=== PATIENT | female | born 1955 | race Asian ===

== ENCOUNTER 2018-10-03 21:37 | Inpatient (IN) | payer MEDICAID ==
[~2018-10-03] VITALS: Ht 154.9 cm; Wt 68.0 kg
[2018-10-04] MEDS ORDERED: SODIUM CHLORIDE 0.9% 1L BAG IV* STA (00:05)
[2018-10-04] MEDS ORDERED: VANCOMYCIN 1 GM (PMX) 250 ML IVPB STA (00:05)
[2018-10-04] MEDS ORDERED: PIPER-TAZO 3.375 GM IV (PMX) 100 ML IVPB STA (00:05)
[2018-10-04] MEDS ORDERED: morphine 4 MG/ML VIAL IV STA (00:15)
[2018-10-04] MEDS ORDERED: ONDANSETRON 4 MG INJ IV STA (00:15)
[2018-10-04] MEDS ORDERED: LEVETIRACETAM 1000 MG (PMX) 100 ML IVPB ONE (01:00)
[2018-10-04] MEDS ORDERED: VANCOMYCIN IV PER PHARMACY XX SCH (02:30)
[2018-10-04] MEDS ORDERED: DOCUSATE SODIUM 100 MG CAP PO PRN (02:30)
[2018-10-04] MEDS ORDERED: ACETAMINOPHEN 325 MG TAB PO PRN (02:30)
[2018-10-04] MEDS ORDERED: NACL 0.9% 3 ML SYG IV SCH (02:30)
[2018-10-04] MEDS ORDERED: ONDANSETRON 4 MG INJ IV PRN (02:30)
[2018-10-04] MEDS ORDERED: BISACODYL (EC) 5 MG TAB PO PRN (02:30)
--- NOTE | 2018-10-04 02:40 | ERD ---
ER Documentation Chief Complaint Chief Complaint SENT BY PCP R/T MULTIPLE ABSCESS HPI This is a 62-year-old female who was sent by her PCP, for concern for multiple large abscesses, specifically over her left breast, as well as her lower abdominal area. Patient brought in with family, it is unclear what triggered these episodes, she had been itching at them, and they have been going on for about at least a week, however she did not want to see a doctor. She denies fever, she has no history of IV drug use. There are no relieving or have eating factors. ROS All systems reviewed and are negative except as per history of present illness. Allergies Allergies: Coded Allergies: No Known Allergy (Unverified , 10/03/18) Physical Exam Vitals Vital Signs Date Temp Pulse Resp B/P (MAP) Pulse Ox O2 O2 Flow FiO2 Time Delivery Rate 10/03/18 98.0 66 18 154/89 98 22:08 (110) Physical Exam Const: No acute distress Head: Atraumatic Eyes: Normal Conjunctiva ENT: Normal External Ears, Nose and Mouth. Neck: Full range of motion. No meningismus. Resp: Clear to auscultation bilaterally Cardio: Regular rate and rhythm, no murmurs Abd: Soft, non tender, non distended. Normal bowel sounds Skin: No petechiae or rashes. Exam performed with yordy Alba, there is a large frequent 4 x 4 area of erythema and induration, with purulence noted at the left breast, and additional approximate 3 x 3 area is also noted of erythema and induration, with drainage in the left lower abdomen. Back: No midline or flank tenderness Ext: No cyanosis, or edema Neur: Awake and alert Psych: Normal Mood and Affect Result Diagram: 10/04/18 0020 10/04/18 0020 Results 24 hrs Laboratory Tests Test 10/04/18 00:20 10/04/18 00:21 10/04/18 00:33 10/04/18 00:35 White Blood Count 6.1 10^3/ul Red Blood Count 4.60 10^6/ul Hemoglobin 12.4 g/dl Hematocrit 38.9 % Mean Corpuscular 84.6 fl Volume Mean Corpuscular 27.0 pg Hemoglobin Mean Corpuscular 31.9 g/dl Hemoglobin Concen t Red Cell 13.8 % Distribution Width Platelet Count 250 10^3/UL Mean Platelet 9.9 fl Volume Immature 0.200 % Granulocytes % Neutrophils % 49.6 % Lymphocytes % 39.9 % Monocytes % 7.2 % Eosinophils % 2.9 % Basophils % 0.2 % Nucleated Red 0.0 /100WBC Blood Cells % Immature 0.010 10^3/ul Granulocytes # Neutrophils # 3.1 10^3/ul Lymphocytes # 2.5 10^3/ul Monocytes # 0.4 10^3/ul Eosinophils # 0.2 10^3/ul Basophils # 0.0 10^3/ul Nucleated Red 0.0 10^3/ul Blood Cells # Prothrombin Time 12.1 Sec Prothrombin Time 0.9 Ratio INR International 0.89 Normalized Ratio Activated 35.5 Sec Partial Thrombopl ast Time Sodium Level 141 mmol/L Potassium Level 4.2 mmol/L Chloride Level 103 mmol/L Carbon Dioxide 31 mmol/L Level Anion Gap 7 Blood Urea 10 mg/dl Nitrogen Creatinine 0.57 mg/dl Est Glomerular > 60 mL/min Filtrat Rate mL/min Glucose Level 103 mg/dl Lactic Acid Level 1.0 mmol/L Calcium Level 9.5 mg/dl Total Bilirubin 0.4 mg/dl Direct Bilirubin 0.00 mg/dl Indirect 0.4 mg/dl Bilirubin Aspartate Amino 23 IU/L Transf (AST/SGOT) Alanine 28 IU/L Aminotransferase (ALT/SGPT) Alkaline 63 IU/L Phosphatase Troponin I < 0.012 ng/ml Total Protein 7.2 g/dl Albumin 4.0 g/dl Globulin 3.20 g/dl Albumin/Globulin 1.25 Ratio Urine Color YELLOW Urine Clarity CLEAR Urine pH 7.0 Urine Specific 1.013 [place] Urine Ketones NEGATIVE mg/dL Urine Nitrite NEGATIVE mg/dL Urine Bilirubin NEGATIVE mg/dL Urine NEGATIVE mg/dL Urobilinogen Urine Leukocyte NEGATIVE Bear/ul Esterase Urine Hemoglobin NEGATIVE mg/dL Urine Glucose NEGATIVE mg/dL Urine Total NEGATIVE mg/dl Protein Urine Opiates Negative Screen Urine Negative Barbiturates Urine Negative Amphetamines Screen Urine Negative Benzodiazepines Screen Urine Cocaine Negative Screen Urine Negative Cannabinoids POC Venous 0.8 mmol/L Lactate Current Medications Medications Dose Sig/Gunjan Start Time Status Last (Trade) Ordered Route PRN Stop Time Admin Dose Reason Admin Sodium 2,050 ml BOLUS OVER 2 10/04/18 DC 10/04/18 Chloride HOURS STAT 00:05 00:56 (NS) IV* 10/04/18 00:11 Vancomycin 250 ml @ ONCE STAT 10/04/18 DC 10/04/18 HCl 125 mls/hr IVPB 00:05 00:57 10/04/18 02:04 Piperacillin 100 ml @ ONCE STAT 10/04/18 DC 10/04/18 Sod/ 200 mls/hr IVPB 00:05 00:30 Tazobactam 10/04/18 00:34 Sod Morphine 4 mg ONCE STAT 10/04/18 DC 10/04/18 Sulfate IV 00:15 00:56 (morphine) 10/04/18 00:17 Ondansetron 4 mg ONCE STAT 10/04/18 DC 10/04/18 HCl (Zofran IV 00:15 00:56 Inj) 10/04/18 00:17 100 ml @ ONCE ONCE 10/04/18 DC Levetiracetam 400 mls/hr IVPB 01:00 10/04/18 01:14 Sodium 1,000 ml @ [id number] IV 10/04/18 Chloride 80 mls/hr 02:05 IV Flush 3 ml PER 10/04/18 (NS 3 ml) PROTOCOL IV 02:30 Ondansetron 4 mg Q6H PRN 10/04/18 HCl (Zofran IV 02:30 Inj) NAUSEA/VOMITI NG 650 mg Q6H PRN 10/04/18 Acetaminophen PO .PAIN 1-3 02:30 (Tylenol OR TEMP Tab) 1 tab Q6H PRN 10/04/18 Acetaminophen PO .MOD PAIN 02:30 / 4-6 Hydrocodone Bitart ([place] (5/325)) Docusate 100 mg Q12H PRN 10/04/18 Sodium PO 02:30 (Colace) .CONSTIPATION Bisacodyl 5 mg DAILY PRN 10/04/18 (Dulcolax) PO 02:30 .CONSTIPATION Vancomycin VANCOMYCIN PER 10/04/18 HCl (Vanco PER PHARMACY PROTOCOL XX 02:30 Iv Per Pharmacy) Piperacillin 100 ml @ Q6 IVPB 10/04/18 Sod/ 200 mls/hr 06:00 Tazobactam Sod Vancomycin 250 ml @ Q12H IVPB 10/04/18 HCl 125 mls/hr 13:00 Procedures/MDM This is a 62-year-old female presents for evaluation of possible abscess. My primary concern, given multiple lesions is for possible bloodstream infection, patient has no history of immunosuppression, she has not an IV drug user, the etiology of the lesions is unclear, they have it may have started excoriations, which developed into open wounds which were untreated. She will be treated empirically with IV antibiotics, and will be admitted. Patient has no evidence of sepsis or severe sepsis. EKG: Rate/Rhythm: Normal Sinus Rhythm QRS, ST, T-waves: No changes consistent w/ acute ischemia Impression: No evidence of ischemia or arrhythmia Accepting Care Team: Current data and ongoing care discussed. Primary: Ray Consulting: Dennis Outstanding Data: Ultrasound, CT abdomen pelvis results Departure Diagnosis: Primary Impression: Abscess Additional Impression: Cellulitis Site of cellulitis: unspecified site Qualified Codes: L03.90 - Cellulitis, unspecified Condition: Stable CLEMENTE HALL MD October 04, 2018 02:40
[2018-10-04] MEDS ORDERED: IBUP200C11 PO (03:29)
[2018-10-04] MEDS: SOD CHLORIDE 0.9% 1,000 ML IV SCH ×3 (04:53→19:28)
--- NOTE | 2018-10-04 05:45 | HP ---
Date/Time of Note Date/Time of Note DATE: 10/04/18 TIME: 05:35 Assessment/Plan VTE Prophylaxis SCD applied (from Nsg): Yes Pharmacological prophylaxis: NA/contraindicated Pharm contraindication: low risk/ambulating Lines/Catheters IV Catheter Type (from Nrsg): Saline Lock Assessment/Plan Hospital Course This is a 62-year-old female being admitted to the [facility] floor for: #1 left abdominal wall abscess: CT scan shows: Skin thickening and subcutaneous stranding across the lower ventral abdominal wall with a focal area of nodular thickening within the left lower ventral abdominal wall measuring 2.3 x 1.5 cm. Findings could suggest an abscess. Broad-spectrum antibiotics of vancomycin and Zosyn. General surgery Dr. Collins has been consulted for incision and debridement by [facility]. Will keep patient n.p.o., IV fluid hydration normal saline. Pain management. Zofran for nausea. #2 left breast abscess: 2.7 x 0.8 cm heterogeneous subcutaneous lesion at the 3 o'clock position of the left breast. This may represent a complex fluid collection or abscess. On broad-spectrum antibiotic to vancomycin and Zosyn and again Dr. Collins of general surgery has been consulted. #3 DVT GI prophylaxis: SCDs, no GI prophylaxis indicated Further treatment strategy will be implemented as per the clinical course Result Diagram: 10/04/18 0020 10/04/18 0020 Results 24hrs Laboratory Tests Test 10/04/18 00:20 10/04/18 00:21 10/04/18 00:33 10/04/18 00:35 White Blood Count 6.1 Red Blood Count 4.60 Hemoglobin 12.4 Hematocrit 38.9 Mean Corpuscular 84.6 Volume Mean Corpuscular 27.0 L Hemoglobin Mean Corpuscular 31.9 L Hemoglobin Concent Red Cell 13.8 Distribution Width Platelet Count 250 Mean Platelet Volume 9.9 Immature 0.200 Granulocytes % Neutrophils % 49.6 Lymphocytes % 39.9 Monocytes % 7.2 Eosinophils % 2.9 Basophils % 0.2 Nucleated Red Blood 0.0 Cells % Immature 0.010 Granulocytes # Neutrophils # 3.1 Lymphocytes # 2.5 Monocytes # 0.4 Eosinophils # 0.2 Basophils # 0.0 Nucleated Red Blood 0.0 Cells # Prothrombin Time 12.1 Prothrombin Time 0.9 Ratio INR International 0.89 Normalized Ratio Activated 35.5 H Partial Thromboplast Time Sodium Level 141 Potassium Level 4.2 Chloride Level 103 Carbon Dioxide Level 31 Anion Gap 7 Blood Urea Nitrogen 10 Creatinine 0.57 Est Glomerular > 60 Filtrat Rate mL/min Glucose Level 103 Lactic Acid Level 1.0 Calcium Level 9.5 Total Bilirubin 0.4 Direct Bilirubin 0.00 Indirect Bilirubin 0.4 Aspartate Amino 23 Transf (AST/SGOT) Alanine 28 Aminotransferase (AL T/SGPT) Alkaline Phosphatase 63 Troponin I < 0.012 Total Protein 7.2 Albumin 4.0 Globulin 3.20 Albumin/Globulin 1.25 Ratio Urine Color YELLOW Urine Clarity CLEAR Urine pH 7.0 Urine Specific 1.013 [place] Urine Ketones NEGATIVE Urine Nitrite NEGATIVE Urine Bilirubin NEGATIVE Urine Urobilinogen NEGATIVE Urine Leukocyte NEGATIVE Esterase Urine Hemoglobin NEGATIVE Urine Glucose NEGATIVE Urine Total Protein NEGATIVE Urine Opiates Screen Negative Urine Barbiturates Negative Urine Amphetamines Negative Screen Urine Negative Benzodiazepines Screen Urine Cocaine Screen Negative Urine Cannabinoids Negative POC Venous Lactate 0.8 HPI/ROS Admit Date/Time Admit Date/Time Hx of Present Illness Chief complaint: Sent in by PCP for abscesses of her breast and abdomen This is a 62-year-old female who was sent by her PCP, for concern for multiple large abscesses, specifically over her left breast, as well as her lower abdominal area. Patient reports that she lives by herself and that she had possibly eaten something a few days ago that caused her to get severe itching. She has been itching her breast and her abdomen over the last few days and developed bumps on her left breast as well as abdomen that have become more red and has started leaking over the last few days. She denies any fevers. She has no history of IV drug use. Allergies: NKDA Medications: None ROS Const: As per HPI ENT: No pain, sore throat, congestion, congestion, dysphagia or discharge Respiratory: No shortness of breath, cough, sputum, wheezing, or pleuritic pain Cardiovascular: No chest pain, palpitation, PND, or edema GI : no change in appetite, abdominal pain, nausea, vomiting, diarrhea, constipation, or change in the color his stool Genitourinary: No dysuria, hematuria, flank pain , discharge or CVA tenderness Musculoskeletal: No joint pain, back pain, neck pain, restricted range of motion in neck or joints Skin: As per HPI Neuro: No headache, dizziness, syncope, seizure, focal weakness Endocrine: No polyuria, polydipsia, temperature intolerance Psych: No hallucination, depression, anxiety or suicidal ideation PMH/Family/Social Past Medical History Medical History: no pertinent history Medications Current Medications Sodium Chloride 1,000 ml @ 80 mls/hr [id number] IV Last administered on 10/04/18at 04:53; Admin Dose 80 MLS/HR; Start 10/04/18 at 02:05 IV Flush (NS 3 ml) 3 ml PER PROTOCOL IV ; Start 10/04/18 at 02:30 Ondansetron HCl (Zofran Inj) 4 mg Q6H PRN IV NAUSEA/VOMITING; Start 10/04/18 at 02:30 Acetaminophen (Tylenol Tab) 650 mg Q6H PRN PO .PAIN 1-3 OR TEMP; Start 10/04/18 at 02:30 Acetaminophen/ Hydrocodone Bitart ([place] (5/325)) 1 tab Q6H PRN PO .MOD PAIN 4- 6; Start 10/04/18 at 02:30 Docusate Sodium (Colace) 100 mg Q12H PRN PO .CONSTIPATION; Start 10/04/18 at 02:30 Bisacodyl (Dulcolax) 5 mg DAILY PRN PO .CONSTIPATION; Start 10/04/18 at 02:30 Vancomycin HCl (Vanco Iv Per Pharmacy) VANCOMYCIN PER PHARMACY PER PROTOCOL XX ; Start 10/04/18 at 02:30 Piperacillin Sod/ Tazobactam Sod 100 ml @ 200 mls/hr Q6 IVPB ; Start 10/04/18 at 06:00 Vancomycin HCl 250 ml @ 125 mls/hr Q12H IVPB ; Start 10/04/18 at 13:00 Coded Allergies: No Known Allergy (Unverified , 10/03/18) Past Surgical History Past Surgical Hx: no surgical history Family History Significant Family History: no pertinent family hx Social History Alcohol Use: none Smoking Status: Never smoker Drug Use: none Exam/Review of Systems Vital Signs Vitals Vital Signs Date Temp Pulse Resp B/P (MAP) Pulse Ox O2 O2 Flow FiO2 Time Delivery Rate 10/04/18 72 13 120/67 96 Room Air 04:16 (84) 10/03/18 98.0 22:08 Exam Exam General: Currently lying in bed in mild discomfort from her breast and abdominal abscess HEENT: Atraumatic, normocephalic. The pupils are equal, round and reactive. Extraocular motor are intact Neck: Supple with full range of motion. No rigidity or meningismus Chest: Nontender Lungs: Clear to auscultation bilaterally no crackles rales or wheezing Heart: Normal S1-S2, Regular rhythm and rate. No murmur, S3, or S4 Abdomen: Soft , nontender, nondistended , bowel sounds are present. No guarding no rebound tenderness , No masses or organomegaly. No costovertebral temporal angle mass Extremities: Normal to inspection, no edema no cyanosis Skin: Left breast approximately 2 x 1 cm abscess, serosanguineous discharge, erythematous, mild tenderness to palpation, abdominal wall abscess approximately 2 x 2 centimeter, serosanguineous drainage, tender to palpation erythematous Neurologic: Normal mental status, speech normal, cranial nerves II through XII are intact, motor and sensory are intact, Additional Comments PROCEDURE: CT Abdomen and pelvis without contrast. CLINICAL INDICATION: Abdominal pain. TECHNIQUE: CT scan of the abdomen and pelvis was performed on a multi- detector high-resolution CT scanner. Contiguous axial images were obtained from the lung bases to the ischial tuberosities without intravenous contrast. Coronal and sagittal reformatted images were also obtained. Images were reviewed on the PACS workstation. DICOM images are available. One or more of the following dose reduction techniques were used: - Automated exposure control. - Adjustment of the mA and/or kV according to patient size. - Use of iterative reconstruction technique. Exam CTD/vol = 10.34 mGy. Total exam DLP = 605.35 mGy-cm. COMPARISON: None. FINDINGS: Evaluation of the lung bases demonstrates mild bibasilar atelectasis. Abdomen: The liver is normal in size. There is no focal mass or dilatation of the biliary tree. The gallbladder is not distended. The spleen, pancreas and bilateral adrenal glands are within normal limits. Bilateral kidneys are normal in size with no contour deforming mass identified. There is no radiopaque renal or ureteral calculus identified. There is no hydronephrosis or hydroureter. There is no retroperitoneal adenopathy. The abdominal aorta is of normal caliber. There is skin thickening or across the lower ventral abdominal wall with subcutaneous stranding. There is an area of focal nodular thickening within the left lower ventral abdominal wall measuring 2.3 x 1.5 cm. There is no bowel obstruction or free air. A normal appendix is identified. There is no diverticulosis or diverticulitis. There is no ascites. Pelvis: The bladder is unremarkable. The uterus and adnexa are within normal limits. There is no significant pelvic adenopathy or free fluid. Evaluation of the osseous structures demonstrates no suspicious lytic or blastic lesion. IMPRESSION: Skin thickening and subcutaneous stranding across the lower ventral abdominal wall with a focal area of nodular thickening within the left lower ventral abdominal wall measuring 2.3 x 1.5 cm. Findings could suggest an abscess; however, study is limited by lack of intravenous contrast. .Juan Reeder MD, MD Date Time Electronically viewed and signed by .Juan Reeder MD, MD on 10/04/2018 03:49 .T/ CC: CLEMENTE HALL MD [id number] PROCEDURE: Left breast ultrasound. CLINICAL INDICATION: Left breast pain. Evaluate for abscess. TECHNIQUE: Left whole breast and axillary sonography was performed. COMPARISON: US BREAST 11/10/2016. FINDINGS: 93 o'clock position of the left breast, there is a heterogeneous subcutaneous ovoid lesion measuring 2.7 x 0.8 cm. Soft tissue swelling is noted. No dominant cysts are present. No malignant adenopathy is identified. IMPRESSION: 1. 2.7 x 0.8 cm heterogeneous subcutaneous lesion at the 3 o'clock position of the left breast. This may represent a complex fluid collection or abscess. Correlate clinically. BI-RADS 3 short-term follow up is recommended. Physician Shelby Date Time Electronically viewed and signed by Physician Shelby on 10/04/2018 04:40 CS/ CC: CLEMENTE HALL MD [id number] ROGERIO NUNN 17, 2019 05:45
[2018-10-04] MEDS: PIPER-TAZO 3.375 GM IV (PMX) 100 ML IVPB SCH ×3 (06:19→18:40)
[2018-10-04 08:30] VITALS: Ht 154.9 cm; Wt 68.0 kg
[2018-10-04 08:39] VITALS: BP 152/78; PULSE 68; RESP 18
[2018-10-04] MEDS: HYDROCODONE/APAP (5/325) TAB PO PRN ×3 (10:50→21:59)
--- NOTE | 2018-10-04 11:44 | EN ---
Date/Time of Note Date/Time of Note DATE: 10/04/18 TIME: 11:43 Event Note Medicine Medicine Event Note 62-year-old female who was admitted earlier today when she had come in with multiple abscesses sent by her PCP. She has had severe itching over the last few days and abscesses have occurred subsequently. She is currently admitted and managed as follows: 1. Multiple abscesses over breast and abdomen -CT of the abdomen did show left lower ventral abdominal wall abscess measuring 2 x 1 cm -Left breast ultrasound shows 2 x 0 point 8 subcutaneous abscess also left breast 2. Hypertension: Suboptimal control -Resume home meds and titrate for optimization 3. Elevated TSH, subclinical hypothyroidism -Check free T4 Plan: -We will try to get wound cultures, warm compresses -General surgery consultation has been obtained, which recommendations -We will also order infectious disease consult -Continue IV antibiotics and supportive care. DEMAR STEELE October 04, 2018 11:44
[2018-10-04 13:33] VITALS: BP 139/73; PULSE 57; RESP 18
[2018-10-04] MEDS: VANCOMYCIN 1 GM 250 ML IVPB SCH (14:24)
--- NOTE | 2018-10-04 14:24 | RADRPT ---
Vent Rate: 70 bpm RR Interval: 0 msec MD Interval: 168 msec QRS Duration: 84 msec QT Interval: 408 msec QTC Interval: 440 msec P-R-T [place]: 68 - 76 - 55 degrees Normal sinus rhythm Nonspecific ST abnormality Abnormal ECG Electronically Signed By: [facility]
[2018-10-04 20:00] VITALS: BP 138/73; PULSE 60; RESP 16
--- NOTE | 2018-10-04 22:17 | QN ---
Documentation Comment Spoke to Dr. Collins of surgery. He did request an IR consultation for aspiration of the abscesses, if the abscesses are not amenable to IR aspiration then he will proceed to surgical I&D. Consult is in place for IR. ROGERIO NUNN October 04, 2018 22:17
[2018-10-05] VITALS (15 sets, daily range): BP systolic 114–153; BP diastolic 58–72; PULSE 56–88; RESP 10–18
[2018-10-05] MEDS: PIPER-TAZO 3.375 GM IV (PMX) 100 ML IVPB SCH ×5 (00:06→23:17)
[2018-10-05] MEDS: VANCOMYCIN 1 GM 250 ML IVPB SCH ×2 (01:22→16:57)
--- NOTE | 2018-10-05 09:13 | PN ---
Date/Time of Note Date/Time of Note DATE: 10/05/18 TIME: 09:13 Assessment/Plan VTE Prophylaxis Risk score (from Ns)>0 risk: 1 SCD applied (from Ns): Yes Pharmacological prophylaxis: NA/contraindicated Pharm contraindication: low risk/ambulating Lines/Catheters IV Catheter Type (from Nrsg): Peripheral IV Urinary Cath still in place: No Assessment/Plan Assessment/Plan 1. Left breast abscess - Still with drainage and patient complaining of pain with dressing changes - Continue current antibiotics and await culture results - General surgery on board and appreciate recommendations. Recommending IR drainage first and if unable to perform will take to OR but would like to avoid. - Pain control 2. Left abdominal wall abscess - Gen surgery recommending IR drainage as well - Continue local wound care - IV antibiotics on board 3. Disposition - Awaiting drainage of abscesses - continue IV antibiotics and awaiting culture results Result Diagram: 10/05/18 0427 10/05/18 0427 Results 24hrs Laboratory Tests Test 10/05/18 04:27 White Blood Count 4.9 Red Blood Count 4.34 Hemoglobin 11.7 L Hematocrit 37.0 Mean Corpuscular Volume 85.3 Mean Corpuscular Hemoglobin 27.0 L Mean Corpuscular Hemoglobin Concent 31.6 L Red Cell Distribution Width 13.5 Platelet Count 225 Mean Platelet Volume 10.2 Immature Granulocytes % 0.200 Neutrophils % 53.2 Lymphocytes % 33.9 Monocytes % 8.6 Eosinophils % 3.9 Basophils % 0.2 Nucleated Red Blood Cells % 0.0 Immature Granulocytes # 0.010 Neutrophils # 2.6 Lymphocytes # 1.7 Monocytes # 0.4 Eosinophils # 0.2 Basophils # 0.0 Nucleated Red Blood Cells # 0.0 Sodium Level 139 Potassium Level 4.1 Chloride Level 105 Carbon Dioxide Level 28 Anion Gap 6 Blood Urea Nitrogen 6 L Creatinine 0.68 Est Glomerular Filtrat Rate mL/min > 60 Glucose Level 76 Calcium Level 8.7 Total Bilirubin 0.6 Direct Bilirubin 0.00 Indirect Bilirubin 0.6 Aspartate Amino Transf (AST/SGOT) 27 Alanine Aminotransferase (ALT/SGPT) 21 Alkaline Phosphatase 44 Total Protein 6.7 Albumin 3.5 Globulin 3.20 Albumin/Globulin Ratio 1.09 Free Thyroxine 1.53 Subjective 24 Hr Interval Summary Free Text/Dictation Patient is complaining of pain and discomfort in left breast and left lower abdominal area. Discussed with Gen Surgery that best to try IR drainage before I&D in the OR. No acute overnight events. Exam/Review of Systems Exam Vitals Vital Signs Date Temp Pulse Resp B/P (MAP) Pulse Ox O2 O2 Flow FiO2 Time Delivery Rate 10/05/18 98.3 63 16 132/67 96 Room Air 07:22 (88) Intake and Output 10/04/18 10/04/18 10/05/18 1515:00 23:00 07:00 IntakeIntake Total 200 ml 1350 ml 1150 ml BalanceBalance 200 ml 1350 ml 1150 ml Exam General: Distress secondary to pain when moves or breast/abdominal areas touched Neck: Supple Chest: Tender left breast Lungs: Clear to auscultation bilaterally no crackles rales or wheezing Heart: Normal S1-S2, Regular rhythm and rate. No murmur, S3, or S4 Abdomen: Soft , tenderness LLQ at site of abscess, protuberant , bowel sounds are present. No guarding no rebound tenderness , No masses or organomegaly. No costovertebral temporal angle mass Extremities: Normal to inspection, no edema no cyanosis Skin: Left breast abscess with erythema, serous discharge, purulent fluid, erythematous, tender to palpation, abdominal wall abscess approximately 2 x 2 centimeter with surround erythema, and serosanguineous drainage Neurologic: Normal mental status, speech normal, cranial nerves II through XII are intact, motor and sensory are intact, Results Results 24hrs Laboratory Tests Test 10/05/18 04:27 White Blood Count 4.9 Red Blood Count 4.34 Hemoglobin 11.7 L Hematocrit 37.0 Mean Corpuscular Volume 85.3 Mean Corpuscular Hemoglobin 27.0 L Mean Corpuscular Hemoglobin Concent 31.6 L Red Cell Distribution Width 13.5 Platelet Count 225 Mean Platelet Volume 10.2 Immature Granulocytes % 0.200 Neutrophils % 53.2 Lymphocytes % 33.9 Monocytes % 8.6 Eosinophils % 3.9 Basophils % 0.2 Nucleated Red Blood Cells % 0.0 Immature Granulocytes # 0.010 Neutrophils # 2.6 Lymphocytes # 1.7 Monocytes # 0.4 Eosinophils # 0.2 Basophils # 0.0 Nucleated Red Blood Cells # 0.0 Sodium Level 139 Potassium Level 4.1 Chloride Level 105 Carbon Dioxide Level 28 Anion Gap 6 Blood Urea Nitrogen 6 L Creatinine 0.68 Est Glomerular Filtrat Rate mL/min > 60 Glucose Level 76 Calcium Level 8.7 Total Bilirubin 0.6 Direct Bilirubin 0.00 Indirect Bilirubin 0.6 Aspartate Amino Transf (AST/SGOT) 27 Alanine Aminotransferase (ALT/SGPT) 21 Alkaline Phosphatase 44 Total Protein 6.7 Albumin 3.5 Globulin 3.20 Albumin/Globulin Ratio 1.09 Free Thyroxine 1.53 Medications Medication Current Medications Sodium Chloride 1,000 ml @ 80 mls/hr [id number] IV Last administered on 10/04/18at 19:28; Admin Dose 80 MLS/HR; Start 10/04/18 at 02:05 IV Flush (NS 3 ml) 3 ml PER PROTOCOL IV ; Start 10/04/18 at 02:30 Ondansetron HCl (Zofran Inj) 4 mg Q6H PRN IV NAUSEA/VOMITING; Start 10/04/18 at 02:30 Acetaminophen (Tylenol Tab) 650 mg Q6H PRN PO .PAIN 1-3 OR TEMP; Start 10/04/18 at 02:30 Acetaminophen/ Hydrocodone Bitart ([place] (5/325)) 1 tab Q6H PRN PO .MOD PAIN 4- 6 Last administered on 10/04/18at 21:59; Admin Dose 1 TAB; Start 10/04/18 at 02:3 0 Docusate Sodium (Colace) 100 mg Q12H PRN PO .CONSTIPATION; Start 10/04/18 at 02:30 Bisacodyl (Dulcolax) 5 mg DAILY PRN PO .CONSTIPATION; Start 10/04/18 at 02:30 Vancomycin HCl (Vanco Iv Per Pharmacy) VANCOMYCIN PER PHARMACY PER PROTOCOL XX ; Start 10/04/18 at 02:30 Piperacillin Sod/ Tazobactam Sod 100 ml @ 200 mls/hr Q6 IVPB Last administered on 10/05/18at 05:24; Admin Dose 200 MLS/HR; Start 10/04/18 at 06:00 Vancomycin HCl 250 ml @ 125 mls/hr Q12H IVPB Last administered on 10/05/18at 01:22; Admin Dose 125 MLS/HR; Start 10/04/18 at 13:00 Miscellaneous Information (*Rx Drug Level Order Reminder*) VANCOMYCIN TROUGH AT 1200 ONCE ONCE XX ; Start 10/05/18 at 12:00; Stop 10/05/18 at 12:01 CHARLINE OCHOA MD October 05, 2018 09:13
[2018-10-05] MEDS: SOD CHLORIDE 0.9% 1,000 ML IV SCH (11:29)
--- NOTE | 2018-10-05 13:07 | CONS ---
Assessment/Plan Assessment/Plan Assessment/Plan (Daily) Soft tissue infection possibly secondary to trauma from pruritus. Now has evolved into soft tissue infection versus abscess left breast and left anterior abdominal wall. These seem less likely to be amenable to percutaneous drainage and appeared to require surgical debridement. I discussed with the patient regulations for surgical debridement which would involve debriding nonviable lysed tissue and leaving the wounds open for secondary closure. Patient understands risk of symptoms include possibility of finding infectious agent which may require subsequent to treatment, antibiotics or further surgery. OR has been called we will proceed to approved soon is time to be available. Consultation Date/Type/Reason Admit Date/Time Date of Consultation: October 05, 2018 Type of Consult General surgery Reason for Consultation Abdominal wall soft tissue infection and left breast inflammation Requesting Provider: ROGERIO NUNN Date/Time of Note DATE: 10/05/18 TIME: 13:06 Hx of Present Illness Patient noted several days of increasing itching and pain and swelling in the left breast and left abdominal wall. Patient states that she thought she had an allergic reaction to some food and was itching her abdomen and breast and subse quently appears to have developed infection. Initially she thought that she had a small pimple squeeze but the itching continued she presented to the emergency room for evaluation she was noted to have multiple small abscesses left breast and a larger on the left and anterior abdominal wall. These have not been noted in the past. Patient has no significant past medical history no similar past surgical history. Patient denies any illicit drug use denies any skin popping does not use needles or any other trauma noted. On CAT scan there is a 2-1/2 x 3 cm in the left anterior abdominal wall with some stranding consistent with soft tissue infection left breast there is a second area which was approximately 2 cm with some mixed density consistent with soft tissue infection versus abscess Past Medical History Medical History: no pertinent history Home Meds Reported Medications Ibuprofen* (Advil*) 200 Mg Capsule, 200 MG PO Q6H PRN for PAIN, CAP 10/04/18 Medications Current Medications Sodium Chloride 1,000 ml @ 80 mls/hr [id number] IV Last administered on 10/05/18at 11:29; Admin Dose 80 MLS/HR; Start 10/04/18 at 02:05 IV Flush (NS 3 ml) 3 ml PER PROTOCOL IV ; Start 10/04/18 at 02:30 Ondansetron HCl (Zofran Inj) 4 mg Q6H PRN IV NAUSEA/VOMITING; Start 10/04/18 at 02:30 Acetaminophen (Tylenol Tab) 650 mg Q6H PRN PO .PAIN 1-3 OR TEMP; Start 10/04/18 at 02:30 Acetaminophen/ Hydrocodone Bitart ([place] (5/325)) 1 tab Q6H PRN PO .MOD PAIN 4- 6 Last administered on 10/04/18at 21:59; Admin Dose 1 TAB; Start 10/04/18 at 02:30 Docusate Sodium (Colace) 100 mg Q12H PRN PO .CONSTIPATION; Start 10/04/18 at 02:30 Bisacodyl (Dulcolax) 5 mg DAILY PRN PO .CONSTIPATION; Start 10/04/18 at 02:30 Vancomycin HCl (Vanco Iv Per Pharmacy) VANCOMYCIN PER PHARMACY PER PROTOCOL XX ; Start 10/04/18 at 02:30 Piperacillin Sod/ Tazobactam Sod 100 ml @ 200 mls/hr Q6 IVPB Last administered on 10/05/18at 11:29; Admin Dose 200 MLS/HR; Start 10/04/18 at 06:00 Vancomycin HCl 250 ml @ 125 mls/hr Q12H IVPB Last administered on 10/05/18at 01:22; Admin Dose 125 MLS/HR; Start 10/04/18 at 13:00 Allergies: Coded Allergies: No Known Allergy (Unverified , 10/03/18) Past Surgical History Past Surgical Hx: no surgical history Social History Alcohol Use: none Smoking Status: Never smoker Drug Use: none Exam/Review of Systems Exam Vitals Vital Signs Date Temp Pulse Resp B/P (MAP) Pulse Ox O2 O2 Flow FiO2 Time Delivery Rate 10/05/18 98.3 63 16 132/67 96 Room Air 07:22 (88) Intake and Output 10/04/18 10/04/18 10/05/18 1515:00 23:00 07:00 IntakeIntake Total 200 ml 1350 ml 1150 ml BalanceBalance 200 ml 1350 ml 1150 ml Exam The left breast there is erythema tenderness consistent with a cellulitis and area of fluctuance the left periareolar area there is no palpable masses there is no lymphadenopathy. On the left anterior abdominal wall there is a ulcerated wound with some fibrinous exudate and surrounding erythema. There is no spontaneous drainage. Results Result Diagram: 10/05/18 0427 10/05/18 0427 Results 24hrs Laboratory Tests Test 10/05/18 04:27 10/05/18 12:03 White Blood Count 4.9 Red Blood Count 4.34 Hemoglobin 11.7 L Hematocrit 37.0 Mean Corpuscular Volume 85.3 Mean Corpuscular Hemoglobin 27.0 L Mean Corpuscular Hemoglobin Concent 31.6 L Red Cell Distribution Width 13.5 Platelet Count 225 Mean Platelet Volume 10.2 Immature Granulocytes % 0.200 Neutrophils % 53.2 Lymphocytes % 33.9 Monocytes % 8.6 Eosinophils % 3.9 Basophils % 0.2 Nucleated Red Blood Cells % 0.0 Immature Granulocytes # 0.010 Neutrophils # 2.6 Lymphocytes # 1.7 Monocytes # 0.4 Eosinophils # 0.2 Basophils # 0.0 Nucleated Red Blood Cells # 0.0 Sodium Level 139 Potassium Level 4.1 Chloride Level 105 Carbon Dioxide Level 28 Anion Gap 6 Blood Urea Nitrogen 6 L Creatinine 0.68 Est Glomerular Filtrat Rate mL/min > 60 Glucose Level 76 Calcium Level 8.7 Total Bilirubin 0.6 Direct Bilirubin 0.00 Indirect Bilirubin 0.6 Aspartate Amino Transf (AST/SGOT) 27 Alanine Aminotransferase (ALT/SGPT) 21 Alkaline Phosphatase 44 Total Protein 6.7 Albumin 3.5 Globulin 3.20 Albumin/Globulin Ratio 1.09 Free Thyroxine 1.53 Vancomycin Level Trough 11.3 Medications Medication Current Medications Sodium Chloride 1,000 ml @ 80 mls/hr [id number] IV Last administered on 10/05/18at 11:29; Admin Dose 80 MLS/HR; Start 10/04/18 at 02:05 IV Flush (NS 3 ml) 3 ml PER PROTOCOL IV ; Start 10/04/18 at 02:30 Ondansetron HCl (Zofran Inj) 4 mg Q6H PRN IV NAUSEA/VOMITING; Start 10/04/18 at 02:30 Acetaminophen (Tylenol Tab) 650 mg Q6H PRN PO .PAIN 1-3 OR TEMP; Start 10/04/18 at 02:30 Acetaminophen/ Hydrocodone Bitart ([place] (5/325)) 1 tab Q6H PRN PO .MOD PAIN 4- 6 Last administered on 10/04/18at 21:59; Admin Dose 1 TAB; Start 10/04/18 at 02:30 Docusate Sodium (Colace) 100 mg Q12H PRN PO .CONSTIPATION; Start 10/04/18 at 02:30 Bisacodyl (Dulcolax) 5 mg DAILY PRN PO .CONSTIPATION; Start 10/04/18 at 02:30 Vancomycin HCl (Vanco Iv Per Pharmacy) VANCOMYCIN PER PHARMACY PER PROTOCOL XX ; Start 10/04/18 at 02:30 Piperacillin Sod/ Tazobactam Sod 100 ml @ 200 mls/hr Q6 IVPB Last administered on 10/05/18at 11:29; Admin Dose 200 MLS/HR; Start 10/04/18 at 06:00 Vancomycin HCl 250 ml @ 125 mls/hr Q12H IVPB Last administered on 10/05/18at 01:22; Admin Dose 125 MLS/HR; Start 10/04/18 at 13:00 MATT MONTANEZ MD October 05, 2018 13:07
--- NOTE | 2018-10-05 13:39 | PREAC ---
Date/Time of Note Date/Time of Note DATE: 10/05/18 TIME: 13:34 Anesthesia Eval and Record Evaluation Time Pre-Procedure Interview DATE: 10/05/18 TIME: 13:34 Age 62 Sex female NPO: 8 hrs Preoperative diagnosis Lt breast and abdominal abscess and soft tissue infection Planned procedure Lt breast and abdominal I&D of abscess Past Medical History Past Medical History: None Surgery & Anesthesia Issues No known issue Meds Anticoagulation: No Beta Chance within 24 hr: No Reason Beta Chance not given: Pt. not on B-Chance Reported Medications Ibuprofen* (Advil*) 200 Mg Capsule, 200 MG PO Q6H PRN for PAIN, CAP 10/04/18 Current Medications Sodium Chloride 1,000 ml @ 80 mls/hr [id number] IV Last administered on 10/05/18at 11:29; Admin Dose 80 MLS/HR; Start 10/04/18 at 02:05 IV Flush (NS 3 ml) 3 ml PER PROTOCOL IV ; Start 10/04/18 at 02:30 Ondansetron HCl (Zofran Inj) 4 mg Q6H PRN IV NAUSEA/VOMITING; Start 10/04/18 at 02:30 Acetaminophen (Tylenol Tab) 650 mg Q6H PRN PO .PAIN 1-3 OR TEMP; Start 10/04/18 at 02:30 Acetaminophen/ Hydrocodone Bitart ([place] (5/325)) 1 tab Q6H PRN PO .MOD PAIN 4- 6 Last administered on 10/04/18at 21:59; Admin Dose 1 TAB; Start 10/04/18 at 02:30 Docusate Sodium (Colace) 100 mg Q12H PRN PO .CONSTIPATION; Start 10/04/18 at 02:30 Bisacodyl (Dulcolax) 5 mg DAILY PRN PO .CONSTIPATION; Start 10/04/18 at 02:30 Vancomycin HCl (Vanco Iv Per Pharmacy) VANCOMYCIN PER PHARMACY PER PROTOCOL XX ; Start 10/04/18 at 02:30 Piperacillin Sod/ Tazobactam Sod 100 ml @ 200 mls/hr Q6 IVPB Last administered on 10/05/18at 11:29; Admin Dose 200 MLS/HR; Start 10/04/18 at 06:00 Vancomycin HCl 250 ml @ 125 mls/hr Q12H IVPB Last administered on 10/05/18at 01:22; Admin Dose 125 MLS/HR; Start 10/04/18 at 13:00 Meds reviewed: Yes Allergies Coded Allergies: No Known Allergy (Unverified , 10/03/18) Allergies Reviewed: Yes Labs/Studies Labs Reviewed: Reviewed by anesthesiologist Result Diagram: 10/05/18 0427 10/05/18 0427 Laboratory Tests 10/05/18 04:27 test: N/A Studies: ECG Pre-procedure Exam Last vitals Vital Signs Date Temp Pulse Resp B/P (MAP) Pulse Ox O2 O2 Flow FiO2 Time Delivery Rate 10/05/18 98.3 63 16 132/67 96 Room Air 07:22 (88) Airway: Adequate mouth opening, Adequate thyromental dist Mallampati: Mallampati II Teeth: Normal Lung: Normal Heart: Normal ASA Physical Status ASA physical status: 3 Emergency: E Planned Anesthetic General/MAC: LMA Planned Pain Management Parenteral pain med Pre-operative Attestations Prior to commencing anesthesia and surgery, the patient was re-evaluated, there was verification of: *The patient's identity *The results of appropriate recent lab work and preoperative vital signs *The above evaluation not changing prior to induction *Anesthetic plan, risk benefits, alternative and complications discussed with patient/family; questions answered; patient/family understands, accepts and wishes to proceed. ZO STEVENS MD October 05, 2018 13:39
[2018-10-05] MEDS ORDERED: MIDAZOLAM 1 MG/ML 2 ML INJ ONE (13:59)
[2018-10-05] MEDS ORDERED: FENTAnyl 50 MCG/ML VIAL ONE (13:59)
[2018-10-05] MEDS ORDERED: DIPHENHYDRAMINE 50 MG INJ IV PRN (14:00)
[2018-10-05] MEDS ORDERED: ONDANSETRON 4 MG INJ IV PRN ×2 (14:00→15:00)
[2018-10-05] MEDS ORDERED: HYDROmorphONE 1 MG/5 ML IV SYRINGE IV PRN (14:00)
[2018-10-05] MEDS ORDERED: METOCLOPRAMIDE 10 MG INJ IV PRN (14:00)
[2018-10-05] MEDS ORDERED: FENTAnyl 50 MCG/ML VIAL IV PRN (14:00)
[2018-10-05] MEDS ORDERED: MEPERIDINE 25 MG INJ IV PRN (14:00)
[2018-10-05] MEDS ORDERED: BUPIVACAINE 0.25%/EPI (SDV) 30 ML INJ ONE (14:22)
[2018-10-05] MEDS ORDERED: LIDOCAINE 2% (SDV) 5 ML INJ ONE ×2 (14:46→14:51)
[2018-10-05] MEDS ORDERED: PROPOFOL 0 ML ONE (14:46)
[2018-10-05] MEDS ORDERED: ONDANSETRON 4 MG INJ ONE (14:51)
[2018-10-05] MEDS ORDERED: CEFAZOLIN 1 GM INJ ONE (14:51)
[2018-10-05] MEDS ORDERED: PROPOFOL 20 ML ONE (14:51)
--- NOTE | 2018-10-05 14:54 | OPR ---
Date/Time of Note Date/Time of Note DATE: 10/05/18 TIME: 14:44 Operative Report Free Text/Dictation Operative report Procedure Date: October 05, 2018 Preoperative Diagnosis 1) Left abdominal wall soft tissue infection 2) left lateral breast soft tissue infection abscess Postoperative Diagnosis Same Operation/Procedure Performed Wide debridement soft tissue infection left anterior abdominal wall and left lateral breast Surgeon Matt Collins see signature line Assisted Living Manager None Anesthesia Type: general Anesthesiologist: ZO STEVENS MD Estimated Blood Loss: 0 - 10 ml's Transfusion none Specimen Debrided soft tissue left intra-abdominal wall, left lateral breast Grafts/Implants none Complications none Pt Condition Post Procedure: stable Disposition: PACU Indications Soft tissue infection left anterior abdominal wall and left lateral breast unclear etiology. Patient had been scratching from itching which she felt was secondary to food allergy and then developed soft tissue infection in both the anterior abdominal wall on the left abdomen and left lateral breast. Procedure Description patient brought to the OR , placed in supine position , general anesthesia with ETT carried out by anesthesia . The left abdomen and left breast were prepped and draped . Time out completed An elliptical incision was made surrounding the abdominal wall soft tissue necrotic wound , to healthy viable margins , this was carried down to the fascia . The area was cultured with swab and sent for panculture and sensitivity , as well as pathology . hemostasis was controlled . The wound was then packed . Similar fashion , the left breast area of infection was incised sharply and carried down to healthy tissue . there was tunneling inferiorly and medially . The length of the breast wound was 5 x 4 x 7 cm . The abdominal wall infection wound was 4 cm in length and 4 cm wide and 5 cm deep The wound s were packed with wet to dry gauze with dilute Betadine She was extubated in the operating room and brought to recovery room in stable condition . counts correct x 2 MATT COLLINS MD October 05, 2018 14:53
[2018-10-05] MEDS: HYDROmorphONE 1 MG/5 ML IV SYRINGE IV PRN ×2 (15:08→15:19)
[2018-10-05] MEDS: HYDROCODONE/APAP (5/325) TAB PO PRN (23:17)
[2018-10-06 01:55] VITALS: BP 95/50; PULSE 63; RESP 16
[2018-10-06] MEDS: VANCOMYCIN 1 GM 250 ML IVPB SCH ×2 (05:00→17:26)
[2018-10-06] MEDS: SOD CHLORIDE 0.9% 1,000 ML IV SCH ×2 (05:26→09:32)
[2018-10-06] MEDS: PIPER-TAZO 3.375 GM IV (PMX) 100 ML IVPB SCH ×3 (05:48→21:31)
[2018-10-06 07:44] VITALS: BP 127/68; PULSE 57; RESP 16
--- NOTE | 2018-10-06 09:17 | PN ---
Date/Time of Note Date/Time of Note DATE: 10/06/18 TIME: 09:17 Assessment/Plan VTE Prophylaxis Risk score (from [facility])>0 risk: 3 SCD applied (from Ns): Yes Pharmacological prophylaxis: NA/contraindicated Pharm contraindication: low risk/ambulating Lines/Catheters IV Catheter Type (from [facility]): Peripheral IV Urinary Cath still in place: No Assessment/Plan Assessment/Plan 1. Left breast abscess s/p I&D 10/05/18 - awaiting intraoperative cx results given initial cx negative - continue local wound care - General surgery consultation appreciated - ID consulted for antibiotic recommendations - Pain control 2. Left abdominal wall abscess s/p I&D - Gen surgery consultation appreciated - Continue local wound care - IV antibiotics on board 3. Disposition - Awaiting intraoperative culture results - ID consultation placed for antibiotic recommendations - continue local wound care Result Diagram: 10/06/18 0431 10/06/18 0431 Results 24hrs Laboratory Tests Test 10/05/18 12:03 10/06/18 04:31 Vancomycin Level Trough 11.3 White Blood Count 4.7 L Red Blood Count 3.88 L Hemoglobin 10.5 L Hematocrit 32.9 L Mean Corpuscular Volume 84.8 Mean Corpuscular Hemoglobin 27.1 L Mean Corpuscular Hemoglobin Concent 31.9 L Red Cell Distribution Width 13.5 Platelet Count 209 Mean Platelet Volume 9.5 Immature Granulocytes % 0.200 Neutrophils % 47.3 Lymphocytes % 40.0 Monocytes % 8.5 Eosinophils % 3.8 Basophils % 0.2 Nucleated Red Blood Cells % 0.0 Immature Granulocytes # 0.010 Neutrophils # 2.2 Lymphocytes # 1.9 Monocytes # 0.4 Eosinophils # 0.2 Basophils # 0.0 Nucleated Red Blood Cells # 0.0 Sodium Level 142 Potassium Level 4.1 Chloride Level 106 Carbon Dioxide Level 29 Anion Gap 7 Blood Urea Nitrogen 9 Creatinine 0.70 Est Glomerular Filtrat Rate mL/min > 60 Glucose Level 80 Calcium Level 8.2 L Magnesium Level 2.0 Total Bilirubin 0.4 Direct Bilirubin 0.00 Indirect Bilirubin 0.4 Aspartate Amino Transf (AST/SGOT) 39 Alanine Aminotransferase (ALT/SGPT) 29 Alkaline Phosphatase 48 Total Protein 6.3 Albumin 3.1 L Globulin 3.20 Albumin/Globulin Ratio 0.96 Subjective 24 Hr Interval Summary Free Text/Dictation Patient states she's feeling better but still with discomfort in breast and abdominal area. No acute overnight events. Exam/Review of Systems Exam Vitals Vital Signs Date Temp Pulse Resp B/P (MAP) Pulse Ox O2 O2 Flow FiO2 Time Delivery Rate 10/06/18 97.5 57 16 127/68 97 07:44 (87) 10/05/18 Room Air 16:20 10/05/18 8.0 15:08 Intake and Output 10/05/18 10/05/18 10/06/18 1515:00 23:00 07:00 IntakeIntake Total 400 ml 1790 ml 1265 ml OutputOutput Total 20 ml BalanceBalance 400 ml 1770 ml 1265 ml Exam General: no acute distress Neck: Supple Lungs: Clear to auscultation bilaterally no crackles rales or wheezing Heart: Normal S1-S2, Regular rhythm and rate. No murmur, S3, or S4 Abdomen: Soft , mild tenderness LLQ. dressing in place, protuberant , bowel sounds are present. No guarding no rebound tenderness , Extremities: Normal to inspection, no edema no cyanosis Skin: Left breast dressing, CDI. LLQ dressing CDI Neurologic: Normal mental status, speech normal, cranial nerves II through XII are intact, motor and sensory are intact, Results Results 24hrs Laboratory Tests Test 10/05/18 12:03 10/06/18 04:31 Vancomycin Level Trough 11.3 White Blood Count 4.7 L Red Blood Count 3.88 L Hemoglobin 10.5 L Hematocrit 32.9 L Mean Corpuscular Volume 84.8 Mean Corpuscular Hemoglobin 27.1 L Mean Corpuscular Hemoglobin Concent 31.9 L Red Cell Distribution Width 13.5 Platelet Count 209 Mean Platelet Volume 9.5 Immature Granulocytes % 0.200 Neutrophils % 47.3 Lymphocytes % 40.0 Monocytes % 8.5 Eosinophils % 3.8 Basophils % 0.2 Nucleated Red Blood Cells % 0.0 Immature Granulocytes # 0.010 Neutrophils # 2.2 Lymphocytes # 1.9 Monocytes # 0.4 Eosinophils # 0.2 Basophils # 0.0 Nucleated Red Blood Cells # 0.0 Sodium Level 142 Potassium Level 4.1 Chloride Level 106 Carbon Dioxide Level 29 Anion Gap 7 Blood Urea Nitrogen 9 Creatinine 0.70 Est Glomerular Filtrat Rate mL/min > 60 Glucose Level 80 Calcium Level 8.2 L Magnesium Level 2.0 Total Bilirubin 0.4 Direct Bilirubin 0.00 Indirect Bilirubin 0.4 Aspartate Amino Transf (AST/SGOT) 39 Alanine Aminotransferase (ALT/SGPT) 29 Alkaline Phosphatase 48 Total Protein 6.3 Albumin 3.1 L Globulin 3.20 Albumin/Globulin Ratio 0.96 Medications Medication Current Medications Sodium Chloride 1,000 ml @ 80 mls/hr [id number] IV Last administered on 10/05/18at 11:29; Admin Dose 80 MLS/HR; Start 10/04/18 at 02:05 IV Flush (NS 3 ml) 3 ml PER PROTOCOL IV ; Start 10/04/18 at 02:30 Ondansetron HCl (Zofran Inj) 4 mg Q6H PRN IV NAUSEA/VOMITING; Start 10/04/18 at 02:30 Acetaminophen (Tylenol Tab) 650 mg Q6H PRN PO .PAIN 1-3 OR TEMP; Start 10/04/18 at 02:30 Docusate Sodium (Colace) 100 mg Q12H PRN PO .CONSTIPATION; Start 10/04/18 at 02:30 Bisacodyl (Dulcolax) 5 mg DAILY PRN PO .CONSTIPATION; Start 10/04/18 at 02:30 Vancomycin HCl (Vanco Iv Per Pharmacy) VANCOMYCIN PER PHARMACY PER PROTOCOL XX ; Start 10/04/18 at 02:30 Piperacillin Sod/ Tazobactam Sod 100 ml @ 200 mls/hr Q6 IVPB Last administered on 10/06/18at 05:48; Admin Dose 200 MLS/HR; Start 10/04/18 at 06:00 Hydromorphone HCl (Dilaudid) 0.5 mg Q6H PRN IV PAIN LEVEL 6-10; Start 10/05/18 at 15:00 Acetaminophen/ Hydrocodone Bitart ([place] (5/325)) 1 tab Q6H PRN PO PAIN LEVEL 6-10 Last administered on 10/05/18at 23:17; Admin Dose 1 TAB; Start 10/05/18 at 15:00 Ondansetron HCl (Zofran Inj) 4 mg Q6H PRN IV NAUSEA AND/OR VOMITING; Start 10/05/18 at 15:00 Acetaminophen/ Hydrocodone Bitart ([place] (5/325)) 1 tab Q6H PRN PO .MOD PAIN 4- 6; Start 10/05/18 at 15:30 Vancomycin HCl 250 ml @ 125 mls/hr Q12H IVPB Last administered on 10/06/18at 05:00; Admin Dose 125 MLS/HR; Start 10/06/18 at 05:00 CHARLINE OCHOA MD October 06, 2018 09:17
[2018-10-06] MEDS: HYDROCODONE/APAP (5/325) TAB PO PRN ×2 (09:26→22:00)
--- NOTE | 2018-10-06 15:36 | CONS ---
DATE OF ADMISSION: 10/04/2018 DATE OF CONSULTATION: 10/06/2018 TYPE OF CONSULTATION: Infectious disease. REASON FOR CONSULTATION: Antibiotic management. HISTORY OF PRESENT ILLNESS: Jaymie Payton is a 62-year-old female who was sent in by her PCP with multip le abscesses. The patient has multiple large abscesses specifically over her left breast as well as lower abdominal area. The patient was brought in with family. She has been scratching at the lesion s for at least a week, but she did not want to see doctor. She has no history of IV drug abuse. The re are no relieving factors that have exacerbated the lesions. On admission, white count was 6.1, H and H of 12.4 and 38.7, platelet count 250,000. BUN and creatinine is 10/0.57, glucose of 103 and 50 % neutrophils with the white count is 6.1. The patient was started on vancomycin and Zosyn, so she w as admitted with abscess and cellulitis. Blood cultures are negative. Urine showed mixed gram-posit kvng organisms. Chest x-ray: No evidence for acute cardiopulmonary disease. Breast ultrasound notes 2.7 x 0.8 heterogeneous subcutaneous lesions at the 3 o'clock position of the left breast. This may represent a complex fluid collection or abscess. On further hospital course, the patient was seen b cherelle Collins, who noted abdominal wall soft tissue infection in left breast, inflammation, soft tissu e infection possibly secondary to trauma from pruritus. This seems less likely to be amenable to per cutaneous drainage and appears to require surgical debridement. The patient has no significant past medical history. Denies any illicit drug use. CT scan showed 2.5 x 3 cm lesion in the left anterior abdominal wall with some stranding consistent with soft tissue infection. The left breast abscess i s I and D'ed on 10/05/2018. We are awaiting intraoperative cultures given initial culture negative. Continue local care. ID was consulted for antibiotic recommendations. Left abdominal wall abscess, status post I and D. General surgery consultation is appreciated. White count today is 4.7. PHYSICAL EXAMINATION: GENERAL: The patient is alert, responsive, in no acute distress. VITAL SIGNS: Stable. She is afebrile. SKIN: Without generalized rash. HEENT: Within normal limits. NECK: Supple. LYMPH NODES: None palpable. CHEST: Decreased breath sounds at the bases. HEART: Without murmur or gallop. ABDOMEN: Soft, slightly tender in left lower quadrant, dressings in place. Bowel sounds are present . EXTREMITIES: Without cyanosis, clubbing or edema. SKIN: Left breast is also dressed. There is no leakage and left lower quadrant dressing is also dorinda an. RECTAL AND GENITAL: Deferred. NEUROLOGIC: No focal neurological abnormality. IMPRESSION AND PLAN: The patient presents now with multiple abscesses which have been drained. The wounds have been cultured and are pending. The patient is currently on vancomycin and Zosyn. We sena l continue current therapy. I will dictate my findings to Dr. Collins and to the hospitalist. Dictated By: JESUS JEAN MD CONCEPCIÓN/NTS Conf#: [id number] DID#: [id number] CC: CHARLINE OCHOA MD; MATT COLLINS MD;*End*
[2018-10-06] MEDS: HYDROmorphONE 0.5 MG/0.5 ML SYG IV PRN (15:53)
[2018-10-06 19:38] VITALS: BP 137/65; PULSE 63; RESP 16
[2018-10-07 01:37] VITALS: BP 123/64; PULSE 60; RESP 16
[2018-10-07] MEDS: PIPER-TAZO 3.375 GM IV (PMX) 100 ML IVPB SCH ×3 (01:53→12:34)
[2018-10-07] MEDS: SOD CHLORIDE 0.9% 1,000 ML IV SCH (01:53)
[2018-10-07] MEDS: VANCOMYCIN 1 GM 250 ML IVPB SCH (05:40)
[2018-10-07 07:42] VITALS: BP 138/63; PULSE 60; RESP 16
[2018-10-07] MEDS: HYDROmorphONE 0.5 MG/0.5 ML SYG IV PRN ×2 (10:52→17:20)
[2018-10-07] MEDS ORDERED: DIPHENHYDRAMINE 25 MG CAP PO PRN (11:30)
--- NOTE | 2018-10-07 11:35 | PN ---
Date/Time of Note Date/Time of Note DATE: 10/07/18 TIME: 11:27 Assessment/Plan VTE Prophylaxis Risk score (from Ns)>0 risk: 1 SCD applied (from Ns): Yes Pharmacological prophylaxis: NA/contraindicated Pharm contraindication: low risk/ambulating Lines/Catheters IV Catheter Type (from Nrsg): Peripheral IV Urinary Cath still in place: No Assessment/Plan Assessment/Plan 1. Left breast abscess s/p I&D 10/05/18 - ID on board and appreciate recommendations - continue local wound care - cx results noted - CM on board for assistance with insurance given patient is self pay and will need wound care to abscess areas after discharge - General surgery consultation appreciated - Pain control 2. Left abdominal wall abscess s/p I&D - Gen surgery consultation appreciated - Continue local wound care - IV antibiotics on board 3. Erythema of groin - will start Nystatin to area - claritin started and PRN Benadryl 4. Disposition - Continue local wound care and antibiotics per ID recommendations. - Will need to address insurance status given patient will need continued wound care to area Result Diagram: 10/07/18 0443 10/07/18 0443 Results 24hrs Laboratory Tests Test 10/07/18 04:43 White Blood Count 4.5 L Red Blood Count 4.07 L Hemoglobin 11.1 L Hematocrit 34.7 L Mean Corpuscular Volume 85.3 Mean Corpuscular Hemoglobin 27.3 L Mean Corpuscular Hemoglobin Concent 32.0 Red Cell Distribution Width 13.8 Platelet Count 225 Mean Platelet Volume 9.7 Immature Granulocytes % 0.200 Neutrophils % 47.7 Lymphocytes % 40.8 Monocytes % 7.8 Eosinophils % 3.3 Basophils % 0.2 Nucleated Red Blood Cells % 0.0 Immature Granulocytes # 0.010 Neutrophils # 2.2 Lymphocytes # 1.8 Monocytes # 0.4 Eosinophils # 0.2 Basophils # 0.0 Nucleated Red Blood Cells # 0.0 Sodium Level 142 Potassium Level 3.9 Chloride Level 107 Carbon Dioxide Level 31 Anion Gap 4 L Blood Urea Nitrogen 8 Creatinine 0.67 Est Glomerular Filtrat Rate mL/min > 60 Glucose Level 96 Calcium Level 8.4 Magnesium Level 2.2 Total Bilirubin 0.3 Direct Bilirubin 0.00 Indirect Bilirubin 0.3 Aspartate Amino Transf (AST/SGOT) 29 Alanine Aminotransferase (ALT/SGPT) 19 Alkaline Phosphatase 48 Total Protein 6.1 Albumin 3.3 Globulin 2.80 Albumin/Globulin Ratio 1.17 Subjective 24 Hr Interval Summary Free Text/Dictation Patient states shes feeling better but still with diffuse itching in groin and back area. Admits to sleeping with animals and unsure if allergic. Discussed following up with PCP for referral to nurse orthopedic. Exam/Review of Systems Exam Vitals Vital Signs Date Temp Pulse Resp B/P (MAP) Pulse Ox O2 O2 Flow FiO2 Time Delivery Rate 10/07/18 98.2 60 16 138/63 97 07:42 (88) 10/05/18 Room Air 16:20 10/05/18 8.0 15:08 Intake and Output 10/06/18 10/06/18 10/07/18 1515:00 23:00 07:00 IntakeIntake Total 1485 ml 1410 ml 660 ml BalanceBalance 1485 ml 1410 ml 660 ml Exam General: no acute distress. answering questions appropriately Neck: Supple Lungs: Clear to auscultation bilaterally no crackles rales or wheezing Heart: Normal S1-S2, Regular rhythm and rate. No murmur, S3, or S4 Abdomen: Soft , nontender, dressing in place, protuberant , bowel sounds are present. No guarding no rebound tenderness Extremities: Normal to inspection, no edema no cyanosis Skin: Left breast dressing, CDI. LLQ dressing CDI. erythema groin bilaterally Results Results 24hrs Laboratory Tests Test 10/07/18 04:43 White Blood Count 4.5 L Red Blood Count 4.07 L Hemoglobin 11.1 L Hematocrit 34.7 L Mean Corpuscular Volume 85.3 Mean Corpuscular Hemoglobin 27.3 L Mean Corpuscular Hemoglobin Concent 32.0 Red Cell Distribution Width 13.8 Platelet Count 225 Mean Platelet Volume 9.7 Immature Granulocytes % 0.200 Neutrophils % 47.7 Lymphocytes % 40.8 Monocytes % 7.8 Eosinophils % 3.3 Basophils % 0.2 Nucleated Red Blood Cells % 0.0 Immature Granulocytes # 0.010 Neutrophils # 2.2 Lymphocytes # 1.8 Monocytes # 0.4 Eosinophils # 0.2 Basophils # 0.0 Nucleated Red Blood Cells # 0.0 Sodium Level 142 Potassium Level 3.9 Chloride Level 107 Carbon Dioxide Level 31 Anion Gap 4 L Blood Urea Nitrogen 8 Creatinine 0.67 Est Glomerular Filtrat Rate mL/min > 60 Glucose Level 96 Calcium Level 8.4 Magnesium Level 2.2 Total Bilirubin 0.3 Direct Bilirubin 0.00 Indirect Bilirubin 0.3 Aspartate Amino Transf (AST/SGOT) 29 Alanine Aminotransferase (ALT/SGPT) 19 Alkaline Phosphatase 48 Total Protein 6.1 Albumin 3.3 Globulin 2.80 Albumin/Globulin Ratio 1.17 Medications Medication Current Medications IV Flush (NS 3 ml) 3 ml PER PROTOCOL IV ; Start 10/04/18 at 02:30 Ondansetron HCl (Zofran Inj) 4 mg Q6H PRN IV NAUSEA/VOMITING; Start 10/04/18 at 02:30 Acetaminophen (Tylenol Tab) 650 mg Q6H PRN PO .PAIN 1-3 OR TEMP; Start 10/04/18 at 02:30 Docusate Sodium (Colace) 100 mg Q12H PRN PO .CONSTIPATION; Start 10/04/18 at 02:30 Bisacodyl (Dulcolax) 5 mg DAILY PRN PO .CONSTIPATION; Start 10/04/18 at 02:30 Vancomycin HCl (Vanco Iv Per Pharmacy) VANCOMYCIN PER PHARMACY PER PROTOCOL XX ; Start 10/04/18 at 02:30 Hydromorphone HCl (Dilaudid) 0.5 mg Q6H PRN IV PAIN LEVEL 6-10 Last administered on 10/07/18at 10:52; Admin Dose 0.5 MG; Start 10/05/18 at 15:00 Acetaminophen/ Hydrocodone Bitart ([place] (5/325)) 1 tab Q6H PRN PO PAIN LEVEL 6-10 Last administered on 10/06/18at 22:00; Admin Dose 1 TAB; Start 10/05/18 at 15:00 Ondansetron HCl (Zofran Inj) 4 mg Q6H PRN IV NAUSEA AND/OR VOMITING; Start 10/05/18 at 15:00 Acetaminophen/ Hydrocodone Bitart ([place] (5/325)) 1 tab Q6H PRN PO .MOD PAIN 4- 6; Start 10/05/18 at 15:30 Vancomycin HCl 250 ml @ 125 mls/hr Q12H IVPB Last administered on 10/07/18at 05 :40; Admin Dose 125 MLS/HR; Start 10/06/18 at 05:00 Piperacillin Sod/ Tazobactam Sod 100 ml @ 200 mls/hr Q6 IVPB Last administered on 10/07/18at 05:05; Admin Dose 200 MLS/HR; Start 10/06/18 at 21:30 Diphenhydramine HCl (Benadryl) 25 mg Q6H PRN PO ITCHING; Start 10/07/18 at 11:30 Loratadine (Claritin) 10 mg DAILY PO ; Start 10/07/18 at 11:30 CHARLINE OCHOA MD October 07, 2018 11:35
[2018-10-07] MEDS: LORATADINE 10 MG TAB PO SCH (12:34)
[2018-10-07] MEDS: HYDROCODONE/APAP (5/325) TAB PO PRN (13:01)
--- NOTE | 2018-10-07 13:43 | CONS ---
Assessment/Plan Assessment/Plan Hospital Course (Demo Recall) Patient is alert eating lunch looks comfortable no fevers overnight WBC today 4.5 no shift no bands BUN 8 creatinine 0.67 Intraoperative culture growing staph aureus left breast drainage culture grew oxacillin sensitive staph aureus Antimicrobials: Jennifer Weems Physical examination: Well-developed elderly woman who is alert in no distress head atraumatic normocephalic neck is supple chest rise symmetrical breath sounds clear heart: S1-S2 abdomen soft bowel sounds present. Assessment: 1. Left abdominal wall and left lateral breast soft tissue infection with abscess, status post I&D Plan: Patient is stable postoperatively, will change antibiotics to IV clindamycin Consultation Date/Type/Reason Admit Date/Time October 04, 2018 at 23:07 Initial Consult Date 10/05/18 Type of Consult id Requesting Provider: ROGERIO NUNN Date/Time of Note DATE: 10/07/18 TIME: 13:42 Exam/Review of Systems Exam Vitals Vital Signs Date Temp Pulse Resp B/P (MAP) Pulse Ox O2 O2 Flow FiO2 Time Delivery Rate 10/07/18 98.2 60 16 138/63 97 07:42 (88) 10/05/18 Room Air 16:20 10/05/18 8.0 15:08 Intake and Output 10/06/18 10/06/18 10/07/18 1515:00 23:00 07:00 IntakeIntake Total 1485 ml 1410 ml 660 ml BalanceBalance 1485 ml 1410 ml 660 ml Results Result Diagram: 10/07/18 0443 10/07/18 0443 Results 24hrs Laboratory Tests Test 10/07/18 04:43 White Blood Count 4.5 L Red Blood Count 4.07 L Hemoglobin 11.1 L Hematocrit 34.7 L Mean Corpuscular Volume 85.3 Mean Corpuscular Hemoglobin 27.3 L Mean Corpuscular Hemoglobin Concent 32.0 Red Cell Distribution Width 13.8 Platelet Count 225 Mean Platelet Volume 9.7 Immature Granulocytes % 0.200 Neutrophils % 47.7 Lymphocytes % 40.8 Monocytes % 7.8 Eosinophils % 3.3 Basophils % 0.2 Nucleated Red Blood Cells % 0.0 Immature Granulocytes # 0.010 Neutrophils # 2.2 Lymphocytes # 1.8 Monocytes # 0.4 Eosinophils # 0.2 Basophils # 0.0 Nucleated Red Blood Cells # 0.0 Sodium Level 142 Potassium Level 3.9 Chloride Level 107 Carbon Dioxide Level 31 Anion Gap 4 L Blood Urea Nitrogen 8 Creatinine 0.67 Est Glomerular Filtrat Rate mL/min > 60 Glucose Level 96 Calcium Level 8.4 Magnesium Level 2.2 Total Bilirubin 0.3 Direct Bilirubin 0.00 Indirect Bilirubin 0.3 Aspartate Amino Transf (AST/SGOT) 29 Alanine Aminotransferase (ALT/SGPT) 19 Alkaline Phosphatase 48 Total Protein 6.1 Albumin 3.3 Globulin 2.80 Albumin/Globulin Ratio 1.17 Medications Medication Current Medications IV Flush (NS 3 ml) 3 ml PER PROTOCOL IV ; Start 10/04/18 at 02:30 Ondansetron HCl (Zofran Inj) 4 mg Q6H PRN IV NAUSEA/VOMITING; Start 10/04/18 at 02:30 Acetaminophen (Tylenol Tab) 650 mg Q6H PRN PO .PAIN 1-3 OR TEMP; Start 10/04/18 at 02:30 Docusate Sodium (Colace) 100 mg Q12H PRN PO .CONSTIPATION; Start 10/04/18 at 02:30 Bisacodyl (Dulcolax) 5 mg DAILY PRN PO .CONSTIPATION; Start 10/04/18 at 02:30 Vancomycin HCl (Vanco Iv Per Pharmacy) VANCOMYCIN PER PHARMACY PER PROTOCOL XX ; Start 10/04/18 at 02:30 Hydromorphone HCl (Dilaudid) 0.5 mg Q6H PRN IV PAIN LEVEL 6-10 Last administered on 10/07/18at 10:52; Admin Dose 0.5 MG; Start 10/05/18 at 15:00 Acetaminophen/ Hydrocodone Bitart ([place] (5/325)) 1 tab Q6H PRN PO PAIN LEVEL 6-10 Last administered on 10/07/18at 13:01; Admin Dose 1 TAB; Start 10/05/18 at 15:00 Ondansetron HCl (Zofran Inj) 4 mg Q6H PRN IV NAUSEA AND/OR VOMITING; Start 10/05/18 at 15:00 Acetaminophen/ Hydrocodone Bitart ([place] (5/325)) 1 tab Q6H PRN PO .MOD PAIN 4- 6; Start 10/05/18 at 15:30 Vancomycin HCl 250 ml @ 125 mls/hr Q12H IVPB Last administered on 10/07/18at 05:40; Admin Dose 125 MLS/HR; Start 10/06/18 at 05:00 Piperacillin Sod/ Tazobactam Sod 100 ml @ 200 mls/hr Q6 IVPB Last administered on 10/07/18at 12:34; Admin Dose 200 MLS/HR; Start 10/06/18 at 21:30 Diphenhydramine HCl (Benadryl) 25 mg Q6H PRN PO ITCHING; Start 10/07/18 at 11:30 Loratadine (Claritin) 10 mg DAILY PO Last administered on 10/07/18at 12:34; Admi n Dose 10 MG; Start 10/07/18 at 11:30 RAUL DIANA NP October 07, 2018 13:43
[2018-10-07] MEDS: CLINDAMYCIN 900 MG/D5W (PMX) 50 ML IVPB SCH ×2 (14:35→21:51)
[2018-10-07 14:57] VITALS: BP 133/67; PULSE 67; RESP 17
[2018-10-07 20:00] VITALS: BP 130/68; PULSE 71; RESP 16
[2018-10-07] MEDS: NYSTATIN 15 GM CR TOP SCH (21:51)
[2018-10-08 02:00] VITALS: BP 121/73; PULSE 70; RESP 18
[2018-10-08] MEDS: CLINDAMYCIN 900 MG/D5W (PMX) 50 ML IVPB SCH ×3 (06:14→21:15)
[2018-10-08 07:29] VITALS: BP 117/75; PULSE 65; RESP 17
[2018-10-08] MEDS ORDERED: CYCLOPENTOLATE/PHENYLEPH 2 ML OPH OPER SCH (08:00)
[2018-10-08] MEDS ORDERED: MOXIFLOXACIN 0.5% 3 ML OPH OPER SCH (08:00)
[2018-10-08] MEDS ORDERED: SOD CHLORIDE 0.9% 1,000 ML IV SCH (08:00)
[2018-10-08] MEDS ORDERED: DICLOFENAC 0.1% 2.5 ML OPH OPER SCH (08:00)
[2018-10-08] MEDS ORDERED: TROPICAMIDE 1% 15 ML OPH OPER SCH (08:00)
[2018-10-08] MEDS: HYDROmorphONE 0.5 MG/0.5 ML SYG IV PRN ×2 (08:31→16:44)
[2018-10-08] MEDS: LORATADINE 10 MG TAB PO SCH (08:31)
[2018-10-08] MEDS: NYSTATIN 15 GM CR TOP SCH ×3 (08:34→21:15)
[2018-10-08 13:59] VITALS: BP 130/69; PULSE 87; RESP 17
--- NOTE | 2018-10-08 15:59 | CONS ---
Assessment/Plan Assessment/Plan Hospital Course (Demo Recall) No acute events patient is awake looks comfortable complaining of pain no fevers. Pathology report revealed no evidence of malignancy Antimicrobials: Clindamycin Intraoperative culture growing staph aureus left breast drainage culture grew oxacillin sensitive staph aureus Physical examination: Well-developed elderly woman who is alert in no distress head atraumatic normocephalic neck is supple chest rise symmetrical breath sounds clear heart: S1-S2 abdomen soft bowel sounds present. Assessment: 1. Left abdominal wall and left lateral breast soft tissue infection with abscess, status post I&D Plan: Patient is stable continue present care and antibiotics, await for clinical improvement Consultation Date/Type/Reason Admit Date/Time October 04, 2018 at 23:07 Initial Consult Date 10/05/18 Type of Consult id Requesting Provider: ROGERIO NUNN Date/Time of Note DATE: 10/08/18 TIME: 15:59 Exam/Review of Systems Exam Vitals Vital Signs Date Temp Pulse Resp B/P (MAP) Pulse Ox O2 O2 Flow FiO2 Time Delivery Rate 10/08/18 98.5 87 17 130/69 95 Room Air 13:59 (89) 10/05/18 8.0 15:08 Intake and Output 10/07/18 10/07/18 10/08/18 1515:00 23:00 07:00 IntakeIntake Total 1350 ml 620 ml 120 ml BalanceBalance 1350 ml 620 ml 120 ml Results Result Diagram: 10/08/18 0451 10/08/18 0451 Results 24hrs Laboratory Tests Test 10/08/18 04:51 White Blood Count 4.5 L Red Blood Count 4.30 Hemoglobin 11.5 L Hematocrit 36.2 L Mean Corpuscular Volume 84.2 Mean Corpuscular Hemoglobin 26.7 L Mean Corpuscular Hemoglobin Concent 31.8 L Red Cell Distribution Width 14.0 Platelet Count 235 Mean Platelet Volume 9.8 Immature Granulocytes % 0.200 Neutrophils % 53.7 Lymphocytes % 33.8 Monocytes % 7.6 Eosinophils % 4.7 Basophils % 0.0 Nucleated Red Blood Cells % 0.0 Immature Granulocytes # 0.010 Neutrophils # 2.4 Lymphocytes # 1.5 Monocytes # 0.3 Eosinophils # 0.2 Basophils # 0.0 Nucleated Red Blood Cells # 0.0 Sodium Level 142 Potassium Level 4.2 Chloride Level 106 Carbon Dioxide Level 31 Anion Gap 5 Blood Urea Nitrogen 11 Creatinine 0.67 Glucose Level 110 Calcium Level 8.8 Phosphorus Level 5.1 H Magnesium Level 2.1 Albumin 3.3 Medications Medication Current Medications IV Flush (NS 3 ml) 3 ml PER PROTOCOL IV ; Start 10/04/18 at 02:30 Acetaminophen (Tylenol Tab) 650 mg Q6H PRN PO .PAIN 1-3 OR TEMP; Start 10/04/18 at 02:30 Docusate Sodium (Colace) 100 mg Q12H PRN PO .CONSTIPATION; Start 10/04/18 at 02:30 Bisacodyl (Dulcolax) 5 mg DAILY PRN PO .CONSTIPATION; Start 10/04/18 at 02:30 Hydromorphone HCl (Dilaudid) 0.5 mg Q6H PRN IV PAIN LEVEL 6-10 Last administered on 10/08/18 08:31; Admin Dose 0.5 MG; Start 10/05/18 at 15:00 Acetaminophen/ Hydrocodone Bitart ([place] (5/325)) 1 tab Q6H PRN PO PAIN LEVEL 6-10 Last administered on 10/07/18at 13:01; Admin Dose 1 TAB; Start 10/05/18 at 15:00 Ondansetron HCl (Zofran Inj) 4 mg Q6H PRN IV NAUSEA AND/OR VOMITING; Start 10/05/18 at 15:00 Acetaminophen/ Hydrocodone Bitart ([place] (5/325)) 1 tab Q6H PRN PO .MOD PAIN 4- 6; Start 10/05/18 at 15:30 Diphenhydramine HCl (Benadryl) 25 mg Q6H PRN PO ITCHING; Start 10/07/18 at 11:30 Loratadine (Claritin) 10 mg DAILY PO Last administered on 10/08/18 08:31; Admin Dose 10 MG; Start 10/07/18 at 11:30 Clindamycin HCl/ Dextrose 50 ml @ 50 mls/hr Q8 IVPB Last administered on 10/08/18at 13:25; Admin Dose 50 MLS/HR; Start 10/07/18 at 14:00 Nystatin (Nystatin Cr) 1 applic TID TOP Last administered on 10/08/18at 13:14; A dmin Dose 1 APPLIC; Start 10/07/18 at 21:00 RAUL DIANA NP October 08, 2018 15:59
--- NOTE | 2018-10-08 16:17 | PN ---
Date/Time of Note Date/Time of Note DATE: 10/08/18 TIME: 16:17 Objective Vitals Vital Signs Date Temp Pulse Resp B/P (MAP) Pulse Ox O2 O2 Flow FiO2 Time Delivery Rate 10/08/18 98.5 87 17 130/69 95 Room Air 13:59 (89) 10/05/18 8.0 15:08 Intake and Output 10/07/18 10/07/18 10/08/18 1515:00 23:00 07:00 IntakeIntake Total 1350 ml 620 ml 120 ml BalanceBalance 1350 ml 620 ml 120 ml Results Result Diagram: 10/08/18 0451 10/08/18 0451 Medications Medications Current Medications IV Flush (NS 3 ml) 3 ml PER PROTOCOL IV ; Start 10/04/18 at 02:30 Acetaminophen (Tylenol Tab) 650 mg Q6H PRN PO .PAIN 1-3 OR TEMP; Start 10/04/18 at 02:30 Docusate Sodium (Colace) 100 mg Q12H PRN PO .CONSTIPATION; Start 10/04/18 at 02:30 Bisacodyl (Dulcolax) 5 mg DAILY PRN PO .CONSTIPATION; Start 10/04/18 at 02:30 Hydromorphone HCl (Dilaudid) 0.5 mg Q6H PRN IV PAIN LEVEL 6-10 Last administered on 10/08/18at 08:31; Admin Dose 0.5 MG; Start 10/05/18 at 15:00 Acetaminophen/ Hydrocodone Bitart ([place] (5/325)) 1 tab Q6H PRN PO PAIN LEVEL 6-10 Last administered on 10/07/18at 13:01; Admin Dose 1 TAB; Start 10/05/18 at 15:00 Ondansetron HCl (Zofran Inj) 4 mg Q6H PRN IV NAUSEA AND/OR VOMITING; Start 10/05/18 at 15:00 Acetaminophen/ Hydrocodone Bitart ([place] (5/325)) 1 tab Q6H PRN PO .MOD PAIN 4- 6; Start 10/05/18 at 15:30 Diphenhydramine HCl (Benadryl) 25 mg Q6H PRN PO ITCHING; Start 10/07/18 at 11:30 Loratadine (Claritin) 10 mg DAILY PO Last administered on 10/08/18at 08:31; Admin Dose 10 MG; Start 10/07/18 at 11:30 Clindamycin HCl/ Dextrose 50 ml @ 50 mls/hr Q8 IVPB Last administered on 10/08/18at 13:25; Admin Dose 50 MLS/HR; Start 10/07/18 at 14:00 Nystatin (Nystatin Cr) 1 applic TID TOP Last administered on 10/08/18at 13:14; Admin Dose 1 APPLIC; Start 10/07/18 at 21:00 VTE Prophylaxis Risk score [place]from [facility] [place] risk: 1 SCD applied (from [facility] [place] Yes Lines/Catheters IV Catheter Type: Irene in Place: No Assessment/Plan Hospital Course Subjective Patient doing well, only complaint is surgical site pain Objective Physical exam General: Patient is laying in bed and answers questions appropriately Mentation: Patient is alert and oriented 4, Head: Normocephalic atraumatic Eyes: EOMI, pupils reactive to light Neck: Supple, nontender, midline Respiratory: Clear to auscultation bilaterally Cardiovascular: regular rate, no obvious murmurs Gastrointestinal: non-tender to palpation, bowel sounds heard. Neurological: Moves all extremities spontaneously Skin: Left breast and abdominal area bandaged, CDI Assessment/Plan 1. Left breast abscess s/p I&D 10/05/18 - ID on board and appreciate recommendations - continue local wound care - cx results noted - CM on board for assistance with insurance given patient is self pay and will need wound care to abscess areas after discharge - General surgery consultation appreciated - Pain control 2. Left abdominal wall abscess s/p I&D - Gen surgery consultation appreciated - Continue local wound care - IV antibiotics on board 3. Erythema of groin - will cont Nystatin to area - claritin started and PRN Benadryl 4. Disposition - Continue local wound care and antibiotics per ID recommendations. - Will need to address insurance status given patient will need continued wound care to area CLEMENTE DOMINGUEZ October 08, 2018 16:17
[2018-10-08 19:32] VITALS: BP 132/64; PULSE 67; RESP 18
[2018-10-09 01:25] VITALS: BP 135/73; PULSE 68; RESP 18
[2018-10-09] MEDS: CLINDAMYCIN 900 MG/D5W (PMX) 50 ML IVPB SCH ×3 (05:56→21:15)
[2018-10-09] MEDS: HYDROCODONE/APAP (5/325) TAB PO PRN (06:04)
[2018-10-09 07:26] VITALS: BP 127/68; PULSE 66; RESP 16
[2018-10-09] MEDS: NYSTATIN 15 GM CR TOP SCH ×3 (10:16→21:15)
[2018-10-09] MEDS: LORATADINE 10 MG TAB PO SCH (10:16)
[2018-10-09 14:10] VITALS: BP 122/72; PULSE 72; RESP 16
--- NOTE | 2018-10-09 14:11 | CONS ---
Assessment/Plan Assessment/Plan Hospital Course (Demo Recall) Alert, feels better, no fevers Antimicrobials: Clindamycin Intraoperative culture growing staph aureus left breast drainage culture grew oxacillin sensitive staph aureus Physical examination: Well-developed elderly woman who is alert in no distress head atraumatic normocephalic neck is supple chest rise symmetrical breath sounds clear heart: S1-S2 abdomen soft bowel sounds present. Assessment: 1. Left abdominal wall and left lateral breast soft tissue infection with abscess, status post I&D Plan: Patient is stable, continue present care and antibiotics, await for clinical improvement Consultation Date/Type/Reason Admit Date/Time October 04, 2018 at 23:07 Initial Consult Date 10/05/18 Type of Consult id Requesting Provider: ROGERIO NUNN Date/Time of Note DATE: 10/09/18 TIME: 14:11 Exam/Review of Systems Exam Vitals Vital Signs Date Temp Pulse Resp B/P (MAP) Pulse Ox O2 O2 Flow FiO2 Time Delivery Rate 10/09/18 98.8 66 16 127/68 96 07:26 (87) 10/08/18 Room Air 13:59 10/05/18 8.0 15:08 Intake and Output 10/08/18 10/08/18 10/09/18 1515:00 23:00 07:00 IntakeIntake Total 340 ml 530 ml 50 ml BalanceBalance 340 ml 530 ml 50 ml Results Result Diagram: 10/09/18 0443 10/09/18 0443 Results 24hrs Laboratory Tests Test 10/09/18 04:43 White Blood Count 4.6 L Red Blood Count 4.38 Hemoglobin 11.7 L Hematocrit 36.7 L Mean Corpuscular Volume 83.8 Mean Corpuscular Hemoglobin 26.7 L Mean Corpuscular Hemoglobin Concent 31.9 L Red Cell Distribution Width 14.0 Platelet Count 243 Mean Platelet Volume 10.0 Immature Granulocytes % 0.200 Neutrophils % 46.2 Lymphocytes % 39.3 Monocytes % 8.6 Eosinophils % 5.5 Basophils % 0.2 Nucleated Red Blood Cells % 0.0 Immature Granulocytes # 0.010 Neutrophils # 2.1 Lymphocytes # 1.8 Monocytes # 0.4 Eosinophils # 0.3 Basophils # 0.0 Nucleated Red Blood Cells # 0.0 Sodium Level 140 Potassium Level 4.2 Chloride Level 105 Carbon Dioxide Level 31 Anion Gap 4 L Blood Urea Nitrogen 10 Creatinine 0.61 Est Glomerular Filtrat Rate mL/min > 60 Glucose Level 104 Calcium Level 9.4 Phosphorus Level 5.2 H Magnesium Level 2.2 Medications Medication Current Medications IV Flush (NS 3 ml) 3 ml PER PROTOCOL IV ; Start 10/04/18 at 02:30 Acetaminophen (Tylenol Tab) 650 mg Q6H PRN PO .PAIN 1-3 OR TEMP; Start 10/04/18 at 02:30 Docusate Sodium (Colace) 100 mg Q12H PRN PO .CONSTIPATION; Start 10/04/18 at 02:30 Bisacodyl (Dulcolax) 5 mg DAILY PRN PO .CONSTIPATION; Start 10/04/18 at 02:30 Hydromorphone HCl (Dilaudid) 0.5 mg Q6H PRN IV PAIN LEVEL 6-10 Last administer ed on 10/08/18at 16:44; Admin Dose 0.5 MG; Start 10/05/18 at 15:00 Acetaminophen/ Hydrocodone Bitart ([place] (5/325)) 1 tab Q6H PRN PO PAIN LEVEL 6-10 Last administered on 10/09/18 06:04; Admin Dose 1 TAB; Start 10/05/18 at 15:00 Ondansetron HCl (Zofran Inj) 4 mg Q6H PRN IV NAUSEA AND/OR VOMITING; Start 10/05/18 at 15:00 Acetaminophen/ Hydrocodone Bitart ([place] (5/325)) 1 tab Q6H PRN PO .MOD PAIN 4- 6; Start 10/05/18 at 15:30 Diphenhydramine HCl (Benadryl) 25 mg Q6H PRN PO ITCHING; Start 10/07/18 at 11:30 Loratadine (Claritin) 10 mg DAILY PO Last administered on 10/09/18 10:16; Admin Dose 10 MG; Start 10/07/18 at 11:30 Clindamycin HCl/ Dextrose 50 ml @ 50 mls/hr Q8 IVPB Last administered on 10/09/18 13:31; Admin Dose 50 MLS/HR; Start 10/07/18 at 14:00 Nystatin (Nystatin Cr) 1 applic TID TOP Last administered on 10/09/18 13:31; Admin Dose 1 APPLIC; Start 10/07/18 at 21:00 RAUL DIANA NP October 09, 2018 14:11
--- NOTE | 2018-10-09 14:53 | PN ---
Date/Time of Note Date/Time of Note DATE: 10/09/18 TIME: 14:53 Objective Vitals Vital Signs Date Temp Pulse Resp B/P (MAP) Pulse Ox O2 O2 Flow FiO2 Time Delivery Rate 10/09/18 97.6 72 16 122/72 96 14:10 (89) 10/08/18 Room Air 13:59 10/05/18 8.0 15:08 Intake and Output 10/08/18 10/08/18 10/09/18 1515:00 23:00 07:00 IntakeIntake Total 340 ml 530 ml 50 ml BalanceBalance 340 ml 530 ml 50 ml Results Result Diagram: 10/09/18 0443 10/09/18 0443 Medications Medications Current Medications IV Flush (NS 3 ml) 3 ml PER PROTOCOL IV ; Start 10/04/18 at 02:30 Acetaminophen (Tylenol Tab) 650 mg Q6H PRN PO .PAIN 1-3 OR TEMP; Start 10/04/18 at 02:30 Docusate Sodium (Colace) 100 mg Q12H PRN PO .CONSTIPATION; Start 10/04/18 at 02:30 Bisacodyl (Dulcolax) 5 mg DAILY PRN PO .CONSTIPATION; Start 10/04/18 at 02:30 Hydromorphone HCl (Dilaudid) 0.5 mg Q6H PRN IV PAIN LEVEL 6-10 Last administered on 10/08/18at 16:44; Admin Dose 0.5 MG; Start 10/05/18 at 15:00 Acetaminophen/ Hydrocodone Bitart ([place] (5/325)) 1 tab Q6H PRN PO PAIN LEVEL 6-10 Last administered on 10/09/18at 06:04; Admin Dose 1 TAB; Start 10/05/18 at 15:00 Ondansetron HCl (Zofran Inj) 4 mg Q6H PRN IV NAUSEA AND/OR VOMITING; Start 10/05/18 at 15:00 Acetaminophen/ Hydrocodone Bitart ([place] (5/325)) 1 tab Q6H PRN PO .MOD PAIN 4- 6; Start 10/05/18 at 15:30 Diphenhydramine HCl (Benadryl) 25 mg Q6H PRN PO ITCHING; Start 10/07/18 at 11:30 Loratadine (Claritin) 10 mg DAILY PO Last administered on 10/09/18at 10:16; Admin Dose 10 MG; Start 10/07/18 at 11:30 Clindamycin HCl/ Dextrose 50 ml @ 50 mls/hr Q8 IVPB Last administered on 10/09/18 13:31; Admin Dose 50 MLS/HR; Start 10/07/18 at 14:00 Nystatin (Nystatin Cr) 1 applic TID TOP Last administered on 10/09/18 13:31; Admin Dose 1 APPLIC; Start 10/07/18 at 21:00 VTE Prophylaxis Risk score (from Ns)>0 risk: 1 [place] [facility] [place] Lines/Catheters IV Catheter Type: Irene in Place: No Assessment/Plan Hospital Course Subjective Patient doing well, only complaint is surgical site pain Objective Physical exam General: Patient is laying in bed and answers questions appropriately Mentation: Patient is alert and oriented 4, Head: Normocephalic atraumatic Eyes: EOMI, pupils reactive to light Neck: Supple, nontender, midline Respiratory: Clear to auscultation bilaterally Cardiovascular: regular rate, no obvious murmurs Gastrointestinal: non-tender to palpation, bowel sounds heard. Neurological: Moves all extremities spontaneously Skin: Left breast and abdominal area bandaged, CDI Assessment/Plan 1. Left breast abscess s/p I&D 10/05/18 - ID on board and appreciate recommendations - continue local wound care - cx results noted - CM on board for assistance with insurance given patient is self pay and will need wound care to abscess areas after discharge - General surgery consultation appreciated - Pain control 2. Left abdominal wall abscess s/p I&D - Gen surgery consultation appreciated - Continue local wound care - IV antibiotics on board 3. Erythema of groin - will cont Nystatin to area - claritin started and PRN Benadryl 4. Disposition - Continue local wound care and antibiotics per ID recommendations. - Will need to address insurance status given patient will need continued wound care to area CLEMENTE DOMINGUEZ October 09, 2018 14:53
[2018-10-09] MEDS: HYDROmorphONE 0.5 MG/0.5 ML SYG IV PRN (16:48)
[2018-10-09 19:42] VITALS: BP 118/64; PULSE 70; RESP 17
[2018-10-10 02:00] VITALS: BP 99/56; PULSE 62; RESP 18
[2018-10-10] MEDS: CLINDAMYCIN 900 MG/D5W (PMX) 50 ML IVPB SCH ×3 (05:48→21:01)
[2018-10-10 07:47] VITALS: BP 110/59; PULSE 66; RESP 18
[2018-10-10] MEDS: NYSTATIN 15 GM CR TOP SCH ×3 (08:46→21:00)
[2018-10-10] MEDS: LORATADINE 10 MG TAB PO SCH (08:46)
[2018-10-10] MEDS: HYDROCODONE/APAP (5/325) TAB PO PRN (08:46)
--- NOTE | 2018-10-10 13:45 | PN ---
Date/Time of Note Date/Time of Note DATE: 10/10/18 TIME: 13:45 Objective Vitals Vital Signs Date Temp Pulse Resp B/P (MAP) Pulse Ox O2 O2 Flow FiO2 Time Delivery Rate 10/10/18 98.7 66 18 110/59 96 Room Air 07:47 (76) Intake and Output 10/09/18 10/09/18 10/10/18 1515:00 23:00 07:00 IntakeIntake Total 770 ml 50 ml 50 ml BalanceBalance 770 ml 50 ml 50 ml Results Result Diagram: 10/09/18 0443 10/09/18 0443 Medications Medications Current Medications IV Flush (NS 3 ml) 3 ml PER PROTOCOL IV ; Start 10/04/18 at 02:30 Acetaminophen (Tylenol Tab) 650 mg Q6H PRN PO .PAIN 1-3 OR TEMP; Start 10/04/18 at 02:30 Docusate Sodium (Colace) 100 mg Q12H PRN PO .CONSTIPATION; Start 10/04/18 at 02:30 Bisacodyl (Dulcolax) 5 mg DAILY PRN PO .CONSTIPATION; Start 10/04/18 at 02:30 Hydromorphone HCl (Dilaudid) 0.5 mg Q6H PRN IV PAIN LEVEL 6-10 Last administered on 10/09/18at 16:48; Admin Dose 0.5 MG; Start 10/05/18 at 15:00 Acetaminophen/ Hydrocodone Bitart ([place] (5/325)) 1 tab Q6H PRN PO PAIN LEVEL 6-10 Last administered on 10/09/18at 06:04; Admin Dose 1 TAB; Start 10/05/18 at 15:00 Ondansetron HCl (Zofran Inj) 4 mg Q6H PRN IV NAUSEA AND/OR VOMITING; Start 10/05/18 at 15:00 Acetaminophen/ Hydrocodone Bitart ([place] (5/325)) 1 tab Q6H PRN PO .MOD PAIN 4- 6 Last administered on 10/10/18at 08:46; Admin Dose 1 TAB; Start 10/05/18 at 15:30 Diphenhydramine HCl (Benadryl) 25 mg Q6H PRN PO ITCHING; Start 10/07/18 at 11:30 Loratadine (Claritin) 10 mg DAILY PO Last administered on 10/10/18at 08:46; Admin Dose 10 MG; Start 10/07/18 at 11:30 Clindamycin HCl/ Dextrose 50 ml @ 50 mls/hr Q8 IVPB Last administered on 10/10/18 13:31; Admin Dose 50 MLS/HR; Start 10/07/18 at 14:00 Nystatin (Nystatin Cr) 1 applic TID TOP Last administered on 10/10/18 13:31; Admin Dose 1 APPLIC; Start 10/07/18 at 21:00 VTE Prophylaxis Risk score (from Ns)>0 risk: 1 SCD applied (from [facility] [place]): Yes Lines/Catheters IV Catheter Type: Irene in Place: No Assessment/Plan Hospital Course Subjective Patient doing well, only complaint is surgical site pain Objective Physical exam General: Patient is laying in bed and answers questions appropriately Mentation: Patient is alert and oriented 4, Head: Normocephalic atraumatic Eyes: EOMI, pupils reactive to light Neck: Supple, nontender, midline Respiratory: Clear to auscultation bilaterally Cardiovascular: regular rate, no obvious murmurs Gastrointestinal: non-tender to palpation, bowel sounds heard. Neurological: Moves all extremities spontaneously Skin: Left breast and abdominal area bandaged, CDI Assessment/Plan 1. Left breast abscess s/p I&D 10/05/18 - ID on board and appreciate recommendations - continue local wound care - cx results noted - CM on board for assistance with insurance given patient is self pay and will need wound care to abscess areas after discharge - General surgery consultation appreciated - Pain control 2. Left abdominal wall abscess s/p I&D - Gen surgery consultation appreciated - Continue local wound care - IV antibiotics on board 3. Erythema of groin - will cont Nystatin to area - claritin started and PRN Benadryl 4. Disposition - Continue local wound care and antibiotics per ID recommendations. -filled out forms for disability CLEMENTE DOMINGUEZ October 10, 2018 13:45
[2018-10-10 14:00] VITALS: BP 133/69; PULSE 65; RESP 18
--- NOTE | 2018-10-10 14:54 | CONS ---
Assessment/Plan Assessment/Plan Hospital Course (Demo Recall) Alert, feels good, no fevers Antimicrobials: Clindamycin Intraoperative culture growing staph aureus left breast drainage culture grew oxacillin sensitive staph aureus Physical examination: Well-developed elderly woman who is alert in no distress head atraumatic normocephalic neck is supple chest rise symmetrical breath sounds clear heart: S1-S2 abdomen soft bowel sounds present. Assessment: 1. Left abdominal wall and left lateral breast soft tissue infection with abscess, status post I&D Plan: Stable, continue present care and antibiotics, anticipate discharge on oral clindamycin Consultation Date/Type/Reason Admit Date/Time October 04, 2018 at 23:07 Initial Consult Date 10/05/18 Type of Consult id Requesting Provider: ROGERIO NUNN Date/Time of Note DATE: 10/10/18 TIME: 14:54 Exam/Review of Systems Exam Vitals Vital Signs Date Temp Pulse Resp B/P (MAP) Pulse Ox O2 O2 Flow FiO2 Time Delivery Rate 10/10/18 98.7 66 18 110/59 96 Room Air 07:47 (76) Intake and Output 10/09/18 10/09/18 10/10/18 1515:00 23:00 07:00 IntakeIntake Total 770 ml 50 ml 50 ml BalanceBalance 770 ml 50 ml 50 ml Results Result Diagram: 10/09/18 0443 10/09/18 0443 Medications Medication Current Medications IV Flush (NS 3 ml) 3 ml PER PROTOCOL IV ; Start 10/04/18 at 02:30 Acetaminophen (Tylenol Tab) 650 mg Q6H PRN PO .PAIN 1-3 OR TEMP; Start 10/04/18 at 02:30 Docusate Sodium (Colace) 100 mg Q12H PRN PO .CONSTIPATION; Start 10/04/18 at 02:30 Bisacodyl (Dulcolax) 5 mg DAILY PRN PO .CONSTIPATION; Start 10/04/18 at 02:30 Hydromorphone HCl (Dilaudid) 0.5 mg Q6H PRN IV PAIN LEVEL 6-10 Last administered on 10/09/18at 16:48; Admin Dose 0.5 MG; Start 10/05/18 at 15:00 Acetaminophen/ Hydrocodone Bitart ([place] (5/325)) 1 tab Q6H PRN PO PAIN LEVEL 6-10 Last administered on 10/09/18 06:04; Admin Dose 1 TAB; Start 10/05/18 at 15:00 Ondansetron HCl (Zofran Inj) 4 mg Q6H PRN IV NAUSEA AND/OR VOMITING; Start at 15:00 Acetaminophen/ Hydrocodone Bitart ([place] (5/325)) 1 tab Q6H PRN PO .MOD PAIN 4- 6 Last administered on 10/10/18 08:46; Admin Dose 1 TAB; Start 10/05/18 at 15:30 Diphenhydramine HCl (Benadryl) 25 mg Q6H PRN PO ITCHING; Start 10/07/18 at 11:30 Loratadine (Claritin) 10 mg DAILY PO Last administered on 10/10/18 08:46; Admin Dose 10 MG; Start 10/07/18 at 11:30 Clindamycin HCl/ Dextrose 50 ml @ 50 mls/hr Q8 IVPB Last administered on 10/10/18 13:31; Admin Dose 50 MLS/HR; Start 10/07/18 at 14:00 Nystatin (Nystatin Cr) 1 applic TID TOP Last administered on 10/10/18 13:31; Admin Dose 1 APPLIC; Start 10/07/18 at 21:00 RAUL DIANA NP October 10, 2018 14:54
[2018-10-10] MEDS: HYDROmorphONE 0.5 MG/0.5 ML SYG IV PRN (15:14)
[2018-10-10 20:00] VITALS: BP 132/67; PULSE 66; RESP 18
[2018-10-11 02:07] VITALS: BP 109/64; PULSE 59; RESP 18
[2018-10-11] MEDS: CLINDAMYCIN 900 MG/D5W (PMX) 50 ML IVPB SCH ×3 (05:30→22:40)
[2018-10-11 08:05] VITALS: BP 109/58; PULSE 68; RESP 18
[2018-10-11] MEDS: NYSTATIN 15 GM CR TOP SCH ×3 (09:02→22:40)
[2018-10-11] MEDS: LORATADINE 10 MG TAB PO SCH (09:02)
[2018-10-11] MEDS: HYDROCODONE/APAP (5/325) TAB PO PRN ×2 (09:05→18:11)
[2018-10-11] MEDS: HYDROmorphONE 0.5 MG/0.5 ML SYG IV PRN (11:25)
--- NOTE | 2018-10-11 12:30 | PN ---
Date/Time of Note Date/Time of Note DATE: 10/11/18 TIME: 12:30 Objective Vitals Vital Signs Date Temp Pulse Resp B/P (MAP) Pulse Ox O2 O2 Flow FiO2 Time Delivery Rate 10/11/18 97.7 68 18 109/58 97 08:05 (75) 10/10/18 Room Air 14:00 Intake and Output 10/10/18 10/10/18 10/11/18 1515:00 23:00 07:00 IntakeIntake Total 650 ml 50 ml 50 ml BalanceBalance 650 ml 50 ml 50 ml Results Result Diagram: 10/11/18 0438 10/11/18 0438 Medications Medications Current Medications IV Flush (NS 3 ml) 3 ml PER PROTOCOL IV ; Start 10/04/18 at 02:30 Acetaminophen (Tylenol Tab) 650 mg Q6H PRN PO .PAIN 1-3 OR TEMP; Start 10/04/18 at 02:30 Docusate Sodium (Colace) 100 mg Q12H PRN PO .CONSTIPATION; Start 10/04/18 at 02:30 Bisacodyl (Dulcolax) 5 mg DAILY PRN PO .CONSTIPATION; Start 10/04/18 at 02:30 Hydromorphone HCl (Dilaudid) 0.5 mg Q6H PRN IV PAIN LEVEL 6-10 Last administered on 10/11/18at 11:25; Admin Dose 0.5 MG; Start 10/05/18 at 15:00 Acetaminophen/ Hydrocodone Bitart ([place] (5/325)) 1 tab Q6H PRN PO PAIN LEVEL 6-10 Last administered on 10/09/18at 06:04; Admin Dose 1 TAB; Start 10/05/18 at 15:00 Ondansetron HCl (Zofran Inj) 4 mg Q6H PRN IV NAUSEA AND/OR VOMITING; Start 10/05/18 at 15:00 Acetaminophen/ Hydrocodone Bitart ([place] (5/325)) 1 tab Q6H PRN PO .MOD PAIN 4- 6 Last administered on 10/11/18at 09:05; Admin Dose 1 TAB; Start 10/05/18 at 15:30 Diphenhydramine HCl (Benadryl) 25 mg Q6H PRN PO ITCHING Last administered on 10/10/18at 21:02; Admin Dose 25 MG; Start 10/07/18 at 11:30 Loratadine (Claritin) 10 mg DAILY PO Last administered on 10/11/18 09:02; Admin Dose 10 MG; Start 10/07/18 at 11:30 Clindamycin HCl/ Dextrose 50 ml @ 50 mls/hr Q8 IVPB Last administered on 10/11/18 05:30; Admin Dose 50 MLS/HR; Start 10/07/18 at 14:00 Nystatin (Nystatin Cr) 1 applic TID TOP Last administered on 10/11/18 09:02; Admin Dose 1 APPLIC; Start 10/07/18 at 21:00 VTE Prophylaxis Risk score (from [facility] [place])>0 risk: 3 SCD applied (from [facility] [place]): Yes Lines/Catheters IV Catheter Type: Irene in Place: No Assessment/Plan Hospital Course Subjective Patient doing well, only complaint is surgical site pain Objective Physical exam General: Patient is laying in bed and answers questions appropriately Mentation: Patient is alert and oriented 4, Head: Normocephalic atraumatic Eyes: EOMI, pupils reactive to light Neck: Supple, nontender, midline Respiratory: Clear to auscultation bilaterally Cardiovascular: regular rate, no obvious murmurs Gastrointestinal: non-tender to palpation, bowel sounds heard. Neurological: Moves all extremities spontaneously Skin: Left breast and abdominal area bandaged, CDI Assessment/Plan 1. Left breast abscess s/p I&D 10/05/18 - ID on board and appreciate recommendations - continue local wound care - cx results noted - CM on board for assistance with insurance given patient is self pay and will need wound care to abscess areas after discharge - General surgery consultation appreciated - Pain control 2. Left abdominal wall abscess s/p I&D - Gen surgery consultation appreciated - Continue local wound care - IV antibiotics on board 3. Erythema of groin - will cont Nystatin to area - claritin started and PRN Benadryl 4. Disposition - Continue local wound care and antibiotics per ID recommendations. -filled out forms for disability, pending ricardo-CLEMENTE Cat October 11, 2018 12:30
[2018-10-11 13:40] VITALS: BP 118/65; PULSE 65; RESP 18
--- NOTE | 2018-10-11 14:41 | CONS ---
Assessment/Plan Assessment/Plan Hospital Course (Demo Recall) Alert, feels good Antimicrobials: Clindamycin Intraoperative culture growing staph aureus left breast drainage culture grew oxacillin sensitive staph aureus Physical examination: Well-developed elderly woman who is alert in no distress head atraumatic normocephalic neck is supple chest rise symmetrical breath sounds clear heart: S1-S2 abdomen soft bowel sounds present. Assessment: 1. Left abdominal wall and left lateral breast soft tissue infection with abscess, status post I&D Plan: Improving on current abx, continue local wound care, anticipate discharge on oral clindamycin Consultation Date/Type/Reason Admit Date/Time October 04, 2018 at 23:07 Initial Consult Date 10/05/18 Type of Consult id Requesting Provider: ROGERIO NUNN Date/Time of Note DATE: 10/11/18 TIME: 14:40 Exam/Review of Systems Exam Vitals Vital Signs Date Temp Pulse Resp B/P (MAP) Pulse Ox O2 O2 Flow FiO2 Time Delivery Rate 10/11/18 98.7 65 18 118/65 95 13:40 (82) 10/10/18 Room Air 14:00 Intake and Output 10/10/18 10/10/18 10/11/18 1515:00 23:00 07:00 IntakeIntake Total 650 ml 50 ml 50 ml BalanceBalance 650 ml 50 ml 50 ml Results Result Diagram: 10/11/18 0438 10/11/18 0438 Results 24hrs Laboratory Tests Test 10/11/18 04:38 White Blood Count 5.3 Red Blood Count 4.58 Hemoglobin 12.2 Hematocrit 38.4 Mean Corpuscular Volume 83.8 Mean Corpuscular Hemoglobin 26.6 L Mean Corpuscular Hemoglobin Concent 31.8 L Red Cell Distribution Width 14.4 Platelet Count 255 Mean Platelet Volume 9.7 Immature Granulocytes % 0.600 H Neutrophils % 52.2 Lymphocytes % 35.9 Monocytes % 7.3 Eosinophils % 3.8 Basophils % 0.2 Nucleated Red Blood Cells % 0.0 Immature Granulocytes # 0.030 Neutrophils # 2.8 Lymphocytes # 1.9 Monocytes # 0.4 Eosinophils # 0.2 Basophils # 0.0 Nucleated Red Blood Cells # 0.0 Sodium Level 141 Potassium Level 4.4 Chloride Level 106 Carbon Dioxide Level 29 Anion Gap 6 Blood Urea Nitrogen 18 Creatinine 0.79 Est Glomerular Filtrat Rate mL/min > 60 Glucose Level 98 Calcium Level 9.0 Phosphorus Level 6.2 H Magnesium Level 2.2 Medications Medication Current Medications IV Flush (NS 3 ml) 3 ml PER PROTOCOL IV ; Start 10/04/18 at 02:30 Acetaminophen (Tylenol Tab) 650 mg Q6H PRN PO .PAIN 1-3 OR TEMP; Start 10/04/18 at 02:30 Docusate Sodium (Colace) 100 mg Q12H PRN PO .CONSTIPATION; Start 10/04/18 at 02:30 Bisacodyl (Dulcolax) 5 mg DAILY PRN PO .CONSTIPATION; Start 10/04/18 at 02:30 Hydromorphone HCl (Dilaudid) 0.5 mg Q6H PRN IV PAIN LEVEL 6-10 Last administered on 10/11/18 11:25; Admin Dose 0.5 MG; Start 10/05/18 at 15:00 Acetaminophen/ Hydrocodone Bitart ([place] (5/325)) 1 tab Q6H PRN PO PAIN LEVEL 6-10 Last administered on 10/09/18 06:04; Admin Dose 1 TAB; Start 10/05/18 at 15:00 Ondansetron HCl (Zofran Inj) 4 mg Q6H PRN IV NAUSEA AND/OR VOMITING; Start 10/05/18 at 15:00 Acetaminophen/ Hydrocodone Bitart ([place] (5/325)) 1 tab Q6H PRN PO .MOD PAIN 4- 6 Last administered on 10/11/18 09:05; Admin Dose 1 TAB; Start 10/05/18 at 15:30 Diphenhydramine HCl (Benadryl) 25 mg Q6H PRN PO ITCHING Last administered on 10/10/18 21:02; Admin Dose 25 MG; Start 10/07/18 at 11:30 Loratadine (Claritin) 10 mg DAILY PO Last administered on 10/11/18 09:02; Admin Dose 10 MG; Start 10/07/18 at 11:30 Clindamycin HCl/ Dextrose 50 ml @ 50 mls/hr Q8 IVPB Last administered on 10/11/18 13:50; Admin Dose 50 MLS/HR; Start 10/07/18 at 14:00 Nystatin (Nystatin Cr) 1 applic TID TOP Last administered on 5/24/19at 13:50; Admin Dose 1 APPLIC; Start 10/07/18 at 21:00 RAUL DIANA NP October 11, 2018 14:41
[2018-10-11 20:00] VITALS: BP 95/52; PULSE 96; RESP 18
[2018-10-12 02:00] VITALS: BP 98/56; PULSE 62; RESP 17
[2018-10-12] MEDS: CLINDAMYCIN 900 MG/D5W (PMX) 50 ML IVPB SCH ×3 (05:39→21:53)
[2018-10-12 07:23] VITALS: BP 105/59; PULSE 78; RESP 16
--- NOTE | 2018-10-12 07:47 | PN ---
Date/Time of Note Date/Time of Note DATE: 10/12/18 TIME: 07:46 Assessment/Plan VTE Prophylaxis Risk score (from Ns)>0 risk: 1 SCD applied (from Ns): Yes Pharmacological prophylaxis: NA/contraindicated Pharm contraindication: low risk/ambulating Lines/Catheters [facility] [place] Urinary Cath still in place: No Assessment/Plan Hospital Course SUBJECTIVE: Complains of pain in the incisions. OBJECTIVE: Physical Exam General: Adequately build 62 year-old female lying in bed in no apparent distress. HEENT: Normocephalic, atraumatic. Eyes: Anicteric sclerae, conjunctivae clear. ENT: Nasal septum midline, oral mucosa moist. Neck supple, no JVD noticed. Respiratory: Bilaterally clear breath sounds. No use of accessory muscles of respiration. No adventitious breath sounds. Cardiovascular: S1, S2 heard. Regular rate and rhythm. Abdomen: . Bowel sounds positive in all 4 quadrants. LLQ incision with packing in it. Wound bed clean with no purulent secretions. Genitourinary: Deferred. Extremities: No cyanosis, no clubbing, no edema. Peripheral pulses palpable. Neurologic: Cranial nerves II through XII grossly intact. The patient is awake, alert, and oriented. Skin (examined in the presence of a female field map editor): Left breast incision with wound bed red and no purulent secretions. Labs & Vitals per chart ASSESSMENT & PLAN 62-year-old female with no significant past medical history, who was sent by her primary care physician because of an abscess on her left breast and abdomen, who was admitted to inpatient setting for further treatment and evaluation. 1. Left abdominal wall soft tissue infection. -Status post surgical debridement on 10/05/2018. -Cultures showing Staph aureus. -Continue antimicrobials as per ID. -Continue local wound care. 2. Left breast soft tissue infection/abscess. -Status post surgical debridement on 10/05/2018. -Cultures showing staph aureus -Continue local wound care. -Continue antimicrobials as per ID. 3. Left groin erythema. -Continue nystatin. 4. Fluids, electrolytes, and nutrition. -Regular diet. 5. DVT prophylaxis. -Bilateral SCDs. 6. Plan. -Continue antimicrobials as per ID. -Continue local wound care. -Pending [facility]. The patient needs home health to be arranged upon discharge. The patient was seen in collaboration with Dr. Gomes. Result Diagram: 10/11/18 0438 10/11/18 0438 Exam/Review of Systems Exam Vitals Vital Signs Date Temp Pulse Resp B/P (MAP) Pulse Ox O2 O2 Flow FiO2 Time Delivery Rate 10/12/18 98.2 78 16 105/59 98 07:23 (74) 10/10/18 Room Air 14:00 Intake and Output 10/11/18 10/11/18 10/12/18 1515:00 23:00 07:00 IntakeIntake Total 650 ml 100 ml BalanceBalance 650 ml 100 ml Medications Medication Current Medications IV Flush (NS 3 ml) 3 ml PER PROTOCOL IV ; Start 10/04/18 at 02:30 Acetaminophen (Tylenol Tab) 650 mg Q6H PRN PO .PAIN 1-3 OR TEMP; Start 10/04/18 at 02:30 Docusate Sodium (Colace) 100 mg Q12H PRN PO .CONSTIPATION; Start 10/04/18 at 02:30 Bisacodyl (Dulcolax) 5 mg DAILY PRN PO .CONSTIPATION; Start 10/04/18 at 02:30 Hydromorphone HCl (Dilaudid) 0.5 mg Q6H PRN IV PAIN LEVEL 6-10 Last administered on 10/11/18at 11:25; Admin Dose 0.5 MG; Start 10/05/18 at 15:00 Acetaminophen/ Hydrocodone Bitart ([place] (5/325)) 1 tab Q6H PRN PO PAIN LEVEL 6-10 Last administered on 10/09/18at 06:04; Admin Dose 1 TAB; Start 10/05/18 at 15:00 Ondansetron HCl (Zofran Inj) 4 mg Q6H PRN IV NAUSEA AND/OR VOMITING; Start 10/05/18 at 15:00 Acetaminophen/ Hydrocodone Bitart ([place] (5/325)) 1 tab Q6H PRN PO .MOD PAIN 4- 6 Last administered on 10/11/18at 18:11; Admin Dose 1 TAB; Start 10/05/18 at 15:30 Diphenhydramine HCl (Benadryl) 25 mg Q6H PRN PO ITCHING Last administered on 10/10/18at 21:02; Admin Dose 25 MG; Start 10/07/18 at 11:30 Loratadine (Claritin) 10 mg DAILY PO Last administered on 10/11/18at 09:02; Admin Dose 10 MG; Start 10/07/18 at 11:30 Clindamycin HCl/ Dextrose 50 ml @ 50 mls/hr Q8 IVPB Last administered on at 05:39; Admin Dose 50 MLS/HR; Start 10/07/18 at 14:00 Nystatin (Nystatin Cr) 1 applic TID TOP Last administered on 10/11/18at 22:40; Admin Dose 1 APPLIC; Start 10/07/18 at 21:00 BÁRBARA CHANG NP October 12, 2018 07:47
[2018-10-12] MEDS: NYSTATIN 15 GM CR TOP SCH ×3 (09:41→21:54)
[2018-10-12] MEDS: LORATADINE 10 MG TAB PO SCH (09:41)
--- NOTE | 2018-10-12 11:49 | CONS ---
Assessment/Plan Assessment/Plan Hospital Course (Demo Recall) ID PROGRESS NOTE CURRENT ABX: DAY # 8=> Clindamycin s/p Vanco IV + Zosyn 10/04 - 09/2710/11/18 0438 10/11/18 0438 24H INTERVAL SUMMARY * Awake, alert, c/o severe pain when she moves in left breast * No fevers, WBC normalized, VSS, NAD -- work up for infx completed -- DC planning in process pending [facility] approval for IMAGING * 10/04/18 BREAST US: 1. 2.7 x 0.8 cm heterogeneous subcutaneous lesion at the 3 o'clock position of the left breast. This may represent a complex fluid marion ection or abscess. Correlate clinically. * 10/04/18 CT A-P: Skin thickening and subcutaneous stranding across the lower ventral abdominal wall with a focal area of nodular thickening within the left lower ventral abdominal wall measuring 2.3 x 1.5 cm. Findings could suggest an abscess; however, study is limited by lack of intravenous contrast. MICRO/OTHER * 10/05/18 BREAST Cx: WOUND CULTURE Final Organism 1 STAPHYLOCOCCUS AUREUS QUANTITY 2+ * 10/05/18 ABD WOUND: (+)AARON, (-)Anaerobes, (-)Fungal, (-)AFB smear * 10/04/18 BREAST CX: WOUND CULTURE Final Organism 1 STAPHYLOCOCCUS AUREUS * 10/04/18 ABD WOUND: (+)OSSAWOUND CULTURE Final Organism 1 STAPHYLOCOCCUS AUREUS QUANTITY 3+ S AUREUS M.I.C. RX --------- --- CEFAZOLIN S CIPROFLOXACIN <=0.5 S CLINDAMYCIN <=0.25 S DOXYCYCLINE S ERYTHROMYCIN <=0.25 S LEVOFLOXACIN 0.25 S OXACILLIN 0.5 S PENICILLIN-G >=0.5 R RIFAMPIN <=0.5 S VANCOMYCIN <=0.5 S TRIMETHOPRIM/SULFAMETHOXAZOLE >=320 R * 10/04/18 URINE: Mixed Pathogens * 10/04/18 BCx (-) PHYSICAL EXAMINATION: GENERAL: VSS, NAD, HEENT: AT, NC, NECK: WNL CHEST: Equal chest rise bilaterally without dyspnea on observation ABD: Soft, ND EXTREMITIES: Warm, dry SKIN: No rash, no diaphoresis ID ASSESSMENT 62 yo F admit with: 1. Left abdominal wall soft tissue infection. * -Status post surgical debridement on 10/05/2018. * -Cultures showing Staph aureus. 2. Left breast soft tissue infection/abscess w/ acute pain * -Status post surgical debridement on 10/05/2018. * -Cultures showing staph aureus 3. Left groin erythema -- likely local yeast infection from ABX * -Continue nystatin. 4. Hypertension: Suboptimal control (?)MRSA Nares ABX ALLERGIES: NKDA INVASIVES: PIV CURRENT ABX: DAY # 8=> Clindamycin s/p Vanco IV + Zosyn 10/04 - 09/27 ID RECOMMENDATIONS/PLAN: 1. Continue IV ABX until infection improves, anticipate change to PO ABX either Keflex 500mg po QID or Clindamycin 300mg PO QID x 10 days once improved. 2. Pending Medical approval -- CM working on DC plan . Consultation Date/Type/Reason Admit Date/Time October 04, 2018 at 23:07 Initial Consult Date 10/05/18 Requesting Provider: ROGERIO NUNN Date/Time of Note DATE: 10/12/18 TIME: 11:49 Exam/Review of Systems Exam Vitals Vital Signs Date Temp Pulse Resp B/P (MAP) Pulse Ox O2 O2 Flow FiO2 Time Delivery Rate 10/12/18 98.2 78 16 105/59 98 07:23 (74) 10/10/18 Room Air 14:00 Intake and Output 10/11/18 10/11/18 10/12/18 1515:00 23:00 07:00 IntakeIntake Total 650 ml 100 ml BalanceBalance 650 ml 100 ml Results Result Diagram: 10/11/188 10/11/18437 Medications Medication Current Medications IV Flush (NS 3 ml) 3 ml PER PROTOCOL IV ; Start 10/04/18 at 02:30 Acetaminophen (Tylenol Tab) 650 mg Q6H PRN PO .PAIN 1-3 OR TEMP; Start 10/04/18 at 02:30 Docusate Sodium (Colace) 100 mg Q12H PRN PO .CONSTIPATION; Start 10/04/18 at 02:30 Bisacodyl (Dulcolax) 5 mg DAILY PRN PO .CONSTIPATION; Start 10/04/18 at 02:30 Hydromorphone HCl (Dilaudid) 0.5 mg Q6H PRN IV PAIN LEVEL 6-10 Last administered on 10/11/18 11:25; Admin Dose 0.5 MG; Start 10/05/18 at 15:00 Acetaminophen/ Hydrocodone Bitart ([place] (5/325)) 1 tab Q6H PRN PO PAIN LEVEL 6-10 Last administered on 10/09/18 06:04; Admin Dose 1 TAB; Start 10/05/18 at 15:00 Ondansetron HCl (Zofran Inj) 4 mg Q6H PRN IV NAUSEA AND/OR VOMITING; Start 10/05/18 at 15:00 Acetaminophen/ Hydrocodone Bitart ([place] (5/325)) 1 tab Q6H PRN PO .MOD PAIN 4- 6 Last administered on 10/11/18 18:11; Admin Dose 1 TAB; Start 10/05/18 at 15:30 Diphenhydramine HCl (Benadryl) 25 mg Q6H PRN PO ITCHING Last administered on 10/10/18 21:02; Admin Dose 25 MG; Start 10/07/18 at 11:30 Loratadine (Claritin) 10 mg DAILY PO Last administered on 10/12/18 09:41; Admin Dose 10 MG; Start 10/07/18 at 11:30 Clindamycin HCl/ Dextrose 50 ml @ 50 mls/hr Q8 IVPB Last administered on 10/12/18 05:39; Admin Dose 50 MLS/HR; Start 10/07/18 at 14:00 Nystatin (Nystatin Cr) 1 applic TID TOP Last administered on 10/12/18 09:41; Admin Dose 1 APPLIC; Start 10/07/18 at 21:00 SARAH MENDEZ NP October 12, 2018 11:49
[2018-10-12 15:11] VITALS: BP 107/60; PULSE 78; RESP 16
[2018-10-12] MEDS: HYDROmorphONE 0.5 MG/0.5 ML SYG IV PRN (17:03)
[2018-10-12 19:45] VITALS: BP 126/62; PULSE 76; RESP 18
[2018-10-12] MEDS: HYDROCODONE/APAP (5/325) TAB PO PRN (21:53)
[2018-10-13 02:00] VITALS: BP 114/60; PULSE 68; RESP 18
[2018-10-13] MEDS: HYDROmorphONE 0.5 MG/0.5 ML SYG IV PRN ×3 (06:11→21:26)
[2018-10-13] MEDS: CLINDAMYCIN 900 MG/D5W (PMX) 50 ML IVPB SCH ×3 (06:11→21:26)
--- NOTE | 2018-10-13 07:29 | PN ---
Date/Time of Note Date/Time of Note DATE: 10/13/18 TIME: 07:28 Assessment/Plan VTE Prophylaxis Risk score (from Ns)>0 risk: 1 SCD applied (from Ns): Yes Pharmacological prophylaxis: NA/contraindicated Pharm contraindication: low risk/ambulating Lines/Catheters IV [facility]from [facility] [place] Urinary Cath still in place: No Assessment/Plan Hospital Course SUBJECTIVE: Had significant pain in the left breast last night. OBJECTIVE: Physical Exam General: Adequately build 62 year-old female lying in bed in no apparent distress. HEENT: Normocephalic, atraumatic. Eyes: Anicteric sclerae, conjunctivae clear. ENT: Nasal septum midline, oral mucosa moist. Neck supple, no JVD noticed. Respiratory: Bilaterally clear breath sounds. No use of accessory muscles of respiration. No adventitious breath sounds. Cardiovascular: S1, S2 heard. Regular rate and rhythm. Abdomen: . Bowel sounds positive in all 4 quadrants. LLQ incision with packing in it. Wound bed clean with no purulent secretions. Genitourinary: Deferred. Extremities: No cyanosis, no clubbing, no edema. Peripheral pulses palpable. Neurologic: Cranial nerves II through XII grossly intact. The patient is awake, alert, and oriented. Skin (examined in the presence of a female hotel casino floorperson): Left breast incision with wound bed red and no purulent secretions. Labs & Vitals per chart ASSESSMENT & PLAN 62-year-old female with no significant past medical history, who was sent by her primary care physician because of an abscess on her left breast and abdomen, who was admitted to inpatient setting for further treatment and evaluation. 1. Left abdominal wall soft tissue infection. -Status post surgical debridement on 10/05/2018. -Cultures showing Staph aureus. -Continue antimicrobials as per ID. -Continue local wound care. 2. Left breast soft tissue infection/abscess. -Status post surgical debridement on 10/05/2018. -Cultures showing staph aureus -Continue local wound care. -Continue antimicrobials as per ID. 3. Left groin erythema. -Continue nystatin. 4. Fluids, electrolytes, and nutrition. -Regular diet. 5. DVT prophylaxis. -Bilateral SCDs. 6. Plan. -Continue antimicrobials as per ID. -Continue local wound care. -Pending [facility]. The patient needs home health to be arranged upon discharge. The patient was seen in collaboration with Dr. Gomes. Result Diagram: 10/11/18 0438 10/11/18 0438 Exam/Review of Systems Exam Vitals Vital Signs Date Temp Pulse Resp B/P (MAP) Pulse Ox O2 O2 Flow FiO2 Time Delivery Rate 10/13/18 98.1 68 18 114/60 98 02:00 (78) 10/10/18 Room Air 14:00 Intake and Output 10/12/18 10/12/18 10/13/18 1515:00 23:00 07:00 IntakeIntake Total 610 ml 840 ml BalanceBalance 610 ml 840 ml Medications Medication Current Medications IV Flush (NS 3 ml) 3 ml PER PROTOCOL IV ; Start 10/04/18 at 02:30 Acetaminophen (Tylenol Tab) 650 mg Q6H PRN PO .PAIN 1-3 OR TEMP; Start 10/04/18 at 02:30 Docusate Sodium (Colace) 100 mg Q12H PRN PO .CONSTIPATION; Start 10/04/18 at 02:30 Bisacodyl (Dulcolax) 5 mg DAILY PRN PO .CONSTIPATION; Start 10/04/18 at 02:30 Hydromorphone HCl (Dilaudid) 0.5 mg Q6H PRN IV PAIN LEVEL 6-10 Last administered on 10/13/18at 06:11; Admin Dose 0.5 MG; Start 10/05/18 at 15:00 Acetaminophen/ Hydrocodone Bitart ([place] (5/325)) 1 tab Q6H PRN PO PAIN LEVEL 6-10 Last administered on 10/12/18at 21:53; Admin Dose 1 TAB; Start 10/05/18 at 15:00 Ondansetron HCl (Zofran Inj) 4 mg Q6H PRN IV NAUSEA AND/OR VOMITING; Start 10/05/18 at 15:00 Acetaminophen/ Hydrocodone Bitart ([place] (5/325)) 1 tab Q6H PRN PO .MOD PAIN 4- 6 Last administered on 10/11/18at 18:11; Admin Dose 1 TAB; Start 10/05/18 at 15:30 Diphenhydramine HCl (Benadryl) 25 mg Q6H PRN PO ITCHING Last administered on 10/10/18at 21:02; Admin Dose 25 MG; Start 10/07/18 at 11:30 Loratadine (Claritin) 10 mg DAILY PO Last administered on 10/12/18at 09:41; Admin Dose 10 MG; Start 10/07/18 at 11:30 Clindamycin HCl/ Dextrose 50 ml @ 50 mls/hr Q8 IVPB Last administered on 10/13/18at 06:11; Admin Dose 50 MLS/HR; Start 10/07/18 at 14:00 Nystatin (Nystatin Cr) 1 applic TID TOP Last administered on 10/12/18at 21:54; Admin Dose 1 APPLIC; Start 10/07/18 at 21:00 BÁRBARA CHANG NP October 13, 2018 07:29
[2018-10-13 08:11] VITALS: BP 103/63; PULSE 66; RESP 18
[2018-10-13] MEDS: LORATADINE 10 MG TAB PO SCH (08:45)
[2018-10-13] MEDS: NYSTATIN 15 GM CR TOP SCH ×3 (08:45→21:26)
[2018-10-13 15:14] VITALS: BP 115/55; PULSE 68; RESP 18
--- NOTE | 2018-10-13 17:10 | CONS ---
Assessment/Plan Assessment/Plan Hospital Course (Demo Recall) ID PROGRESS NOTE CURRENT ABX: DAY # 9=> Clindamycin s/p Vanco IV + Zosyn 10/04 - 09/27 24H INTERVAL SUMMARY * Awake, alert, c/o severe pain when she moves in left breast == pain improved today with medication * No fevers, WBC normalized, VSS, NAD -- work up for infx completed -- DC planning in process pending [facility] approval for HH IMAGING * 10/04/18 BREAST US: 1. 2.7 x 0.8 cm heterogeneous subcutaneous lesion at the 3 o'clock position of the left breast. This may represent a complex fluid collection or abscess. Correlate clinically. * 10/04/18 CT A-P: Skin thickening and subcutaneous stranding across the lower ventral abdominal wall with a focal area of nodular thickening within the left lower ventral abdominal wall measuring 2.3 x 1.5 cm. Findings could suggest an abscess; however, study is limited by lack of intravenous contrast. MICRO/OTHER * 10/05/18 BREAST Cx: WOUND CULTURE Final Organism 1 STAPHYLOCOCCUS AUREUS QUANTITY 2+ * 10/05/18 ABD WOUND: (+)AARON, (-)Anaerobes, (-)Fungal, (-)AFB smear * 10/04/18 BREAST CX: WOUND CULTURE Final Organism 1 STAPHYLOCOCCUS AUREUS * 10/04/18 ABD WOUND: (+)OSSAWOUND CULTURE Final Organism 1 STAPHYLOCOCCUS AUREUS QUANTITY 3+ S AUREUS M.I.C. RX --------- --- CEFAZOLIN S CIPROFLOXACIN <=0.5 S CLINDAMYCIN <=0.25 S DOXYCYCLINE S ERYTHROMYCIN <=0.25 S LEVOFLOXACIN 0.25 S OXACILLIN 0.5 S PENICILLIN-G >=0.5 R RIFAMPIN <=0.5 S VANCOMYCIN <=0.5 S TRIMETHOPRIM/SULFAMETHOXAZOLE >=320 R * 10/04/18 URINE: Mixed Pathogens * 10/04/18 BCx (-) PHYSICAL EXAMINATION: GENERAL: VSS, NAD, HEENT: AT, NC, NECK: WNL CHEST: Equal chest rise bilaterally without dyspnea on observation ABD: Soft, ND EXTREMITIES: Warm, dry SKIN: No rash, no diaphoresis ID ASSESSMENT 62 yo F admit with: 1. Left abdominal wall soft tissue infection. * -Status post surgical debridement on 10/05/2018. * -Cultures showing Staph aureus. 2. Left breast soft tissue infection/abscess w/ acute pain * -Status post surgical debridement on 10/05/2018. * -Cultures showing staph aureus 3. Left groin erythema -- likely local yeast infection from ABX * -Continue nystatin. 4. Hypertension: Suboptimal control (?)MRSA Nares ABX ALLERGIES: NKDA INVASIVES: PIV CURRENT ABX: DAY # 9=> Clindamycin s/p Vanco IV + Zosyn 10/04 - 09/27 ID RECOMMENDATIONS/PLAN: 1. Staph aureus is sensitive to Cipro and Augmentin -- she may do better with either ABX PO as both are only BID dosing vs Clinda PO which is QID * Anticipate DC on Cipro 750 MG po BID x 10 days to OP follow up 2. Adding Multi-Vitamin, Zinc, Ascorbic Acid, and BOOST supplements TID -- increased demands due to wound healing 2. Pending Medical approval -- CM working on DC plan . Consultation Date/Type/Reason Admit Date/Time October 04, 2018 at 23:07 Initial Consult Date 10/05/18 Requesting Provider: ROGERIO NUNN Date/Time of Note DATE: 10/13/18 TIME: 16:55 Exam/Review of Systems Exam Vitals Vital Signs Date Temp Pulse Resp B/P (MAP) Pulse Ox O2 O2 Flow FiO2 Time Delivery Rate 10/13/18 98.1 68 18 115/55 96 15:14 (75) 10/10/18 Room Air 14:00 Intake and Output 10/12/18 10/12/18 10/13/18 1515:00 23:00 07:00 IntakeIntake Total 610 ml 840 ml BalanceBalance 610 ml 840 ml Results Result Diagram: 10/11/18 0438 10/11/18 0438 Medications Medication Current Medications IV Flush (NS 3 ml) 3 ml PER PROTOCOL IV ; Start 10/04/18 at 02:30 Acetaminophen (Tylenol Tab) 650 mg Q6H PRN PO .PAIN 1-3 OR TEMP; Start 10/04/18 at 02:30 Docusate Sodium (Colace) 100 mg Q12H PRN PO .CONSTIPATION; Start 10/04/18 at 02:30 Bisacodyl (Dulcolax) 5 mg DAILY PRN PO .CONSTIPATION; Start 10/04/18 at 02:30 Hydromorphone HCl (Dilaudid) 0.5 mg Q6H PRN IV PAIN LEVEL 6-10 Last administered on 10/13/18 14:38; Admin Dose 0.5 MG; Start 10/05/18 at 15:00 Acetaminophen/ Hydrocodone Bitart ([place] (5/325)) 1 tab Q6H PRN PO PAIN LEVEL 6-10 Last administered on 10/12/18 21:53; Admin Dose 1 TAB; Start 10/05/18 at 15:00 Ondansetron HCl (Zofran Inj) 4 mg Q6H PRN IV NAUSEA AND/OR VOMITING; Start 10/05/18 at 15:00 Acetaminophen/ Hydrocodone Bitart ([place] (5/325)) 1 tab Q6H PRN PO .MOD PAIN 4- 6 Last administered on 10/11/18 18:11; Admin Dose 1 TAB; Start 10/05/18 at 15:30 Diphenhydramine HCl (Benadryl) 25 mg Q6H PRN PO ITCHING Last administered on 10/10/18 21:02; Admin Dose 25 MG; Start 10/07/18 at 11:30 Loratadine (Claritin) 10 mg DAILY PO Last administered on 10/13/18 08:45; Admin Dose 10 MG; Start 10/07/18 at 11:30 Clindamycin HCl/ Dextrose 50 ml @ 50 mls/hr Q8 IVPB Last administered on 10/13/18 14:38; Admin Dose 50 MLS/HR; Start 10/07/18 at 14:00 Nystatin (Nystatin Cr) 1 applic TID TOP Last administered on 10/13/18 13:14; Admin Dose 1 APPLIC; Start 10/07/18 at 21:00 SARAH MENDEZ NP October 13, 2018 17:05
[2018-10-13 19:23] VITALS: BP 123/59; PULSE 71; RESP 18
[2018-10-13] MEDS: ASCORBIC ACID 500 MG TAB PO SCH (21:26)
[2018-10-14 01:28] VITALS: BP 106/57; PULSE 60; RESP 18
[2018-10-14] MEDS: CLINDAMYCIN 900 MG/D5W (PMX) 50 ML IVPB SCH ×3 (05:36→21:32)
[2018-10-14 07:30] VITALS: BP 109/62; PULSE 72; RESP 14; RESP 67
[2018-10-14] MEDS: MULTIVIT/CA CARB/B CMPLX/FA TAB PO SCH (09:00)
[2018-10-14] MEDS: ZINC SULFATE 220 MG CAP PO SCH (09:06)
[2018-10-14] MEDS: ASCORBIC ACID 500 MG TAB PO SCH ×2 (09:06→21:32)
[2018-10-14] MEDS: NYSTATIN 15 GM CR TOP SCH ×3 (09:07→21:33)
[2018-10-14] MEDS: LORATADINE 10 MG TAB PO SCH (09:07)
[2018-10-14] MEDS: HYDROCODONE/APAP (5/325) TAB PO PRN (09:11)
--- NOTE | 2018-10-14 14:37 | PN ---
Date/Time of Note Date/Time of Note DATE: 10/14/18 TIME: 14:36 Assessment/Plan VTE Prophylaxis Risk score (from Nsg)>0 risk: 1 SCD applied (from Ns): Yes Pharmacological prophylaxis: NA/contraindicated Pharm contraindication: low risk/ambulating Lines/Catheters IV Catheter Type (from Nrsg): Peripheral IV Urinary Cath still in place: No Assessment/Plan Hospital Course SUBJECTIVE: Had significant pain in the left breast last night. OBJECTIVE: Physical Exam General: Adequately build 62 year-old female lying in bed in no apparent distress. HEENT: Normocephalic, atraumatic. Eyes: Anicteric sclerae, conjunctivae clear. ENT: Nasal septum midline, oral mucosa moist. Neck supple, no JVD noticed. Respiratory: Bilaterally clear breath sounds. No use of accessory muscles of respiration. No adventitious breath sounds. Cardiovascular: S1, S2 heard. Regular rate and rhythm. Abdomen: . Bowel sounds positive in all 4 quadrants. LLQ incision with packing in it. Wound bed clean with no purulent secretions. Genitourinary: Deferred. Extremities: No cyanosis, no clubbing, no edema. Peripheral pulses palpable. Neurologic: Cranial nerves II through XII grossly intact. The patient is awake, alert, and oriented. Skin (examined in the presence of a female rural health consultant): Left breast incision with wound bed red and no purulent secretions. Labs & Vitals per chart ASSESSMENT & PLAN 62-year-old female with no significant past medical history, who was sent by her primary care physician because of an abscess on her left breast and abdomen, who was admitted to inpatient setting for further treatment and evaluation. 1. Left abdominal wall soft tissue infection. -Status post surgical debridement on 10/05/2018. -Cultures showing Staph aureus. -Continue antimicrobials as per ID. -Continue local wound care. 2. Left breast soft tissue infection/abscess. -Status post surgical debridement on 10/05/2018. -Cultures showing staph aureus -Continue local wound care. -Continue antimicrobials as per ID. 3. Left groin erythema. -Continue nystatin. 4. Fluids, electrolytes, and nutrition. -Regular diet. 5. DVT prophylaxis. -Bilateral SCDs. 6. Plan. -Continue antimicrobials as per ID. -Continue local wound care. -Pending [facility]. The patient needs home health to be arranged upon discharge. The patient was seen in collaboration with Dr. Brown. Result Diagram: 10/11/18 0438 10/11/18437 Exam/Review of Systems Exam Vitals Vital Signs Date Temp Pulse Resp B/P (MAP) Pulse Ox O2 O2 Flow FiO2 Time Delivery Rate 10/14/18 98.0 72 14 109/62 95 07:30 (78) 10/10/18 Room Air 14:00 Intake and Output 10/13/18 10/13/18 10/14/18 1515:00 23:00 07:00 IntakeIntake Total 290 ml 820 ml 50 ml BalanceBalance 290 ml 820 ml 50 ml Medications Medication Current Medications IV Flush (NS 3 ml) 3 ml PER PROTOCOL IV ; Start 10/04/18 at 02:30 Acetaminophen (Tylenol Tab) 650 mg Q6H PRN PO .PAIN 1-3 OR TEMP; Start 10/04/18 at 02:30 Docusate Sodium (Colace) 100 mg Q12H PRN PO .CONSTIPATION; Start 10/04/18 at 02:30 Bisacodyl (Dulcolax) 5 mg DAILY PRN PO .CONSTIPATION; Start 10/04/18 at 02:30 Hydromorphone HCl (Dilaudid) 0.5 mg Q6H PRN IV PAIN LEVEL 6-10 Last admini stered on 10/13/18at 21:26; Admin Dose 0.5 MG; Start 10/05/18 at 15:00 Acetaminophen/ Hydrocodone Bitart ([place] (5/325)) 1 tab Q6H PRN PO PAIN LEVEL 6-10 Last administered on 10/14/18 09:11; Admin Dose 1 TAB; Start 10/05/18 at 15:00 Ondansetron HCl (Zofran Inj) 4 mg Q6H PRN IV NAUSEA AND/OR VOMITING; Start 10/05/18 at 15:00 Acetaminophen/ Hydrocodone Bitart ([place] (5/325)) 1 tab Q6H PRN PO .MOD PAIN 4- 6 Last administered on 10/11/18at 18:11; Admin Dose 1 TAB; Start 10/05/18 at 15:30 Diphenhydramine HCl (Benadryl) 25 mg Q6H PRN PO ITCHING Last administered on 10/10/18 21:02; Admin Dose 25 MG; Start 10/07/18 at 11:30 Loratadine (Claritin) 10 mg DAILY PO Last administered on 10/14/18 09:07; Admin Dose 10 MG; Start 10/07/18 at 11:30 Clindamycin HCl/ Dextrose 50 ml @ 50 mls/hr Q8 IVPB Last administered on 10/14/18 13:52; Admin Dose 50 MLS/HR; Start 10/07/18 at 14:00 Nystatin (Nystatin Cr) 1 applic TID TOP Last administered on 10/14/18 13:52; Admin Dose 1 APPLIC; Start 10/07/18 at 21:00 Ascorbic Acid (Vitamin C) 500 mg BID PO Last administered on 10/14/18 09:06; Admin Dose 500 MG; Start 10/13/18 at 21:00 Zinc Sulfate (Zinc Sulfate) 220 mg DAILY PO Last administered on 10/14/18 09:06; Admin Dose 220 MG; Start 10/14/18 at 09:00 Multivit/Ca Carb/ B Cmplx/FA/Prenat (Natalie-Carmen) 1 tab DAILY PO ; Start 10/14/18 at 09:00 BÁRBARA CHANG NP October 14, 2018 14:37
[2018-10-14 15:09] VITALS: BP 100/59; PULSE 69; RESP 16
--- NOTE | 2018-10-14 15:43 | CONS ---
Assessment/Plan Assessment/Plan Hospital Course (Demo Recall) ID PROGRESS NOTE CURRENT ABX: DAY # 10=> Clindamycin s/p Vanco IV + Zosyn 10/04 - 09/27 24H INTERVAL SUMMARY * Awake, alert, c/o severe pain when she moves in left breast == pain improved today with medication * No fevers, WBC normalized, VSS, NAD -- work up for infx completed -- DC planning in process pending [facility] approval for HH IMAGING * 10/04/18 BREAST US: 1. 2.7 x 0.8 cm heterogeneous subcutaneous lesion at the 3 o'clock position of the left breast. This may represent a complex fluid collection or abscess. Correlate clinically. * 10/04/18 CT A-P: Skin thickening and subcutaneous stranding across the lower ventral abdominal wall with a focal area of nodular thickening within the left lower ventral abdominal wall measuring 2.3 x 1.5 cm. Findings could suggest an abscess; however, study is limited by lack of intravenous contrast. MICRO/OTHER * 10/05/18 BREAST Cx: WOUND CULTURE Final Organism 1 STAPHYLOCOCCUS AUREUS QUANTITY 2+ * 10/05/18 ABD WOUND: (+)AARON, (-)Anaerobes, (-)Fungal, (-)AFB smear * 10/04/18 BREAST CX: WOUND CULTURE Final Organism 1 STAPHYLOCOCCUS AUREUS * 10/04/18 ABD WOUND: (+)OSSAWOUND CULTURE Final Organism 1 STAPHYLOCOCCUS AUREUS QUANTITY 3+ S AUREUS M.I.C. RX --------- --- CEFAZOLIN S CIPROFLOXACIN <=0.5 S CLINDAMYCIN <=0.25 S DOXYCYCLINE S ERYTHROMYCIN <=0.25 S LEVOFLOXACIN 0.25 S OXACILLIN 0.5 S PENICILLIN-G >=0.5 R RIFAMPIN <=0.5 S VANCOMYCIN <=0.5 S TRIMETHOPRIM/SULFAMETHOXAZOLE >=320 R * 10/04/18 URINE: Mixed Pathogens * 10/04/18 BCx (-) PHYSICAL EXAMINATION: GENERAL: VSS, NAD, HEENT: AT, NC, NECK: WNL CHEST: Equal chest rise bilaterally without dyspnea on observation ABD: Soft, ND EXTREMITIES: Warm, dry SKIN: No rash, no diaphoresis ID ASSESSMENT 62 yo F admit with: 1. Left abdominal wall soft tissue infection. * -Status post surgical debridement on 10/05/2018. * -Cultures showing Staph aureus. 2. Left breast soft tissue infection/abscess w/ acute pain * -Status post surgical debridement on 10/05/2018. * -Cultures showing staph aureus 3. Left groin erythema -- likely local yeast infection from ABX * -Continue nystatin. 4. Hypertension: Suboptimal control (?)MRSA Nares ABX ALLERGIES: NKDA INVASIVES: PIV CURRENT ABX: DAY # 10=> Clindamycin s/p Vanco IV + Zosyn 10/04 - 09/27 ID RECOMMENDATIONS/PLAN: 1. Staph aureus is sensitive to Cipro and Augmentin -- she may do better with either ABX PO as both are only BID dosing vs Clinda PO which is QID * Anticipate DC on Cipro 750 MG po BID x 10 days to OP follow up 2. Adding Multi-Vitamin, Zinc, Ascorbic Acid, and BOOST supplements TID -- increased demands due to wound healing 2. Pending Medical approval -- CM working on DC plan . Consultation Date/Type/Reason Admit Date/Time October 04, 2018 at 23:07 Initial Consult Date 10/05/18 Requesting Provider: ROGERIO NUNN Date/Time of Note DATE: 10/14/18 TIME: 15:35 Exam/Review of Systems Exam Vitals Vital Signs Date Temp Pulse Resp B/P (MAP) Pulse Ox O2 O2 Flow FiO2 Time Delivery Rate 10/14/18 98.5 69 16 100/59 96 15:09 (73) 10/10/18 Room Air 14:00 Intake and Output 10/13/18 10/13/18 10/14/18 1515:00 23:00 07:00 IntakeIntake Total 290 ml 820 ml 50 ml BalanceBalance 290 ml 820 ml 50 ml Results Result Diagram: 10/11/18 0438 10/11/18 0438 Medications Medication Current Medications IV Flush (NS 3 ml) 3 ml PER PROTOCOL IV ; Start 10/04/18 at 02:30 Acetaminophen (Tylenol Tab) 650 mg Q6H PRN PO .PAIN 1-3 OR TEMP; Start 10/04/18 at 02:30 Docusate Sodium (Colace) 100 mg Q12H PRN PO .CONSTIPATION; Start 10/04/18 at 02:30 Bisacodyl (Dulcolax) 5 mg DAILY PRN PO .CONSTIPATION; Start 10/04/18 at 02:30 Hydromorphone HCl (Dilaudid) 0.5 mg Q6H PRN IV PAIN LEVEL 6-10 Last administered on 10/13/18 21:26; Admin Dose 0.5 MG; Start 10/05/18 at 15:00 Acetaminophen/ Hydrocodone Bitart ([place] (5/325)) 1 tab Q6H PRN PO PAIN LEVEL 6-10 Last administered on 10/14/18 09:11; Admin Dose 1 TAB; Start 10/05/18 at 15:00 Ondansetron HCl (Zofran Inj) 4 mg Q6H PRN IV NAUSEA AND/OR VOMITING; Start 10/05/18 at 15:00 Acetaminophen/ Hydrocodone Bitart ([place] (5/325)) 1 tab Q6H PRN PO .MOD PAIN 4- 6 Last administered on 10/11/18 18:11; Admin Dose 1 TAB; Start 10/05/18 at 15:30 Diphenhydramine HCl (Benadryl) 25 mg Q6H PRN PO ITCHING Last administered on 21:02; Admin Dose 25 MG; Start 10/07/18 at 11:30 Loratadine (Claritin) 10 mg DAILY PO Last administered on 10/14/18 09:07; Admin Dose 10 MG; Start 10/07/18 at 11:30 Clindamycin HCl/ Dextrose 50 ml @ 50 mls/hr Q8 IVPB Last administered on 10/14/18 13:52; Admin Dose 50 MLS/HR; Start 10/07/18 at 14:00 Nystatin (Nystatin Cr) 1 applic TID TOP Last administered on 10/14/18 13:52; Admin Dose 1 APPLIC; Start 10/07/18 at 21:00 Ascorbic Acid (Vitamin C) 500 mg BID PO Last administered on 10/14/18 09:06; Admin Dose 500 MG; Start 10/13/18 at 21:00 Zinc Sulfate (Zinc Sulfate) 220 mg DAILY PO Last administered on 10/14/18at 09:06; Admin Dose 220 MG; Start 10/14/18 at 09:00 Multivit/Ca Carb/ B Cmplx/FA/Prenat (Natalie-Carmen) 1 tab DAILY PO ; Start 10/14/18 at 09:00 SARAH MENDEZ NP October 14, 2018 15:43
[2018-10-14] MEDS: HYDROmorphONE 0.5 MG/0.5 ML SYG IV PRN ×2 (15:48→21:32)
[2018-10-14 19:32] VITALS: BP 118/63; PULSE 63; RESP 16
[2018-10-15 02:37] VITALS: BP 100/59; PULSE 61; RESP 16
[2018-10-15] MEDS: CLINDAMYCIN 900 MG/D5W (PMX) 50 ML IVPB SCH ×3 (05:05→22:32)
[2018-10-15 07:38] VITALS: BP 103/56; PULSE 57; RESP 20
[2018-10-15] MEDS: ASCORBIC ACID 500 MG TAB PO SCH ×2 (10:11→21:04)
[2018-10-15] MEDS: LORATADINE 10 MG TAB PO SCH (10:11)
[2018-10-15] MEDS: ZINC SULFATE 220 MG CAP PO SCH (10:11)
[2018-10-15] MEDS: NYSTATIN 15 GM CR TOP SCH ×3 (10:11→21:05)
[2018-10-15] MEDS: MULTIVIT/CA CARB/B CMPLX/FA TAB PO SCH (10:11)
[2018-10-15] MEDS: HYDROCODONE/APAP (5/325) TAB PO PRN ×2 (10:14→21:04)
--- NOTE | 2018-10-15 13:28 | CONS ---
Assessment/Plan Assessment/Plan Hospital Course (Demo Recall) Alert, feels better Antimicrobials: Clindamycin Intraoperative culture growing staph aureus left breast drainage culture grew oxacillin sensitive staph aureus Physical examination: Well-developed elderly woman who is alert in no distress head atraumatic normocephalic neck is supple chest rise symmetrical breath sounds clear heart: S1-S2 abdomen soft bowel sounds present. Assessment: 1. Left abdominal wall and left lateral breast soft tissue infection with abscess, status post I&D Plan: Improving on current abx, continue local wound care, anticipate discharge on oral clindamycin or PO Cipro Consultation Date/Type/Reason Admit Date/Time October 04, 2018 at 23:07 Initial Consult Date 10/05/18 Type of Consult id Requesting Provider: ROGERIO NUNN Date/Time of Note DATE: 10/15/18 TIME: 13:27 Exam/Review of Systems Exam Vitals Vital Signs Date Temp Pulse Resp B/P (MAP) Pulse Ox O2 O2 Flow FiO2 Time Delivery Rate 10/15/18 98.4 57 20 103/56 96 07:38 (72) Intake and Output 10/14/18 10/14/18 10/15/18 1515:00 23:00 07:00 IntakeIntake Total 850 ml 480 ml 100 ml BalanceBalance 850 ml 480 ml 100 ml Results Result Diagram: 10/11/18 0438 10/11/18 0438 Medications Medication Current Medications IV Flush (NS 3 ml) 3 ml PER PROTOCOL IV ; Start 10/04/18 at 02:30 Acetaminophen (Tylenol Tab) 650 mg Q6H PRN PO .PAIN 1-3 OR TEMP; Start 10/04/18 at 02:30 Docusate Sodium (Colace) 100 mg Q12H PRN PO .CONSTIPATION; Start 10/04/18 at 02:30 Bisacodyl (Dulcolax) 5 mg DAILY PRN PO .CONSTIPATION; Start 10/04/18 at 02:30 Hydromorphone HCl (Dilaudid) 0.5 mg Q6H PRN IV PAIN LEVEL 6-10 Last administered on 10/14/18at 21:32; Admin Dose 0.5 MG; Start 10/05/18 at 15:00 Acetaminophen/ Hydrocodone Bitart ([place] (5/325)) 1 tab Q6H PRN PO PAIN LEVEL 6-10 Last administered on 10/15/18 10:14; Admin Dose 1 TAB; Start 10/05/18 at 15:00 Ondansetron HCl (Zofran Inj) 4 mg Q6H PRN IV NAUSEA AND/OR VOMITING; Start 10/05/18 at 15:00 Acetaminophen/ Hydrocodone Bitart ([place] (5/325)) 1 tab Q6H PRN PO .MOD PAIN 4- 6 Last administered on 10/11/18 18:11; Admin Dose 1 TAB; Start 10/05/18 at 15:30 Diphenhydramine HCl (Benadryl) 25 mg Q6H PRN PO ITCHING Last administered on 10/10/18 21:02; Admin Dose 25 MG; Start 10/07/18 at 11:30 Loratadine (Claritin) 10 mg DAILY PO Last administered on 10/15/18 10:11; Admi n Dose 10 MG; Start 10/07/18 at 11:30 Clindamycin HCl/ Dextrose 50 ml @ 50 mls/hr Q8 IVPB Last administered on 10/15/18 05:05; Admin Dose 50 MLS/HR; Start 10/07/18 at 14:00 Nystatin (Nystatin Cr) 1 applic TID TOP Last administered on 10/15/18 10:11; Admin Dose 1 APPLIC; Start 10/07/18 at 21:00 Ascorbic Acid (Vitamin C) 500 mg BID PO Last administered on 10/15/18 10:11; Admin Dose 500 MG; Start 10/13/18 at 21:00 Zinc Sulfate (Zinc Sulfate) 220 mg DAILY PO Last administered on 10/15/18 10: 11; Admin Dose 220 MG; Start 10/14/18 at 09:00 Multivit/Ca Carb/ B Cmplx/FA/Prenat (Natalie-Carmen) 1 tab DAILY PO Last administered on 10/15/18 10:11; Admin Dose 1 TAB; Start 10/14/18 at 09:00 RAUL DIANA NP October 15, 2018 13:28
--- NOTE | 2018-10-15 13:39 | PN ---
Date/Time of Note Date/Time of Note DATE: 10/15/18 TIME: 13:38 Assessment/Plan VTE Prophylaxis Risk score (from Nsg)>0 risk: 1 SCD applied (from Nsg): Yes Pharmacological prophylaxis: NA/contraindicated Pharm contraindication: low risk/ambulating Lines/Catheters IV Catheter Type (from Nrsg): Peripheral IV Urinary Cath still in place: No Assessment/Plan Hospital Course SUBJECTIVE: Pain better controlled. OBJECTIVE: Physical Exam General: Adequately build 62 year-old female lying in bed in no apparent distress. HEENT: Normocephalic, atraumatic. Eyes: Anicteric sclerae, conjunctivae clear. ENT: Nasal septum midline, oral mucosa moist. Neck supple, no JVD noticed. Respiratory: Bilaterally clear breath sounds. No use of accessory muscles of respiration. No adventitious breath sounds. Cardiovascular: S1, S2 heard. Regular rate and rhythm. Abdomen: . Bowel sounds positive in all 4 quadrants. LLQ incision with packing in it. Wound bed clean with no purulent secretions. Genitourinary: Deferred. Extremities: No cyanosis, no clubbing, no edema. Peripheral pulses palpable. Neurologic: Cranial nerves II through XII grossly intact. The patient is awake, alert, and oriented. Skin (examined in the presence of a female director traffic and planning): Left breast incision with wound bed red and no purulent secretions. Labs & Vitals per chart ASSESSMENT & PLAN 62-year-old female with no significant past medical history, who was sent by her primary care physician because of an abscess on her left breast and abdomen, who was admitted to inpatient setting for further treatment and evaluation. 1. Left abdominal wall soft tissue infection. -Status post surgical debridement on 10/05/2018. -Cultures showing Staph aureus. -Continue antimicrobials as per ID. -Continue local wound care. 2. Left breast soft tissue infection/abscess. -Status post surgical debridement on 10/05/2018. -Cultures showing staph aureus -Continue local wound care. -Continue antimicrobials as per ID. 3. Left groin erythema. -Continue nystatin. 4. Fluids, electrolytes, and nutrition. -Regular diet. 5. DVT prophylaxis. -Bilateral SCDs. 6. Plan. -Continue antimicrobials as per ID. -Continue local wound care. -Pending [facility]. The patient needs home health to be arranged upon discharge. The patient was seen in collaboration with Dr. Brown. Result Diagram: 10/11/18 0438 10/11/18 0438 Exam/Review of Systems Exam Vitals Vital Signs Date Temp Pulse Resp B/P (MAP) Pulse Ox O2 O2 Flow FiO2 Time Delivery Rate 10/15/18 98.4 57 20 103/56 96 07:38 (72) Intake and Output 10/14/18 10/14/18 10/15/18 1515:00 23:00 07:00 IntakeIntake Total 850 ml 480 ml 100 ml BalanceBalance 850 ml 480 ml 100 ml Medications Medication Current Medications IV Flush (NS 3 ml) 3 ml PER PROTOCOL IV ; Start 10/04/18 at 02:30 Acetaminophen (Tylenol Tab) 650 mg Q6H PRN PO .PAIN 1-3 OR TEMP; Start 10/04/18 at 02:30 Docusate Sodium (Colace) 100 mg Q12H PRN PO .CONSTIPATION; Start 10/04/18 at 02:30 Bisacodyl (Dulcolax) 5 mg DAILY PRN PO .CONSTIPATION; Start 10/04/18 at 02:30 Hydromorphone HCl (Dilaudid) 0.5 mg Q6H PRN IV PAIN LEVEL 6-10 Last administered on 10/14/18at 21:32; Admin Dose 0.5 MG; Start 10/05/18 at 15:00 Acetaminophen/ Hydrocodone Bitart ([place] (5/325)) 1 tab Q6H PRN PO PAIN LEVEL 6-10 Last administered on 10/15/18at 10:14; Admin Dose 1 TAB; Start 10/05/18 at 15:00 Ondansetron HCl (Zofran Inj) 4 mg Q6H PRN IV NAUSEA AND/OR VOMITING; Start 10/05/18 at 15:00 Acetaminophen/ Hydrocodone Bitart ([place] (5/325)) 1 tab Q6H PRN PO .MOD PAIN 4- 6 Last administered on 10/11/18at 18:11; Admin Dose 1 TAB; Start 10/05/18 at 15:30 Diphenhydramine HCl (Benadryl) 25 mg Q6H PRN PO ITCHING Last administered on 10/10/18at 21:02; Admin Dose 25 MG; Start 10/07/18 at 11:30 Loratadine (Claritin) 10 mg DAILY PO Last administered on 10/15/18 10:11; Admin Dose 10 MG; Start 10/07/18 at 11:30 Clindamycin HCl/ Dextrose 50 ml @ 50 mls/hr Q8 IVPB Last administered on 10/15/18 05:05; Admin Dose 50 MLS/HR; Start 10/07/18 at 14:00 Nystatin (Nystatin Cr) 1 applic TID TOP Last administered on 10/15/18 13:27; Admin Dose 1 APPLIC; Start 10/07/18 at 21:00 Ascorbic Acid (Vitamin C) 500 mg BID PO Last administered on 10/15/18 10:11; Admin Dose 500 MG; Start 10/13/18 at 21:00 Zinc Sulfate (Zinc Sulfate) 220 mg DAILY PO Last administered on 10/15/18 10:11; Admin Dose 220 MG; Start 10/14/18 at 09:00 Multivit/Ca Carb/ B Cmplx/FA/Prenat (Natalie-Carmen) 1 tab DAILY PO Last administered on 10/15/18 10:11; Admin Dose 1 TAB; Start 10/14/18 at 09:00 BÁRBARA CHANG NP October 15, 2018 13:39
[2018-10-15 14:03] VITALS: BP 100/60; PULSE 67; RESP 20
[2018-10-15] MEDS: HYDROmorphONE 0.5 MG/0.5 ML SYG IV PRN (16:37)
[2018-10-15 19:25] VITALS: BP 115/62; PULSE 67; RESP 18
[2018-10-16] MEDS: HYDROmorphONE 0.5 MG/0.5 ML SYG IV PRN ×2 (01:41→16:06)
[2018-10-16 01:52] VITALS: BP 103/53; PULSE 56; RESP 18
[2018-10-16] MEDS: CLINDAMYCIN 900 MG/D5W (PMX) 50 ML IVPB SCH ×3 (05:49→21:30)
[2018-10-16 07:39] VITALS: BP 100/56; PULSE 60; RESP 17
[2018-10-16] MEDS: MULTIVIT/CA CARB/B CMPLX/FA TAB PO SCH (09:09)
[2018-10-16] MEDS: LORATADINE 10 MG TAB PO SCH (09:09)
[2018-10-16] MEDS: ZINC SULFATE 220 MG CAP PO SCH (09:09)
[2018-10-16] MEDS: ASCORBIC ACID 500 MG TAB PO SCH ×2 (09:09→21:29)
[2018-10-16] MEDS: NYSTATIN 15 GM CR TOP SCH ×3 (09:10→21:29)
--- NOTE | 2018-10-16 12:27 | CONS ---
Assessment/Plan Assessment/Plan Hospital Course (Demo Recall) All noted, no acute events overnight, no fevers. Patient is sleeping Antimicrobials: Clindamycin Intraoperative culture growing staph aureus left breast drainage culture grew oxacillin sensitive staph aureus Physical examination: Well-developed elderly woman who is alert in no distress head atraumatic normocephalic neck is supple chest rise symmetrical breath sounds clear heart: S1-S2 abdomen soft bowel sounds present. Assessment: 1. Left abdominal wall and left lateral breast soft tissue infection with abscess, status post I&D Plan: Improving on current abx, continue local wound care, anticipate discharge on oral clindamycin or PO Cipro Consultation Date/Type/Reason Admit Date/Time October 04, 2018 at 23:07 Initial Consult Date 10/05/18 Type of Consult id Requesting Provider: ROGERIO NUNN Date/Time of Note DATE: 10/16/18 TIME: 12:27 Exam/Review of Systems Exam Vitals Vital Signs Date Temp Pulse Resp B/P (MAP) Pulse Ox O2 O2 Flow FiO2 Time Delivery Rate 10/16/18 98.0 60 17 100/56 96 Room Air 07:39 (71) Intake and Output 10/15/18 10/15/18 10/16/18 1515:00 23:00 07:00 IntakeIntake Total 530 ml 100 ml BalanceBalance 530 ml 100 ml Medications Medication Current Medications IV Flush (NS 3 ml) 3 ml PER PROTOCOL IV ; Start 10/04/18 at 02:30 Acetaminophen (Tylenol Tab) 650 mg Q6H PRN PO .PAIN 1-3 OR TEMP; Start 10/04/18 at 02:30 Docusate Sodium (Colace) 100 mg Q12H PRN PO .CONSTIPATION; Start 10/04/18 at 02:30 Bisacodyl (Dulcolax) 5 mg DAILY PRN PO .CONSTIPATION; Start 10/04/18 at 02:30 Hydromorphone HCl (Dilaudid) 0.5 mg Q6H PRN IV PAIN LEVEL 6-10 Last administered on 10/16/18at 01:41; Admin Dose 0.5 MG; Start 10/05/18 at 15:00 Acetaminophen/ Hydrocodone Bitart ([place] (5/325)) 1 tab Q6H PRN PO PAIN LEVEL 6-10 Last administered on 5/28/19at 21:04; Admin Dose 1 TAB; Start 10/05/18 at 15:00 Ondansetron HCl (Zofran Inj) 4 mg Q6H PRN IV NAUSEA AND/OR VOMITING; Start 10/05/18 at 15:00 Acetaminophen/ Hydrocodone Bitart ([place] (5/325)) 1 tab Q6H PRN PO .MOD PAIN 4- 6 Last administered on 10/11/18 18:11; Admin Dose 1 TAB; Start 10/05/18 at 15:30 Diphenhydramine HCl (Benadryl) 25 mg Q6H PRN PO ITCHING Last administered on 10/10/18 21:02; Admin Dose 25 MG; Start 10/07/18 at 11:30 Loratadine (Claritin) 10 mg DAILY PO Last administered on 10/16/18 09:09; Admin Dose 10 MG; Start 10/07/18 at 11:30 Clindamycin HCl/ Dextrose 50 ml @ 50 mls/hr Q8 IVPB Last administered on 10/16/18 05:49; Admin Dose 50 MLS/HR; Start 10/07/18 at 14:00 Nystatin (Nystatin Cr) 1 applic TID TOP Last administered on 10/16/18 09:10; Admin Dose 1 APPLIC; Start 10/07/18 at 21:00 Ascorbic Acid (Vitamin C) 500 mg BID PO Last administered on 10/16/18 09:09; Admin Dose 500 MG; Start 10/13/18 at 21:00 Zinc Sulfate (Zinc Sulfate) 220 mg DAILY PO Last administered on 10/16/18 09:09; Admin Dose 220 MG; Start 10/14/18 at 09:00 Multivit/Ca Carb/ B Cmplx/FA/Prenat (Natalie-Carmen) 1 tab DAILY PO Last administered on 10/16/18 09:09; Admin Dose 1 TAB; Start 10/14/18 at 09:00 RAUL DIANA NP October 16, 2018 12:27
[2018-10-16 13:21] VITALS: BP 106/59; PULSE 65; RESP 17
--- NOTE | 2018-10-16 14:47 | PN ---
Date/Time of Note Date/Time of Note DATE: 10/16/18 TIME: 14:47 Assessment/Plan VTE Prophylaxis Risk score (from Nsg)>0 risk: 1 SCD applied (from Ns): Yes Pharmacological prophylaxis: NA/contraindicated Pharm contraindication: low risk/ambulating Lines/Catheters IV Catheter Type (from Nrsg): Peripheral IV Urinary Cath still in place: No Assessment/Plan Hospital Course SUBJECTIVE: Pain better controlled. OBJECTIVE: Physical Exam General: Adequately build 62 year-old female lying in bed in no apparent distr ess. HEENT: Normocephalic, atraumatic. Eyes: Anicteric sclerae, conjunctivae clear. ENT: Nasal septum midline, oral mucosa moist. Neck supple, no JVD noticed. Respiratory: Bilaterally clear breath sounds. No use of accessory muscles of respiration. No adventitious breath sounds. Cardiovascular: S1, S2 heard. Regular rate and rhythm. Abdomen: . Bowel sounds positive in all 4 quadrants. LLQ incision with packing in it. Wound bed clean with no purulent secretions. Genitourinary: Deferred. Extremities: No cyanosis, no clubbing, no edema. Peripheral pulses palpable. Neurologic: Cranial nerves II through XII grossly intact. The patient is awake, alert, and oriented. Skin (examined in the presence of a female alcohol still operator): Left breast incision with wound bed red and no purulent secretions. Labs & Vitals per chart ASSESSMENT & PLAN 62-year-old female with no significant past medical history, who was sent by her primary care physician because of an abscess on her left breast and abdomen, who was admitted to inpatient setting for further treatment and evaluation. 1. Left abdominal wall soft tissue infection. -Status post surgical debridement on 10/05/2018. -Cultures showing Staph aureus. -Continue antimicrobials as per ID. -Continue local wound care. 2. Left breast soft tissue infection/abscess. -Status post surgical debridement on 10/05/2018. -Cultures showing staph aureus -Continue local wound care. -Continue antimicrobials as per ID. 3. Left groin erythema. -Continue nystatin. 4. Fluids, electrolytes, and nutrition. -Regular diet. 5. DVT prophylaxis. -Bilateral SCDs. 6. Plan. -Continue antimicrobials as per ID. -Continue local wound care. -Pending [facility]. The patient needs home health to be arranged upon discharge. The patient was seen in collaboration with Dr. Brown. Exam/Review of Systems Exam Vitals Vital Signs Date Temp Pulse Resp B/P (MAP) Pulse Ox O2 O2 Flow FiO2 Time Delivery Rate 10/16/18 98.2 65 17 106/59 96 Room Air 13:21 (75) Intake and Output 10/15/18 10/15/18 10/16/18 1515:00 23:00 07:00 IntakeIntake Total 530 ml 100 ml BalanceBalance 530 ml 100 ml Medications Medication Current Medications IV Flush (NS 3 ml) 3 ml PER PROTOCOL IV ; Start 10/04/18 at 02:30 Acetaminophen (Tylenol Tab) 650 mg Q6H PRN PO .PAIN 1-3 OR TEMP; Start 10/04/18 at 02:30 Docusate Sodium (Colace) 100 mg Q12H PRN PO .CONSTIPATION; Start 10/04/18 at 02:30 Bisacodyl (Dulcolax) 5 mg DAILY PRN PO .CONSTIPATION; Start 10/04/18 at 02:30 Hydromorphone HCl (Dilaudid) 0.5 mg Q6H PRN IV PAIN LEVEL 6-10 Last administered on 10/16/18 01:41; Admin Dose 0.5 MG; Start 10/05/18 at 15:00 Acetaminophen/ Hydrocodone Bitart ([place] (5/325)) 1 tab Q6H PRN PO PAIN LEVEL 6-10 Last administered on 10/15/18 21:04; Admin Dose 1 TAB; Start 10/05/18 at 15:00 Ondansetron HCl (Zofran Inj) 4 mg Q6H PRN IV NAUSEA AND/OR VOMITING; Start 10/05/18 at 15:00 Acetaminophen/ Hydrocodone Bitart ([place] (5/325)) 1 tab Q6H PRN PO .MOD PAIN 4- 6 Last administered on 10/11/18 18:11; Admin Dose 1 TAB; Start 10/05/18 at 15:30 Diphenhydramine HCl (Benadryl) 25 mg Q6H PRN PO ITCHING Last administered on 10/10/18 21:02; Admin Dose 25 MG; Start 10/07/18 at 11:30 Loratadine (Claritin) 10 mg DAILY PO Last administered on 10/16/18 09:09; Admin Dose 10 MG; Start 10/07/18 at 11:30 Clindamycin HCl/ Dextrose 50 ml @ 50 mls/hr Q8 IVPB Last administered on 10/16/18 13:34; Admin Dose 50 MLS/HR; Start 10/07/18 at 14:00 Nystatin (Nystatin Cr) 1 applic TID TOP Last administered on 10/16/18 13:10; Admin Dose 1 APPLIC; Start 10/07/18 at 21:00 Ascorbic Acid (Vitamin C) 500 mg BID PO Last administered on 10/16/18 09:09; Admin Dose 500 MG; Start 10/13/18 at 21:00 Zinc Sulfate (Zinc Sulfate) 220 mg DAILY PO Last administered on 10/16/18 09:09; Admin Dose 220 MG; Start 10/14/18 at 09:00 Multivit/Ca Carb/ B Cmplx/FA/Prenat (Natalie-Carmen) 1 tab DAILY PO Last administered on 10/16/18 09:09; Admin Dose 1 TAB; Start 10/14/18 at 09:00 BÁRBARA CHANG NP October 16, 2018 14:47
[2018-10-16 19:41] VITALS: BP 110/55; PULSE 64; RESP 18
[2018-10-17 02:21] VITALS: BP 100/56; PULSE 58; RESP 18
[2018-10-17] MEDS: CLINDAMYCIN 900 MG/D5W (PMX) 50 ML IVPB SCH (05:57)
--- NOTE | 2018-10-17 07:45 | PN ---
Date/Time of Note Date/Time of Note DATE: 10/17/18 TIME: 07:45 Assessment/Plan VTE Prophylaxis Risk score (from Nsg)>0 risk: 1 SCD applied (from Ns): Yes Pharmacological prophylaxis: NA/contraindicated Pharm contraindication: low risk/ambulating Lines/Catheters IV Catheter Type (from Nrsg): Sal[place] Lock Urinary Cath still in place: No Assessment/Plan Hospital Course SUBJECTIVE: Pain better controlled. OBJECTIVE: Physical Exam General: Adequately build 62 year-old female lying in bed in no apparent distres s. HEENT: Normocephalic, atraumatic. Eyes: Anicteric sclerae, conjunctivae clear. ENT: Nasal septum midline, oral mucosa moist. Neck supple, no JVD noticed. Respiratory: Bilaterally clear breath sounds. No use of accessory muscles of respiration. No adventitious breath sounds. Cardiovascular: S1, S2 heard. Regular rate and rhythm. Abdomen: . Bowel sounds positive in all 4 quadrants. LLQ incision with packing in it. Wound bed clean with no purulent secretions. Genitourinary: Deferred. Extremities: No cyanosis, no clubbing, no edema. Peripheral pulses palpable. Neurologic: Cranial nerves II through XII grossly intact. The patient is awake, alert, and oriented. Skin (examined in the presence of a female key person): Left breast incision with wound bed red and no purulent secretions. Labs & Vitals per chart ASSESSMENT & PLAN 62-year-old female with no significant past medical history, who was sent by her primary care physician because of an abscess on her left breast and abdomen, who was admitted to inpatient setting for further treatment and evaluation. 1. Left abdominal wall soft tissue infection. -Status post surgical debridement on 10/05/2018. -Cultures showing Staph aureus. -Continue antimicrobials as per ID. -Continue local wound care. 2. Left breast soft tissue infection/abscess. -Status post surgical debridement on 10/05/2018. -Cultures showing staph aureus -Continue local wound care. -Continue antimicrobials as per ID. 3. Left groin erythema. -Continue nystatin. 4. Fluids, electrolytes, and nutrition. -Regular diet. 5. DVT prophylaxis. -Bilateral SCDs. 6. Plan. -Continue antimicrobials as per ID. -Continue local wound care. -Pending [facility]. The patient needs home health to be arranged upon discharge. The patient was seen in collaboration with Dr. Brown. Exam/Review of Systems Exam Vitals Vital Signs Date Temp Pulse Resp B/P (MAP) Pulse Ox O2 O2 Flow FiO2 Time Delivery Rate 10/17/18 98.0 58 18 100/56 97 02:21 (71) 10/16/18 Room Air 13:21 Intake and Output 10/16/18 10/16/18 10/17/18 1515:00 23:00 07:00 IntakeIntake Total 530 ml 450 ml 500 ml BalanceBalance 530 ml 450 ml 500 ml Medications Medication Current Medications IV Flush (NS 3 ml) 3 ml PER PROTOCOL IV ; Start 10/04/18 at 02:30 Acetaminophen (Tylenol Tab) 650 mg Q6H PRN PO .PAIN 1-3 OR TEMP; Start 10/04/18 at 02:30 Docusate Sodium (Colace) 100 mg Q12H PRN PO .CONSTIPATION; Start 10/04/18 at 02:30 Bisacodyl (Dulcolax) 5 mg DAILY PRN PO .CONSTIPATION; Start 10/04/18 at 02:30 Hydromorphone HCl (Dilaudid) 0.5 mg Q6H PRN IV PAIN LEVEL 6-10 Last administered on 10/16/18at 16:06; Admin Dose 0.5 MG; Start 10/05/18 at 15:00 Acetaminophen/ Hydrocodone Bitart ([place] (5/325)) 1 tab Q6H PRN PO PAIN LEVEL 6-10 Last administered on 10/15/18at 21:04; Admin Dose 1 TAB; Start 10/05/18 at 15:00 Ondansetron HCl (Zofran Inj) 4 mg Q6H PRN IV NAUSEA AND/OR VOMITING; Start at 15:00 Acetaminophen/ Hydrocodone Bitart ([place] (5/325)) 1 tab Q6H PRN PO .MOD PAIN 4- 6 Last administered on 10/11/18at 18:11; Admin Dose 1 TAB; Start 10/05/18 at 15:30 Diphenhydramine HCl (Benadryl) 25 mg Q6H PRN PO ITCHING Last administered on at 21:02; Admin Dose 25 MG; Start 10/07/18 at 11:30 Loratadine (Claritin) 10 mg DAILY PO Last administered on 10/16/18 09:09; Admin Dose 10 MG; Start 10/07/18 at 11:30 Clindamycin HCl/ Dextrose 50 ml @ 50 mls/hr Q8 IVPB Last administered on 9at 05:57; Admin Dose 50 MLS/HR; Start 10/07/18 at 14:00 Nystatin (Nystatin Cr) 1 applic TID TOP Last administered on 10/16/18 21:29; Admin Dose 1 APPLIC; Start 10/07/18 at 21:00 Ascorbic Acid (Vitamin C) 500 mg BID PO Last administered on 10/16/18 21:29; Admin Dose 500 MG; Start 10/13/18 at 21:00 Zinc Sulfate (Zinc Sulfate) 220 mg DAILY PO Last administered on 10/16/18 09:09; Admin Dose 220 MG; Start 10/14/18 at 09:00 Multivit/Ca Carb/ B Cmplx/FA/Prenat (Natalie-Carmen) 1 tab DAILY PO Last administered on 10/16/18 09:09; Admin Dose 1 TAB; Start 10/14/18 at 09:00 BÁRBARA CHANG NP October 17, 2018 07:45
[2018-10-17 08:25] VITALS: BP 107/61; PULSE 62; RESP 20
[2018-10-17] MEDS: ASCORBIC ACID 500 MG TAB PO SCH ×2 (10:09→21:12)
[2018-10-17] MEDS: LORATADINE 10 MG TAB PO SCH (10:09)
[2018-10-17] MEDS: ZINC SULFATE 220 MG CAP PO SCH (10:09)
[2018-10-17] MEDS: MULTIVIT/CA CARB/B CMPLX/FA TAB PO SCH (10:09)
[2018-10-17] MEDS: NYSTATIN 15 GM CR TOP SCH ×3 (10:12→21:12)
[2018-10-17] MEDS: HYDROmorphONE 0.5 MG/0.5 ML SYG IV PRN ×2 (10:26→22:54)
--- NOTE | 2018-10-17 13:14 | CONS ---
Assessment/Plan Assessment/Plan Hospital Course (Demo Recall) Alert, feels good Antimicrobials: Clindamycin Intraoperative culture growing staph aureus left breast drainage culture grew oxacillin sensitive staph aureus Physical examination: Well-developed elderly woman who is alert in no distress head atraumatic normocephalic neck is supple chest rise symmetrical breath sounds clear heart: S1-S2 abdomen soft bowel sounds present. Assessment: 1. Left abdominal wall and left lateral breast soft tissue infection with abscess, status post I&D Plan: Wounds look better, change abx to oral Doxycycline Consultation Date/Type/Reason Admit Date/Time October 04, 2018 at 23:07 Initial Consult Date 10/05/18 Type of Consult id Requesting Provider: ROGERIO NUNN Date/Time of Note DATE: 10/17/18 TIME: 13:13 Exam/Review of Systems Exam Vitals Vital Signs Date Temp Pulse Resp B/P (MAP) Pulse Ox O2 O2 Flow FiO2 Time Delivery Rate 10/17/18 98.3 62 20 107/61 96 08:25 (76) 10/16/18 Room Air 13:21 Intake and Output 10/16/18 10/16/18 10/17/18 1515:00 23:00 07:00 IntakeIntake Total 530 ml 450 ml 500 ml BalanceBalance 530 ml 450 ml 500 ml Medications Medication Current Medications IV Flush (NS 3 ml) 3 ml PER PROTOCOL IV ; Start 10/04/18 at 02:30 Acetaminophen (Tylenol Tab) 650 mg Q6H PRN PO .PAIN 1-3 OR TEMP; Start 10/04/18 at 02:30 Docusate Sodium (Colace) 100 mg Q12H PRN PO .CONSTIPATION; Start 10/04/18 at 02:30 Bisacodyl (Dulcolax) 5 mg DAILY PRN PO .CONSTIPATION; Start 10/04/18 at 02:30 Hydromorphone HCl (Dilaudid) 0.5 mg Q6H PRN IV PAIN LEVEL 6-10 Last administered on 10/17/18at 10:26; Admin Dose 0.5 MG; Start 10/05/18 at 15:00 Acetaminophen/ Hydrocodone Bitart ([place] (5/325)) 1 tab Q6H PRN PO PAIN LEVEL 6-10 Last administered on 10/15/18at 21:04; Admin Dose 1 TAB; Start 10/05/18 at 15:00 Ondansetron HCl (Zofran Inj) 4 mg Q6H PRN IV NAUSEA AND/OR VOMITING; Start 10/05/18 at 15:00 Acetaminophen/ Hydrocodone Bitart ([place] (5/325)) 1 tab Q6H PRN PO .MOD PAIN 4- 6 Last administered on 10/11/18 18:11; Admin Dose 1 TAB; Start 10/05/18 at 15:30 Diphenhydramine HCl (Benadryl) 25 mg Q6H PRN PO ITCHING Last administered on 10/10/18 21:02; Admin Dose 25 MG; Start 10/07/18 at 11:30 Loratadine (Claritin) 10 mg DAILY PO Last administered on 10/17/18 10:09; Admin Dose 10 MG; Start 10/07/18 at 11:30 Clindamycin HCl/ Dextrose 50 ml @ 50 mls/hr Q8 IVPB Last administered on 10/17/18 05:57; Admin Dose 50 MLS/HR; Start 10/07/18 at 14:00 Nystatin (Nystatin Cr) 1 applic TID TOP Last administered on 10/17/18 10:12; Admin Dose 1 APPLIC; Start 10/07/18 at 21:00 Ascorbic Acid (Vitamin C) 500 mg BID PO Last administered on 10/17/18 10:09; Admin Dose 500 MG; Start 10/13/18 at 21:00 Zinc Sulfate (Zinc Sulfate) 220 mg DAILY PO Last administered on 10/17/18 10:09; Admin Dose 220 MG; Start 10/14/18 at 09:00 Multivit/Ca Carb/ B Cmplx/FA/Prenat (Natalie-Carmen) 1 tab DAILY PO Last administered on 10/17/18 10:09; Admin Dose 1 TAB; Start 10/14/18 at 09:00 RAUL DIANA NP October 17, 2018 13:14
[2018-10-17 14:50] VITALS: BP 111/60; PULSE 65; RESP 18
[2018-10-17 20:23] VITALS: BP 107/63; PULSE 73; RESP 16
[2018-10-17] MEDS: DOXYCYCLINE 100 MG TAB PO SCH (21:13)
[2018-10-18 02:05] VITALS: BP 102/59; PULSE 60; RESP 16
[2018-10-18 07:43] VITALS: BP 141/70; PULSE 92; RESP 18
[2018-10-18 08:31] VITALS: BP 121/65; PULSE 66; RESP 20
[2018-10-18] MEDS: ZINC SULFATE 220 MG CAP PO SCH (09:15)
[2018-10-18] MEDS: DOXYCYCLINE 100 MG TAB PO SCH ×2 (09:16→20:19)
[2018-10-18] MEDS: MULTIVIT/CA CARB/B CMPLX/FA TAB PO SCH (09:16)
[2018-10-18] MEDS: HYDROCODONE/APAP (5/325) TAB PO PRN ×2 (09:16→20:26)
[2018-10-18] MEDS: NYSTATIN 15 GM CR TOP SCH ×3 (09:16→20:19)
[2018-10-18] MEDS: ASCORBIC ACID 500 MG TAB PO SCH ×2 (09:16→20:19)
[2018-10-18] MEDS: LORATADINE 10 MG TAB PO SCH (09:16)
--- NOTE | 2018-10-18 12:47 | CONS ---
Assessment/Plan Assessment/Plan Hospital Course (Demo Recall) No events. Sleeping, looks comfortable Antimicrobials: Doxycycline Intraoperative culture growing staph aureus left breast drainage culture grew oxacillin sensitive staph aureus Physical examination: Well-developed elderly woman who is alert in no distress head atraumatic normocephalic neck is supple chest rise symmetrical breath sounds clear heart: S1-S2 abdomen soft bowel sounds present. Assessment: 1. Left abdominal wall and left lateral breast soft tissue infection with abscess, status post I&D Plan: Stable, will add Rifampin,l continue Doxy, local wound care Consultation Date/Type/Reason Admit Date/Time October 04, 2018 at 23:07 Initial Consult Date 10/05/18 Type of Consult id Requesting Provider: ROGERIO NUNN Date/Time of Note DATE: 10/18/18 TIME: 12:46 Exam/Review of Systems Exam Vitals Vital Signs Date Temp Pulse Resp B/P (MAP) Pulse Ox O2 O2 Flow FiO2 Time Delivery Rate 10/18/18 98.2 66 20 121/65 97 08:31 (83) 10/16/18 Room Air 13:21 Intake and Output 10/17/18 10/17/18 10/18/18 1515:00 23:00 07:00 IntakeIntake Total 480 ml 960 ml BalanceBalance 480 ml 960 ml Medications Medication Current Medications IV Flush (NS 3 ml) 3 ml PER PROTOCOL IV ; Start 10/04/18 at 02:30 Acetaminophen (Tylenol Tab) 650 mg Q6H PRN PO .PAIN 1-3 OR TEMP; Start 10/04/18 at 02:30 Docusate Sodium (Colace) 100 mg Q12H PRN PO .CONSTIPATION; Start 10/04/18 at 02:30 Bisacodyl (Dulcolax) 5 mg DAILY PRN PO .CONSTIPATION; Start 10/04/18 at 02:30 Hydromorphone HCl (Dilaudid) 0.5 mg Q6H PRN IV PAIN LEVEL 6-10 Last admini stered on 10/17/18at 22:54; Admin Dose 0.5 MG; Start 10/05/18 at 15:00 Acetaminophen/ Hydrocodone Bitart ([place] (5/325)) 1 tab Q6H PRN PO PAIN LEVEL 6-10 Last administered on 10/18/18at 09:16; Admin Dose 1 TAB; Start 10/05/18 at 15:00 Ondansetron HCl (Zofran Inj) 4 mg Q6H PRN IV NAUSEA AND/OR VOMITING; Start 10/05/18 at 15:00 Acetaminophen/ Hydrocodone Bitart ([place] (5/325)) 1 tab Q6H PRN PO .MOD PAIN 4- 6 Last administered on 10/11/18 18:11; Admin Dose 1 TAB; Start 10/05/18 at 15:30 Diphenhydramine HCl (Benadryl) 25 mg Q6H PRN PO ITCHING Last administered on 10/10/18 21:02; Admin Dose 25 MG; Start 10/07/18 at 11:30 Loratadine (Claritin) 10 mg DAILY PO Last administered on 10/18/18 09:16; Admin Dose 10 MG; Start 10/07/18 at 11:30 Nystatin (Nystatin Cr) 1 applic TID TOP Last administered on 10/18/18 09:16; Admin Dose 1 APPLIC; Start 10/07/18 at 21:00 Ascorbic Acid (Vitamin C) 500 mg BID PO Last administered on 10/18/18 09:16; Admin Dose 500 MG; Start 10/13/18 at 21:00 Zinc Sulfate (Zinc Sulfate) 220 mg DAILY PO Last administered on 10/18/18 09:15; Admin Dose 220 MG; Start 10/14/18 at 09:00 Multivit/Ca Carb/ B Cmplx/FA/Prenat (Natalie-Carmen) 1 tab DAILY PO Last administered on 10/18/18 09:16; Admin Dose 1 TAB; Start 10/14/18 at 09:00 Doxycycline Hyclate (Vibramycin) 100 mg BID PO Last administered on 10/18/18 09:16; Admin Dose 100 MG; Start 10/17/18 at 21:00 RAUL DIANA NP October 18, 2018 12:47
[2018-10-18] MEDS: RIFAMPIN 300 MG CAP PO SCH (14:34)
[2018-10-18 15:03] VITALS: BP 127/70; PULSE 67; RESP 18
--- NOTE | 2018-10-18 15:12 | PN ---
Date/Time of Note Date/Time of Note DATE: 10/18/18 TIME: 15:12 Assessment/Plan VTE Prophylaxis Risk score (from Nsg)>0 risk: 1 SCD applied (from Nsg): Yes Pharmacological prophylaxis: NA/contraindicated Pharm contraindication: low risk/ambulating Lines/Catheters IV Catheter Type (from Nrsg): Saline Lock Urinary Cath still in place: No Assessment/Plan Hospital Course SUBJECTIVE: Pain better controlled. OBJECTIVE: Physical Exam General: Adequately build 62 year-old female lying in bed in no apparent distres s. HEENT: Normocephalic, atraumatic. Eyes: Anicteric sclerae, conjunctivae clear. ENT: Nasal septum midline, oral mucosa moist. Neck supple, no JVD noticed. Respiratory: Bilaterally clear breath sounds. No use of accessory muscles of respiration. No adventitious breath sounds. Cardiovascular: S1, S2 heard. Regular rate and rhythm. Abdomen: . Bowel sounds positive in all 4 quadrants. LLQ incision with packing in it. Wound bed clean with no purulent secretions. Genitourinary: Deferred. Extremities: No cyanosis, no clubbing, no edema. Peripheral pulses palpable. Neurologic: Cranial nerves II through XII grossly intact. The patient is awake, alert, and oriented. Skin (examined in the presence of a female mineral ore processing labourer): Left breast incision with wound bed red and no purulent secretions. Labs & Vitals per chart ASSESSMENT & PLAN 62-year-old female with no significant past medical history, who was sent by her primary care physician because of an abscess on her left breast and abdomen, who was admitted to inpatient setting for further treatment and evaluation. 1. Left abdominal wall soft tissue infection. -Status post surgical debridement on 10/05/2018. -Cultures showing Staph aureus. -Continue antimicrobials as per ID. -Continue local wound care. 2. Left breast soft tissue infection/abscess. -Status post surgical debridement on 10/05/2018. -Cultures showing staph aureus -Continue local wound care. -Continue antimicrobials as per ID. 3. Left groin erythema. -Continue nystatin. 4. Fluids, electrolytes, and nutrition. -Regular diet. 5. DVT prophylaxis. -Bilateral SCDs. 6. Plan. -Continue antimicrobials as per ID. -Continue local wound care. -Pending [facility]. The patient needs home health to be arranged upon discharge. The patient was seen in collaboration with Dr. Brown. Exam/Review of Systems Exam Vitals Vital Signs Date Temp Pulse Resp B/P (MAP) Pulse Ox O2 O2 Flow FiO2 Time Delivery Rate 10/18/18 97.8 67 18 127/70 97 15:03 (89) 10/16/18 Room Air 13:21 Intake and Output 10/17/18 10/17/18 10/18/18 1515:00 23:00 07:00 IntakeIntake Total 480 ml 960 ml BalanceBalance 480 ml 960 ml Medications Medication Current Medications IV Flush (NS 3 ml) 3 ml PER PROTOCOL IV ; Start 10/04/18 at 02:30 Acetaminophen (Tylenol Tab) 650 mg Q6H PRN PO .PAIN 1-3 OR TEMP; Start 10/04/18 at 02:30 Docusate Sodium (Colace) 100 mg Q12H PRN PO .CONSTIPATION; Start 10/04/18 at 02:30 Bisacodyl (Dulcolax) 5 mg DAILY PRN PO .CONSTIPATION; Start 10/04/18 at 02:30 Hydromorphone HCl (Dilaudid) 0.5 mg Q6H PRN IV PAIN LEVEL 6-10 Last administered on 10/17/18 22:54; Admin Dose 0.5 MG; Start 10/05/18 at 15:00 Acetaminophen/ Hydrocodone Bitart ([place] (5/325)) 1 tab Q6H PRN PO PAIN LEVEL 6-10 Last administered on 10/18/18 09:16; Admin Dose 1 TAB; Start 10/05/18 at 15:00 Ondansetron HCl (Zofran Inj) 4 mg Q6H PRN IV NAUSEA AND/OR VOMITING; Start 10/05/18 at 15:00 Acetaminophen/ Hydrocodone Bitart ([place] (5/325)) 1 tab Q6H PRN PO .MOD PAIN 4- 6 Last administered on 10/11/18 18:11; Admin Dose 1 TAB; Start 10/05/18 at 15:30 Diphenhydramine HCl (Benadryl) 25 mg Q6H PRN PO ITCHING Last administered on 10/10/18 21:02; Admin Dose 25 MG; Start 10/07/18 at 11:30 Loratadine (Claritin) 10 mg DAILY PO Last administered on 10/18/18 09:16; Admin Dose 10 MG; Start 10/07/18 at 11:30 Nystatin (Nystatin Cr) 1 applic TID TOP Last administered on 10/18/18 14:34; Admin Dose 1 APPLIC; Start 10/07/18 at 21:00 Ascorbic Acid (Vitamin C) 500 mg BID PO Last administered on 10/18/18 09:16; Admin Dose 500 MG; Start 10/13/18 at 21:00 Zinc Sulfate (Zinc Sulfate) 220 mg DAILY PO Last administered on 10/18/18 09:15; Admin Dose 220 MG; Start 10/14/18 at 09:00 Multivit/Ca Carb/ B Cmplx/FA/Prenat (Natalie-Carmen) 1 tab DAILY PO Last administered on 10/18/18 09:16; Admin Dose 1 TAB; Start 10/14/18 at 09:00 Doxycycline Hyclate (Vibramycin) 100 mg BID PO Last administered on 10/18/18 09:16; Admin Dose 100 MG; Start 10/17/18 at 21:00 Rifampin (Rifampin) 600 mg DAILY PO Last administered on 10/18/18 14:34; Admin Dose 600 MG; Start 10/18/18 at 13:30 BÁRBARA CHANG NP October 18, 2018 15:12
[2018-10-18] MEDS: HYDROmorphONE 0.5 MG/0.5 ML SYG IV PRN (17:17)
[2018-10-18 19:37] VITALS: BP 124/75; PULSE 68; RESP 18
[2018-10-19 02:17] VITALS: BP 120/66; PULSE 54; RESP 16
[2018-10-19 07:21] VITALS: BP 116/63; PULSE 69; RESP 16
[2018-10-19] MEDS: ZINC SULFATE 220 MG CAP PO SCH (08:32)
[2018-10-19] MEDS: DOXYCYCLINE 100 MG TAB PO SCH ×2 (08:32→20:25)
[2018-10-19] MEDS: RIFAMPIN 300 MG CAP PO SCH (08:32)
[2018-10-19] MEDS: LORATADINE 10 MG TAB PO SCH (08:32)
[2018-10-19] MEDS: MULTIVIT/CA CARB/B CMPLX/FA TAB PO SCH (08:32)
[2018-10-19] MEDS: ASCORBIC ACID 500 MG TAB PO SCH ×2 (08:32→20:25)
[2018-10-19] MEDS: NYSTATIN 15 GM CR TOP SCH ×3 (08:32→20:25)
[2018-10-19] MEDS: HYDROmorphONE 0.5 MG/0.5 ML SYG IV PRN (10:33)
[2018-10-19 13:49] VITALS: BP 96/64; PULSE 72; RESP 16
--- NOTE | 2018-10-19 14:38 | CONS ---
Consultation Date/Type/Reason Admit Date/Time October 04, 2018 at 23:07 Initial Consult Date SUBJECTIVE: Pt is awake, alert, afebrile, resting in bed. Looks comfortable. VS: stable T: 98.4 LABS: Reviewed. Antimicrobials: Doxycycline and Vanco Intraoperative culture growing staph aureus left breast drainage culture grew oxacillin sensitive staph aureus Physical examination: GEN: Well-developed elderly woman who is alert in no distress HENT: head atraumatic normocephalic; neck is supple PULM: chest rise symmetrical breath sounds clear Heart: S1-S2 Abdomen: soft, bowel sounds present. Assessment: 1. Left abdominal wall and left lateral breast soft tissue infection with abscess, status post I&D Plan: Patient is stable. Continue with current antbx treatment and local wound care. Requesting Provider: ROGERIO NUNN Date/Time of Note DATE: 10/19/18 TIME: 14:35 Exam/Review of Systems Exam Vitals Vital Signs Date Temp Pulse Resp B/P (MAP) Pulse Ox O2 O2 Flow FiO2 Time Delivery Rate 10/19/18 98.4 72 16 96/64 (75) 97 13:49 10/16/18 Room Air 13:21 Intake and Output 10/18/18 10/18/18 10/19/18 1515:00 23:00 07:00 IntakeIntake Total 400 ml 480 ml BalanceBalance 400 ml 480 ml Medications Medication Current Medications IV Flush (NS 3 ml) 3 ml PER PROTOCOL IV ; Start 10/04/18 at 02:30 Acetaminophen (Tylenol Tab) 650 mg Q6H PRN PO .PAIN 1-3 OR TEMP; Start 10/04/18 at 02:30 Docusate Sodium (Colace) 100 mg Q12H PRN PO .CONSTIPATION; Start 10/04/18 at 02:30 Bisacodyl (Dulcolax) 5 mg DAILY PRN PO .CONSTIPATION; Start 10/04/18 at 02:30 Hydromorphone HCl (Dilaudid) 0.5 mg Q6H PRN IV PAIN LEVEL 6-10 Last administered on 10/19/18at 10:33; Admin Dose 0.5 MG; Start 10/05/18 at 15:00 Acetaminophen/ Hydrocodone Bitart ([place] (5/325)) 1 tab Q6H PRN PO PAIN LEVEL 6-10 Last administered on 10/18/18 20:26; Admin Dose 1 TAB; Start 10/05/18 at 15:00 Ondansetron HCl (Zofran Inj) 4 mg Q6H PRN IV NAUSEA AND/OR VOMITING; Start 10/05/18 at 15:00 Acetaminophen/ Hydrocodone Bitart ([place] (5/325)) 1 tab Q6H PRN PO .MOD PAIN 4- 6 Last administered on 10/11/18 18:11; Admin Dose 1 TAB; Start 10/05/18 at 15:30 Diphenhydramine HCl (Benadryl) 25 mg Q6H PRN PO ITCHING Last administered on 10/10/18 21:02; Admin Dose 25 MG; Start 10/07/18 at 11:30 Loratadine (Claritin) 10 mg DAILY PO Last administered on 10/19/18 08:32; Admin Dose 10 MG; Start 10/07/18 at 11:30 Nystatin (Nystatin Cr) 1 applic TID TOP Last administered on 10/19/18 08:32; Admin Dose 1 APPLIC; Start 10/07/18 at 21:00 Ascorbic Acid (Vitamin C) 500 mg BID PO Last administered on 10/19/18 08:32; Admin Dose 500 MG; Start 10/13/18 at 21:00 Zinc Sulfate (Zinc Sulfate) 220 mg DAILY PO Last administered on 10/19/18 08:32; Admin Dose 220 MG; Start 10/14/18 at 09:00 Multivit/Ca Carb/ B Cmplx/FA/Prenat (Natalie-Carmen) 1 tab DAILY PO Last ad ministered on 10/19/18 08:32; Admin Dose 1 TAB; Start 10/14/18 at 09:00 Doxycycline Hyclate (Vibramycin) 100 mg BID PO Last administered on 10/19/18 08:32; Admin Dose 100 MG; Start 10/17/18 at 21:00 Rifampin (Rifampin) 600 mg DAILY PO Last administered on 10/19/18 08:32; Admin Dose 600 MG; Start 10/18/18 at 13:30 LIZZY CORRIGAN Oct 19, 2018 14:38
--- NOTE | 2018-10-19 15:22 | PN ---
Date/Time of Note Date/Time of Note DATE: 10/19/18 TIME: 15:22 Assessment/Plan VTE Prophylaxis Risk score (from Nsg)>0 risk: 1 SCD applied (from Nsg): Yes Pharmacological prophylaxis: NA/contraindicated Pharm contraindication: low risk/ambulating Lines/Catheters IV Catheter Type (from Nrsg): Saline Lock Urinary Cath still in place: No Assessment/Plan Hospital Course SUBJECTIVE: Pain better controlled. OBJECTIVE: Physical Exam General: Adequately build 62 year-old female lying in bed in no apparent distress. HEENT: Normocephalic, atraumatic. Eyes: Anicteric sclerae, conjunctivae clear. ENT: Nasal septum midline, oral mucosa moist. Neck supple, no JVD noticed. Respiratory: Bilaterally clear breath sounds. No use of accessory muscles of respiration. No adventitious breath sounds. Cardiovascular: S1, S2 heard. Regular rate and rhythm. Abdomen: . Bowel sounds positive in all 4 quadrants. LLQ incision with packing in it. Wound bed clean with no purulent secretions. Genitourinary: Deferred. Extremities: No cyanosis, no clubbing, no edema. Peripheral pulses palpable. Neurologic: Cranial nerves II through XII grossly intact. The patient is awake, alert, and oriented. Skin (examined in the presence of a female vp analysis): Left breast incision with wound bed red and no purulent secretions. Labs & Vitals per chart ASSESSMENT & PLAN 62-year-old female with no significant past medical history, who was sent by her primary care physician because of an abscess on her left breast and abdomen, who was admitted to inpatient setting for further treatment and evaluation. 1. Left abdominal wall soft tissue infection. -Status post surgical debridement on 10/05/2018. -Cultures showing Staph aureus. -Continue antimicrobials as per ID. -Continue local wound care. 2. Left breast soft tissue infection/abscess. -Status post surgical debridement on 10/05/2018. -Cultures showing staph aureus -Continue local wound care. -Continue antimicrobials as per ID. 3. Left groin erythema. -Continue nystatin. 4. Fluids, electrolytes, and nutrition. -Regular diet. 5. DVT prophylaxis. -Bilateral SCDs. 6. Plan. -Continue antimicrobials as per ID. -Continue local wound care. -Pending [facility]. The patient needs home health to be arranged upon discharge. The patient was seen in collaboration with Dr. Dang. Exam/Review of Systems Exam Vitals Vital Signs Date Temp Pulse Resp B/P (MAP) Pulse Ox O2 O2 Flow FiO2 Time Delivery Rate 10/19/18 98.4 72 16 96/64 (75) 97 13:49 10/16/18 Room Air 13:21 Intake and Output 10/18/18 10/18/18 10/19/18 1515:00 23:00 07:00 IntakeIntake Total 400 ml 480 ml BalanceBalance 400 ml 480 ml Medications Medication Current Medications IV Flush (NS 3 ml) 3 ml PER PROTOCOL IV ; Start 10/04/18 at 02:30 Acetaminophen (Tylenol Tab) 650 mg Q6H PRN PO .PAIN 1-3 OR TEMP; Start 10/04/18 at 02:30 Docusate Sodium (Colace) 100 mg Q12H PRN PO .CONSTIPATION; Start 10/04/18 at 02:30 Bisacodyl (Dulcolax) 5 mg DAILY PRN PO .CONSTIPATION; Start 10/04/18 at 02:30 Hydromorphone HCl (Dilaudid) 0.5 mg Q6H PRN IV PAIN LEVEL 6-10 Last administered on 10/19/18at 10:33; Admin Dose 0.5 MG; Start 10/05/18 at 15:00 Acetaminophen/ Hydrocodone Bitart ([place] (5/325)) 1 tab Q6H PRN PO PAIN LEVEL 6-10 Last administered on 10/18/18at 20:26; Admin Dose 1 TAB; Start 10/05/18 at 15:00 Ondansetron HCl (Zofran Inj) 4 mg Q6H PRN IV NAUSEA AND/OR VOMITING; Start 10/05/18 at 15:00 Acetaminophen/ Hydrocodone Bitart ([place] (5/325)) 1 tab Q6H PRN PO .MOD PAIN 4- 6 Last administered on 10/11/18at 18:11; Admin Dose 1 TAB; Start 10/05/18 at 15:30 Diphenhydramine HCl (Benadryl) 25 mg Q6H PRN PO ITCHING Last administered on 10/10/18at 21:02; Admin Dose 25 MG; Start 10/07/18 at 11:30 Loratadine (Claritin) 10 mg DAILY PO Last administered on 10/19/18at 08:32; Admin Dose 10 MG; Start 10/07/18 at 11:30 Nystatin (Nystatin Cr) 1 applic TID TOP Last administered on 10/19/18 08:32; Admin Dose 1 APPLIC; Start 10/07/18 at 21:00 Ascorbic Acid (Vitamin C) 500 mg BID PO Last administered on 10/19/18 08:32; Admin Dose 500 MG; Start 10/13/18 at 21:00 Zinc Sulfate (Zinc Sulfate) 220 mg DAILY PO Last administered on 10/19/18 08:32; Admin Dose 220 MG; Start 10/14/18 at 09:00 Multivit/Ca Carb/ B Cmplx/FA/Prenat (Natalie-Carmen) 1 tab DAILY PO Last administered on 10/19/18 08:32; Admin Dose 1 TAB; Start 10/14/18 at 09:00 Doxycycline Hyclate (Vibramycin) 100 mg BID PO Last administered on 10/19/18 08:32; Admin Dose 100 MG; Start 10/17/18 at 21:00 Rifampin (Rifampin) 600 mg DAILY PO Last administered on 10/19/18 08:32; Admin Dose 600 MG; Start 10/18/18 at 13:30 BÁRBARA CHANG NP Oct 19, 2018 15:22
[2018-10-19 20:00] VITALS: BP 102/57; PULSE 70; RESP 18
[2018-10-19] MEDS: HYDROCODONE/APAP (5/325) TAB PO PRN (20:32)
[2018-10-20 02:00] VITALS: BP 99/55; PULSE 94; RESP 18
[2018-10-20 07:39] VITALS: BP 107/65; PULSE 82; RESP 16
[2018-10-20] MEDS: ASCORBIC ACID 500 MG TAB PO SCH ×2 (08:41→20:46)
[2018-10-20] MEDS: DOXYCYCLINE 100 MG TAB PO SCH ×2 (08:41→20:46)
[2018-10-20] MEDS: RIFAMPIN 300 MG CAP PO SCH (08:41)
[2018-10-20] MEDS: MULTIVIT/CA CARB/B CMPLX/FA TAB PO SCH (08:41)
[2018-10-20] MEDS: LORATADINE 10 MG TAB PO SCH (08:41)
[2018-10-20] MEDS: ZINC SULFATE 220 MG CAP PO SCH (08:41)
[2018-10-20] MEDS: NYSTATIN 15 GM CR TOP SCH ×2 (08:42→13:26)
--- NOTE | 2018-10-20 12:57 | PN ---
Date/Time of Note Date/Time of Note DATE: 10/20/18 TIME: 12:57 Assessment/Plan VTE Prophylaxis Risk score (from Ns)>0 risk: 1 SCD applied (from [facility]): No SCD contraindicated: other Pharmacological prophylaxis: NA/contraindicated Pharm contraindication: low risk/ambulating Lines/Catheters IV Catheter Type (from [facility] Saline Lock Urinary Cath still in place: No Assessment/Plan Hospital Course SUBJECTIVE: Pain better controlled. OBJECTIVE: Physical Exam General: Adequately build 62 year-old female lying in bed in no apparent distress. HEENT: Normocephalic, atraumatic. Eyes: Anicteric sclerae, conjunctivae clear. ENT: Nasal septum midline, oral mucosa moist. Neck supple, no JVD noticed. Respiratory: Bilaterally clear breath sounds. No use of accessory muscles of respiration. No adventitious breath sounds. Cardiovascular: S1, S2 heard. Regular rate and rhythm. Abdomen: . Bowel sounds positive in all 4 quadrants. LLQ incision with packing in it. Wound bed clean with no purulent secretions. Genitourinary: Deferred. Extremities: No cyanosis, no clubbing, no edema. Peripheral pulses palpable. Neurologic: Cranial nerves II through XII grossly intact. The patient is awake, alert, and oriented. Skin (examined in the presence of a female printing sign machine operator): Left breast incision with wound bed red and no purulent secretions. Labs & Vitals per chart ASSESSMENT & PLAN 62-year-old female with no significant past medical history, who was sent by her primary care physician because of an abscess on her left breast and abdomen, who was admitted to inpatient setting for further treatment and evaluation. 1. Left abdominal wall soft tissue infection. -Status post surgical debridement on 10/05/2018. -Cultures showing Staph aureus. -Continue antimicrobials as per ID. -Continue local wound care. 2. Left breast soft tissue infection/abscess. -Status post surgical debridement on 10/05/2018. -Cultures showing staph aureus -Continue local wound care. -Continue antimicrobials as per ID. 3. Left groin erythema. -Resolved -Discontinue nystatin. 4. Fluids, electrolytes, and nutrition. -Regular diet. 5. DVT prophylaxis. -Bilateral SCDs. 6. Plan. -Continue antimicrobials as per ID. -Continue local wound care. -Pending [facility]. The patient needs home health to be arranged upon discharge. The patient was seen in collaboration with Dr. Dang. Exam/Review of Systems Exam Vitals Vital Signs Date Temp Pulse Resp B/P (MAP) Pulse Ox O2 O2 Flow FiO2 Time Delivery Rate 10/20/18 98.2 82 16 107/65 98 07:39 (79) 10/16/18 Room Air 13:21 Intake and Output 10/19/18 10/19/18 10/20/18 1515:00 23:00 07:00 IntakeIntake Total 780 ml 600 ml 120 ml BalanceBalance 780 ml 600 ml 120 ml Medications Medication Current Medications IV Flush (NS 3 ml) 3 ml PER PROTOCOL IV ; Start 10/04/18 at 02:30 Acetaminophen (Tylenol Tab) 650 mg Q6H PRN PO .PAIN 1-3 OR TEMP; Start 10/04/18 at 02:30 Docusate Sodium (Colace) 100 mg Q12H PRN PO .CONSTIPATION; Start 10/04/18 at 02:30 Bisacodyl (Dulcolax) 5 mg DAILY PRN PO .CONSTIPATION; Start 10/04/18 at 02:30 Hydromorphone HCl (Dilaudid) 0.5 mg Q6H PRN IV PAIN LEVEL 6-10 Last admi nistered on 10/19/18at 10:33; Admin Dose 0.5 MG; Start 10/05/18 at 15:00 Acetaminophen/ Hydrocodone Bitart ([place] (5/325)) 1 tab Q6H PRN PO PAIN LEVEL 6-10 Last administered on 10/19/18at 20:32; Admin Dose 1 TAB; Start 10/05/18 at 15:00 Ondansetron HCl (Zofran Inj) 4 mg Q6H PRN IV NAUSEA AND/OR VOMITING; Start 10/05/18 at 15:00 Acetaminophen/ Hydrocodone Bitart ([place] (5/325)) 1 tab Q6H PRN PO .MOD PAIN 4- 6 Last administered on 10/11/18at 18:11; Admin Dose 1 TAB; Start 10/05/18 at 15:30 Diphenhydramine HCl (Benadryl) 25 mg Q6H PRN PO ITCHING Last administered on 10/10/18at 21:02; Admin Dose 25 MG; Start 10/07/18 at 11:30 Loratadine (Claritin) 10 mg DAILY PO Last administered on 10/20/18 08:41; Admin Dose 10 MG; Start 10/07/18 at 11:30 Nystatin (Nystatin Cr) 1 applic TID TOP Last administered on 10/20/18 08:42; Admin Dose 1 APPLIC; Start 10/07/18 at 21:00 Ascorbic Acid (Vitamin C) 500 mg BID PO Last administered on 10/20/18 08:41; Admin Dose 500 MG; Start 10/13/18 at 21:00 Zinc Sulfate (Zinc Sulfate) 220 mg DAILY PO Last administered on 10/20/18 08:41; Admin Dose 220 MG; Start 10/14/18 at 09:00 Multivit/Ca Carb/ B Cmplx/FA/Prenat (Natalie-Carmen) 1 tab DAILY PO Last administered on 10/20/18 08:41; Admin Dose 1 TAB; Start 10/14/18 at 09:00 Doxycycline Hyclate (Vibramycin) 100 mg BID PO Last administered on 10/20/18 08:41; Admin Dose 100 MG; Start 10/17/18 at 21:00 Rifampin (Rifampin) 600 mg DAILY PO Last administered on 10/20/18 08:41; Admin Dose 600 MG; Start 10/18/18 at 13:30 BÁRBARA CHANG NP Oct 20, 2018 12:57
--- NOTE | 2018-10-20 14:23 | CONS ---
Assessment/Plan Assessment/Plan Hospital Course (Demo Recall) No events. Antimicrobials: Doxycycline Rifampin Intraoperative culture growing staph aureus left breast drainage culture grew oxacillin sensitive staph aureus Physical examination: Well-developed elderly woman who is alert in no distress head atraumatic normocephalic neck is supple chest rise symmetrical breath sounds clear heart: S1-S2 abdomen soft bowel sounds present. Assessment: 1. Left abdominal wall and left lateral breast soft tissue infection with abscess, status post I&D Plan: Stable, continue abx/ local wound care Consultation Date/Type/Reason Admit Date/Time October 04, 2018 at 23:07 Initial Consult Date 10/05/18 Type of Consult id Requesting Provider: ROGERIO NUNN Date/Time of Note DATE: 10/20/18 TIME: 14:23 Exam/Review of Systems Exam Vitals Vital Signs Date Temp Pulse Resp B/P (MAP) Pulse Ox O2 O2 Flow FiO2 Time Delivery Rate 10/20/18 98.2 82 16 107/65 98 07:39 (79) 10/16/18 Room Air 13:21 Intake and Output 10/19/18 10/19/18 10/20/18 1515:00 23:00 07:00 IntakeIntake Total 780 ml 600 ml 120 ml BalanceBalance 780 ml 600 ml 120 ml Medications Medication Current Medications IV Flush (NS 3 ml) 3 ml PER PROTOCOL IV ; Start 10/04/18 at 02:30 Acetaminophen (Tylenol Tab) 650 mg Q6H PRN PO .PAIN 1-3 OR TEMP; Start 10/04/18 at 02:30 Docusate Sodium (Colace) 100 mg Q12H PRN PO .CONSTIPATION; Start 10/04/18 at 02:30 Bisacodyl (Dulcolax) 5 mg DAILY PRN PO .CONSTIPATION; Start 10/04/18 at 02:30 Hydromorphone HCl (Dilaudid) 0.5 mg Q6H PRN IV PAIN LEVEL 6-10 Last administered on 10/19/18at 10:33; Admin Dose 0.5 MG; Start 10/05/18 at 15:00 Acetaminophen/ Hydrocodone Bitart ([place] (5/325)) 1 tab Q6H PRN PO PAIN LEVEL 6-10 Last administered on 10/19/18at 20:32; Admin Dose 1 TAB; Start 10/05/18 at 15:00 Ondansetron HCl (Zofran Inj) 4 mg Q6H PRN IV NAUSEA AND/OR VOMITING; Start 10/05/18 at 15:00 Acetaminophen/ Hydrocodone Bitart ([place] (5/325)) 1 tab Q6H PRN PO .MOD PAIN 4- 6 Last administered on 10/11/18 18:11; Admin Dose 1 TAB; Start 10/05/18 at 15:30 Diphenhydramine HCl (Benadryl) 25 mg Q6H PRN PO ITCHING Last administered on 10/10/18 21:02; Admin Dose 25 MG; Start 10/07/18 at 11:30 Loratadine (Claritin) 10 mg DAILY PO Last administered on 10/20/18 08:41; Admin Dose 10 MG; Start 10/07/18 at 11:30 Nystatin (Nystatin Cr) 1 applic TID TOP Last administered on 10/20/18 13:26; Admin Dose 1 APPLIC; Start 10/07/18 at 21:00 Ascorbic Acid (Vitamin C) 500 mg BID PO Last administered on 10/20/18 08:41; Admin Dose 500 MG; Start 10/13/18 at 21:00 Zinc Sulfate (Zinc Sulfate) 220 mg DAILY PO Last administered on 10/20/18 08:41; Admin Dose 220 MG; Start 10/14/18 at 09:00 Multivit/Ca Carb/ B Cmplx/FA/Prenat (Natalie-Carmen) 1 tab DAILY PO Last ad ministered on 10/20/18 08:41; Admin Dose 1 TAB; Start 10/14/18 at 09:00 Doxycycline Hyclate (Vibramycin) 100 mg BID PO Last administered on 10/20/18 08:41; Admin Dose 100 MG; Start 10/17/18 at 21:00 Rifampin (Rifampin) 600 mg DAILY PO Last administered on 10/20/18 08:41; Admin Dose 600 MG; Start 10/18/18 at 13:30 RAUL DIANA NP Oct 20, 2018 14:23
[2018-10-20] MEDS: HYDROmorphONE 0.5 MG/0.5 ML SYG IV PRN (14:25)
[2018-10-20 14:42] VITALS: BP 109/62; PULSE 72; RESP 16
[2018-10-20 19:27] VITALS: BP 97/55; PULSE 75; RESP 18
[2018-10-20] MEDS: HYDROCODONE/APAP (5/325) TAB PO PRN (20:50)
[2018-10-21 01:10] VITALS: BP 107/56; PULSE 56; RESP 18
[2018-10-21 07:29] VITALS: BP 101/58; PULSE 69; RESP 16
[2018-10-21] MEDS: LORATADINE 10 MG TAB PO SCH (08:46)
[2018-10-21] MEDS: MULTIVIT/CA CARB/B CMPLX/FA TAB PO SCH (08:46)
[2018-10-21] MEDS: RIFAMPIN 300 MG CAP PO SCH (08:46)
[2018-10-21] MEDS: DOXYCYCLINE 100 MG TAB PO SCH ×2 (08:46→21:00)
[2018-10-21] MEDS: ASCORBIC ACID 500 MG TAB PO SCH ×2 (08:47→21:00)
[2018-10-21] MEDS: ZINC SULFATE 220 MG CAP PO SCH (08:47)
[2018-10-21] MEDS: HYDROmorphONE 0.5 MG/0.5 ML SYG IV PRN ×2 (08:51→16:09)
--- NOTE | 2018-10-21 13:43 | PN ---
Date/Time of Note Date/Time of Note DATE: 10/21/18 TIME: 13:42 Objective Vitals Vital Signs Date Temp Pulse Resp B/P (MAP) Pulse Ox O2 O2 Flow FiO2 Time Delivery Rate 10/21/18 98.1 69 16 101/58 96 07:29 (72) Intake and Output 10/20/18 10/20/18 10/21/18 1515:00 23:00 07:00 IntakeIntake Total 760 ml 320 ml BalanceBalance 760 ml 320 ml Medications Medications Current Medications IV Flush (NS 3 ml) 3 ml PER PROTOCOL IV ; Start 10/04/18 at 02:30 Acetaminophen (Tylenol Tab) 650 mg Q6H PRN PO .PAIN 1-3 OR TEMP; Start 10/04/18 at 02:30 Docusate Sodium (Colace) 100 mg Q12H PRN PO .CONSTIPATION; Start 10/04/18 at 02:30 Bisacodyl (Dulcolax) 5 mg DAILY PRN PO .CONSTIPATION; Start 10/04/18 at 02:30 Hydromorphone HCl (Dilaudid) 0.5 mg Q6H PRN IV PAIN LEVEL 6-10 Last administered on 10/21/18 08:51; Admin Dose 0.5 MG; Start 10/05/18 at 15:00 Acetaminophen/ Hydrocodone Bitart ([place] (5/325)) 1 tab Q6H PRN PO PAIN LEVEL 6-10 Last administered on 10/20/18 20:50; Admin Dose 1 TAB; Start 10/05/18 at 15:00 Ondansetron HCl (Zofran Inj) 4 mg Q6H PRN IV NAUSEA AND/OR VOMITING; Start 10/05/18 at 15:00 Acetaminophen/ Hydrocodone Bitart ([place] (5/325)) 1 tab Q6H PRN PO .MOD PAIN 4- 6 Last administered on 10/11/18 18:11; Admin Dose 1 TAB; Start 10/05/18 at 15:30 Diphenhydramine HCl (Benadryl) 25 mg Q6H PRN PO ITCHING Last administered on 10/10/18 21:02; Admin Dose 25 MG; Start 10/07/18 at 11:30 Loratadine (Claritin) 10 mg DAILY PO Last administered on 10/21/18 08:46; Admin Dose 10 MG; Start 10/07/18 at 11:30 Ascorbic Acid (Vitamin C) 500 mg BID PO Last administered on 10/21/18 08:47; Admin Dose 500 MG; Start 10/13/18 at 21:00 Zinc Sulfate (Zinc Sulfate) 220 mg DAILY PO Last administered on 10/21/18 08:47; Admin Dose 220 MG; Start 10/14/18 at 09:00 Multivit/Ca Carb/ B Cmplx/FA/Prenat (Natalie-Carmen) 1 tab DAILY PO Last administered on 10/21/18 08:46; Admin Dose 1 TAB; Start 10/14/18 at 09:00 Doxycycline Hyclate (Vibramycin) 100 mg BID PO Last administered on 10/21/18 08:46; Admin Dose 100 MG; Start 10/17/18 at 21:00 Rifampin (Rifampin) 600 mg DAILY PO Last administered on 10/21/18 08:46; Admin Dose 600 MG; Start 10/18/18 at 13:30 VTE Prophylaxis Risk [place] [facility] [place] risk: 1 SCD applied [place] [facility] [place] Yes Lines/Catheters IV Catheter Type: Irene in Place: No Assessment/Plan Hospital Course Subjective Patient doing well Objective Physical exam General: Patient is laying in bed and answers questions appropriately Mentation: Patient is alert and oriented 4, Head: Normocephalic atraumatic Eyes: EOMI, pupils reactive to light Neck: Supple, nontender, midline Respiratory: Clear to auscultation bilaterally Cardiovascular: regular rate, no obvious murmurs Gastrointestinal: non-tender to palpation, bowel sounds heard. Neurological: Moves all extremities spontaneously Skin: Left breast and abdominal area bandaged, CDI Assessment/Plan 1. Left abdominal wall soft tissue infection. -Status post surgical debridement on 10/05/2018. -Cultures showing Staph aureus. -Continue antimicrobials as per ID. -Continue local wound care. 2. Left breast soft tissue infection/abscess. -Status post surgical debridement on 10/05/2018. -Cultures showing staph aureus -Continue local wound care. -Continue antimicrobials as per ID. 3. Left groin erythema. -Resolved -nystatin stopped. 4. Fluids, electrolytes, and nutrition. -Regular diet. 5. DVT prophylaxis. -Bilateral SCDs. 6. Plan. -Continue antimicrobials as per ID. -Continue local wound care. -Pending [facility]. The patient needs home health to be arranged upon discharge. CLEMENTE DOMINGUEZ Oct 21, 2018 13:43
--- NOTE | 2018-10-21 14:03 | CONS ---
Assessment/Plan Assessment/Plan Hospital Course (Demo Recall) No events. Alert, feels good, no fevers Antimicrobials: Doxycycline Rifampin Intraoperative culture growing staph aureus left breast drainage culture grew oxacillin sensitive staph aureus Physical examination: Well-developed elderly woman who is alert in no distress head atraumatic normocephalic neck is supple chest rise symmetrical breath sounds clear heart: S1-S2 abdomen soft bowel sounds present. Assessment: 1. Left abdominal wall and left lateral breast soft tissue infection with abscess, status post I&D Plan: Improving, continue abx/ local wound care Consultation Date/Type/Reason Admit Date/Time October 04, 2018 at 23:07 Initial Consult Date 10/05/18 Type of Consult id Requesting Provider: ROGERIO NUNN Date/Time of Note DATE: 10/21/18 TIME: 14:00 Exam/Review of Systems Exam Vitals Vital Signs Date Temp Pulse Resp B/P (MAP) Pulse Ox O2 O2 Flow FiO2 Time Delivery Rate 10/21/18 98.1 69 16 101/58 96 07:29 (72) Intake and Output 10/20/18 10/20/18 10/21/18 1515:00 23:00 07:00 IntakeIntake Total 760 ml 320 ml BalanceBalance 760 ml 320 ml Medications Medication Current Medications IV Flush (NS 3 ml) 3 ml PER PROTOCOL IV ; Start 10/04/18 at 02:30 Acetaminophen (Tylenol Tab) 650 mg Q6H PRN PO .PAIN 1-3 OR TEMP; Start 10/04/18 at 02:30 Docusate Sodium (Colace) 100 mg Q12H PRN PO .CONSTIPATION; Start 10/04/18 at 02:30 Bisacodyl (Dulcolax) 5 mg DAILY PRN PO .CONSTIPATION; Start 10/04/18 at 02:30 Hydromorphone HCl (Dilaudid) 0.5 mg Q6H PRN IV PAIN LEVEL 6-10 Last administered on 10/21/18at 08:51; Admin Dose 0.5 MG; Start 10/05/18 at 15:00 Acetaminophen/ Hydrocodone Bitart ([place] (5/325)) 1 tab Q6H PRN PO PAIN LEVEL 6-10 Last administered on 10/20/18at 20:50; Admin Dose 1 TAB; Start 10/05/18 at 15:00 Ondansetron HCl (Zofran Inj) 4 mg Q6H PRN IV NAUSEA AND/OR VOMITING; Start 10/05/18 at 15:00 Acetaminophen/ Hydrocodone Bitart ([place] (5/325)) 1 tab Q6H PRN PO .MOD PAIN 4- 6 Last administered on 10/11/18 18:11; Admin Dose 1 TAB; Start 10/05/18 at 15:30 Diphenhydramine HCl (Benadryl) 25 mg Q6H PRN PO ITCHING Last administered on 10/10/18 21:02; Admin Dose 25 MG; Start 10/07/18 at 11:30 Loratadine (Claritin) 10 mg DAILY PO Last administered on 10/21/18 08:46; Admin Dose 10 MG; Start 10/07/18 at 11:30 Ascorbic Acid (Vitamin C) 500 mg BID PO Last administered on 10/21/18 08:47; Admin Dose 500 MG; Start 10/13/18 at 21:00 Zinc Sulfate (Zinc Sulfate) 220 mg DAILY PO Last administered on 10/21/18 08 :47; Admin Dose 220 MG; Start 10/14/18 at 09:00 Multivit/Ca Carb/ B Cmplx/FA/Prenat (Natalie-Carmen) 1 tab DAILY PO Last administere d on 10/21/18 08:46; Admin Dose 1 TAB; Start 10/14/18 at 09:00 Doxycycline Hyclate (Vibramycin) 100 mg BID PO Last administered on 10/21/18 08:46; Admin Dose 100 MG; Start 10/17/18 at 21:00 Rifampin (Rifampin) 600 mg DAILY PO Last administered on 10/21/18 08:46; Admin Dose 600 MG; Start 10/18/18 at 13:30 RAUL DIANA NP Oct 21, 2018 14:03
[2018-10-21 15:16] VITALS: BP 100/61; PULSE 70; RESP 16
[2018-10-21 20:17] VITALS: BP 106/61; PULSE 65; RESP 18
[2018-10-22 02:46] VITALS: BP 114/68; PULSE 71; RESP 16
[2018-10-22 07:32] VITALS: BP 124/71; PULSE 77; RESP 20
[2018-10-22] MEDS: RIFAMPIN 300 MG CAP PO SCH (08:37)
[2018-10-22] MEDS: MULTIVIT/CA CARB/B CMPLX/FA TAB PO SCH (08:37)
[2018-10-22] MEDS: DOXYCYCLINE 100 MG TAB PO SCH ×2 (08:38→20:50)
[2018-10-22] MEDS: LORATADINE 10 MG TAB PO SCH (08:38)
[2018-10-22] MEDS: ZINC SULFATE 220 MG CAP PO SCH (08:38)
[2018-10-22] MEDS: ASCORBIC ACID 500 MG TAB PO SCH ×2 (08:38→20:50)
[2018-10-22] MEDS: HYDROmorphONE 0.5 MG/0.5 ML SYG IV PRN ×2 (09:46→22:55)
[2018-10-22 14:14] VITALS: BP 116/63; PULSE 71; RESP 20
--- NOTE | 2018-10-22 14:37 | CONS ---
Assessment/Plan Assessment/Plan Hospital Course (Demo Recall) No events. Alert, feels good, no fevers Antimicrobials: Doxycycline Rifampin Intraoperative culture growing staph aureus left breast drainage culture grew oxacillin sensitive staph aureus Physical examination: Well-developed elderly woman who is alert in no distress head atraumatic normocephalic neck is supple chest rise symmetrical breath sounds clear heart: S1-S2 abdomen soft bowel sounds present. Assessment: 1. Left abdominal wall and left lateral breast soft tissue infection with abscess, status post I&D Plan: Improving, completing abx, continue local wound care Consultation Date/Type/Reason Admit Date/Time October 04, 2018 at 23:07 Initial Consult Date 10/05/18 Type of Consult id Requesting Provider: ROGERIO NUNN Date/Time of Note DATE: 10/22/18 TIME: 14:36 Exam/Review of Systems Exam Vitals Vital Signs Date Temp Pulse Resp B/P (MAP) Pulse Ox O2 O2 Flow FiO2 Time Delivery Rate 10/22/18 98.3 71 20 116/63 96 14:14 (80) Intake and Output 10/21/18 10/21/18 10/22/18 1515:00 23:00 07:00 IntakeIntake Total 780 ml 440 ml 700 ml BalanceBalance 780 ml 440 ml 700 ml Results Result Diagram: 10/22/18 0420 10/22/18 0420 Results 24hrs Laboratory Tests Test 10/22/18 04:20 White Blood Count 4.9 Red Blood Count 4.47 Hemoglobin 12.1 Hematocrit 37.6 Mean Corpuscular Volume 84.1 Mean Corpuscular Hemoglobin 27.1 L Mean Corpuscular Hemoglobin Concent 32.2 Red Cell Distribution Width 14.0 Platelet Count 235 Mean Platelet Volume 10.5 H Immature Granulocytes % 0.000 L Neutrophils % 38.5 L Lymphocytes % 53.6 H Monocytes % 5.7 Eosinophils % 1.8 Basophils % 0.4 Nucleated Red Blood Cells % 0.0 Immature Granulocytes # 0.000 Neutrophils # 1.9 Lymphocytes # 2.6 Monocytes # 0.3 Eosinophils # 0.1 Basophils # 0.0 Nucleated Red Blood Cells # 0.0 Sodium Level 140 Potassium Level 4.4 Chloride Level 104 Carbon Dioxide Level 27 Anion Gap 9 Blood Urea Nitrogen 20 Creatinine 0.66 Est Glomerular Filtrat Rate mL/min > 60 Glucose Level 91 Calcium Level 9.5 Phosphorus Level 5.5 H Magnesium Level 2.0 Medications Medication Current Medications IV Flush (NS 3 ml) 3 ml PER PROTOCOL IV ; Start 10/04/18 at 02:30 Acetaminophen (Tylenol Tab) 650 mg Q6H PRN PO .PAIN 1-3 OR TEMP; Start 10/04/18 at 02:30 Docusate Sodium (Colace) 100 mg Q12H PRN PO .CONSTIPATION; Start 10/04/18 at 02:30 Bisacodyl (Dulcolax) 5 mg DAILY PRN PO .CONSTIPATION; Start 10/04/18 at 02:30 Hydromorphone HCl (Dilaudid) 0.5 mg Q6H PRN IV PAIN LEVEL 6-10 Last administered on 10/22/18 09:46; Admin Dose 0.5 MG; Start 10/05/18 at 15:00 Acetaminophen/ Hydrocodone Bitart ([place] (5/325)) 1 tab Q6H PRN PO PAIN LEVEL 6-10 Last administered on 10/20/18 20:50; Admin Dose 1 TAB; Start 10/05/18 at 15:00 Ondansetron HCl (Zofran Inj) 4 mg Q6H PRN IV NAUSEA AND/OR VOMITING; Start 10/05/18 at 15:00 Acetaminophen/ Hydrocodone Bitart ([place] (5/325)) 1 tab Q6H PRN PO .MOD PAIN 4- 6 Last administered on 10/11/18 18:11; Admin Dose 1 TAB; Start 10/05/18 at 15:30 Diphenhydramine HCl (Benadryl) 25 mg Q6H PRN PO ITCHING Last administered on 10/10/18 21:02; Admin Dose 25 MG; Start 10/07/18 at 11:30 Loratadine (Claritin) 10 mg DAILY PO Last administered on 10/22/18 08:38; Admin Dose 10 MG; Start 10/07/18 at 11:30 Ascorbic Acid (Vitamin C) 500 mg BID PO Last administered on 10/22/18 08:38; Admin Dose 500 MG; Start 10/13/18 at 21:00 Zinc Sulfate (Zinc Sulfate) 220 mg DAILY PO Last administered on 10/22/18 08:38; Admin Dose 220 MG; Start 5/27/19 at 09:00 Multivit/Ca Carb/ B Cmplx/FA/Prenat (Natalie-Carmen) 1 tab DAILY PO Last administered on 10/22/18 08:37; Admin Dose 1 TAB; Start 10/14/18 at 09:00 Doxycycline Hyclate (Vibramycin) 100 mg BID PO Last administered on 10/22/18 08:38; Admin Dose 100 MG; Start 10/17/18 at 21:00 Rifampin (Rifampin) 600 mg DAILY PO Last administered on 10/22/18 08:37; Admin Dose 600 MG; Start 10/18/18 at 13:30 RAUL DIANA NP Oct 22, 2018 14:37
--- NOTE | 2018-10-22 15:19 | PN ---
Date/Time of Note Date/Time of Note DATE: 10/22/18 TIME: :19 Objective Vitals Vital Signs Date Temp Pulse Resp B/P (MAP) Pulse Ox O2 O2 Flow FiO2 Time Delivery Rate 10/22/18 98.3 71 20 116/63 96 14:14 (80) Intake and Output 10/21/18 10/21/18 10/22/18 1515:00 23:00 07:00 IntakeIntake Total 780 ml 440 ml 700 ml BalanceBalance 780 ml 440 ml 700 ml Results Result Diagram: 10/22/18 0420 10/22/18 0420 Medications Medications Current Medications IV Flush (NS 3 ml) 3 ml PER PROTOCOL IV ; Start 10/04/18 at 02:30 Acetaminophen (Tylenol Tab) 650 mg Q6H PRN PO .PAIN 1-3 OR TEMP; Start 10/04/18 at 02:30 Docusate Sodium (Colace) 100 mg Q12H PRN PO .CONSTIPATION; Start 10/04/18 at 02:30 Bisacodyl (Dulcolax) 5 mg DAILY PRN PO .CONSTIPATION; Start 10/04/18 at 02:30 Hydromorphone HCl (Dilaudid) 0.5 mg Q6H PRN IV PAIN LEVEL 6-10 Last administered on 10/22/18at 09:46; Admin Dose 0.5 MG; Start 10/05/18 at 15:00 Acetaminophen/ Hydrocodone Bitart ([place] (5/325)) 1 tab Q6H PRN PO PAIN LEVEL 6-10 Last administered on 10/20/18at 20:50; Admin Dose 1 TAB; Start 10/05/18 at 15:00 Ondansetron HCl (Zofran Inj) 4 mg Q6H PRN IV NAUSEA AND/OR VOMITING; Start 10/05/18 at 15:00 Acetaminophen/ Hydrocodone Bitart ([place] (5/325)) 1 tab Q6H PRN PO .MOD PAIN 4- 6 Last administered on 10/11/18at 18:11; Admin Dose 1 TAB; Start 10/05/18 at 15:30 Diphenhydramine HCl (Benadryl) 25 mg Q6H PRN PO ITCHING Last administered on 10/10/18at 21:02; Admin Dose 25 MG; Start 10/07/18 at 11:30 Loratadine (Claritin) 10 mg DAILY PO Last administered on 10/22/18 08:38; Admin Dose 10 MG; Start 10/07/18 at 11:30 Ascorbic Acid (Vitamin C) 500 mg BID PO Last administered on 10/22/18 08:38; Admin Dose 500 MG; Start 10/13/18 at 21:00 Zinc Sulfate (Zinc Sulfate) 220 mg DAILY PO Last administered on 10/22/18 08:38; Admin Dose 220 MG; Start 10/14/18 at 09:00 Multivit/Ca Carb/ B Cmplx/FA/Prenat (Natalie-Carmen) 1 tab DAILY PO Last administered on 10/22/18 08:37; Admin Dose 1 TAB; Start 10/14/18 at 09:00 Doxycycline Hyclate (Vibramycin) 100 mg BID PO Last administered on 10/22/18 08:38; Admin Dose 100 MG; Start 10/17/18 at 21:00 Rifampin (Rifampin) 600 mg DAILY PO Last administered on 10/22/18 08:37; Admin Dose 600 MG; Start 10/18/18 at 13:30 VTE Prophylaxis Risk score (from Ns)>0 risk: 1 [place] [facility] [place] Lines/Catheters IV Catheter Type: Irene in Place: No Assessment/Plan Hospital Course Subjective Patient doing well Objective Physical exam General: Patient is laying in bed and answers questions appropriately Mentation: Patient is alert and oriented 4, Head: Normocephalic atraumatic Eyes: EOMI, pupils reactive to light Neck: Supple, nontender, midline Respiratory: Clear to auscultation bilaterally Cardiovascular: regular rate, no obvious murmurs Gastrointestinal: non-tender to palpation, bowel sounds heard. Neurological: Moves all extremities spontaneously Skin: Left breast and abdominal area bandaged, CDI Assessment/Plan 1. Left abdominal wall soft tissue infection. -Status post surgical debridement on 10/05/2018. -Cultures showing Staph aureus. -Continue antimicrobials as per ID. -Continue local wound care. 2. Left breast soft tissue infection/abscess. -Status post surgical debridement on 10/05/2018. -Cultures showing staph aureus -Continue local wound care. -Continue antimicrobials as per ID. 3. Left groin erythema. -Resolved -nystatin stopped. 4. Fluids, electrolytes, and nutrition. -Regular diet. 5. DVT prophylaxis. -Bilateral SCDs. 6. Plan. -Continue antimicrobials as per ID. -Continue local wound care. -Pending [facility]. The patient needs home health to be arranged upon discharge. CLEMENTE DOMINGUEZ Oct 22, 2018 15:19
[2018-10-22 20:30] VITALS: BP 130/64; PULSE 64; RESP 16
[2018-10-23 02:13] VITALS: BP 107/62; PULSE 69; RESP 16
[2018-10-23 07:31] VITALS: BP 99/54; PULSE 64; RESP 20
[2018-10-23] MEDS: ASCORBIC ACID 500 MG TAB PO SCH ×2 (08:55→20:53)
[2018-10-23] MEDS: ZINC SULFATE 220 MG CAP PO SCH (08:55)
[2018-10-23] MEDS: LORATADINE 10 MG TAB PO SCH (08:55)
[2018-10-23] MEDS: MULTIVIT/CA CARB/B CMPLX/FA TAB PO SCH (08:55)
[2018-10-23] MEDS: DOXYCYCLINE 100 MG TAB PO SCH (08:55)
[2018-10-23] MEDS: RIFAMPIN 300 MG CAP PO SCH (08:56)
[2018-10-23 14:15] VITALS: BP 125/64; PULSE 73; RESP 20
--- NOTE | 2018-10-23 14:23 | PN ---
Date/Time of Note Date/Time of Note DATE: 10/23/18 TIME: 14:23 Objective Vitals Vital Signs Date Temp Pulse Resp B/P (MAP) Pulse Ox O2 O2 Flow FiO2 Time Delivery Rate 10/23/18 98.2 73 20 125/64 97 14:15 (84) Intake and Output 10/22/18 10/22/18 10/23/18 1515:00 23:00 07:00 IntakeIntake Total 840 ml 480 ml 700 ml BalanceBalance 840 ml 480 ml 700 ml Results Result Diagram: 10/22/18 0420 10/22/18 0420 Medications Medications Current Medications IV Flush (NS 3 ml) 3 ml PER PROTOCOL IV ; Start 10/04/18 at 02:30 Acetaminophen (Tylenol Tab) 650 mg Q6H PRN PO .PAIN 1-3 OR TEMP; Start 10/04/18 at 02:30 Docusate Sodium (Colace) 100 mg Q12H PRN PO .CONSTIPATION; Start 10/04/18 at 02:30 Bisacodyl (Dulcolax) 5 mg DAILY PRN PO .CONSTIPATION; Start 10/04/18 at 02:30 Hydromorphone HCl (Dilaudid) 0.5 mg Q6H PRN IV PAIN LEVEL 6-10 Last administered on 10/22/18at 22:55; Admin Dose 0.5 MG; Start 10/05/18 at 15:00 Acetaminophen/ Hydrocodone Bitart ([place] (5/325)) 1 tab Q6H PRN PO PAIN LEVEL 6-10 Last administered on 10/20/18at 20:50; Admin Dose 1 TAB; Start 10/05/18 at 15:00 Ondansetron HCl (Zofran Inj) 4 mg Q6H PRN IV NAUSEA AND/OR VOMITING; Start 10/05/18 at 15:00 Acetaminophen/ Hydrocodone Bitart ([place] (5/325)) 1 tab Q6H PRN PO .MOD PAIN 4- 6 Last administered on 10/11/18at 18:11; Admin Dose 1 TAB; Start 10/05/18 at 15:30 Diphenhydramine HCl (Benadryl) 25 mg Q6H PRN PO ITCHING Last administered on 10/10/18at 21:02; Admin Dose 25 MG; Start 10/07/18 at 11:30 Loratadine (Claritin) 10 mg DAILY PO Last administered on 10/23/18 08:55; Admin Dose 10 MG; Start 10/07/18 at 11:30 Ascorbic Acid (Vitamin C) 500 mg BID PO Last administered on 10/23/18 08:55; Admin Dose 500 MG; Start 10/13/18 at 21:00 Zinc Sulfate (Zinc Sulfate) 220 mg DAILY PO Last administered on 10/23/18 08:55; Admin Dose 220 MG; Start 10/14/18 at 09:00 Multivit/Ca Carb/ B Cmplx/FA/Prenat (Natalie-Carmen) 1 tab DAILY PO Last administered on 10/23/18 08:55; Admin Dose 1 TAB; Start 10/14/18 at 09:00 Doxycycline Hyclate (Vibramycin) 100 mg BID PO Last administered on 10/23/18 08:55; Admin Dose 100 MG; Start 10/17/18 at 21:00 Rifampin (Rifampin) 600 mg DAILY PO Last administered on 10/23/18 08:56; Admin Dose 600 MG; Start 10/18/18 at 13:30 VTE Prophylaxis Risk score (from Ns)>0 risk: 1 SCD applied (from [facility] [place]): No SCD contraindication: other Lines/Catheters IV Catheter Type: Irene in Place: No Assessment/Plan Hospital Course Subjective Patient doing well Objective Physical exam General: Patient is laying in bed and answers questions appropriately Mentation: Patient is alert and oriented 4, Head: Normocephalic atraumatic Eyes: EOMI, pupils reactive to light Neck: Supple, nontender, midline Respiratory: Clear to auscultation bilaterally Cardiovascular: regular rate, no obvious murmurs Gastrointestinal: non-tender to palpation, bowel sounds heard. Neurological: Moves all extremities spontaneously Skin: Left breast and abdominal area bandaged, CDI Assessment/Plan 1. Left abdominal wall soft tissue infection. -Status post surgical debridement on 10/05/2018. -Cultures showing Staph aureus. -Continue antimicrobials as per ID. -Continue local wound care. 2. Left breast soft tissue infection/abscess. -Status post surgical debridement on 10/05/2018. -Cultures showing staph aureus -Continue local wound care. -Continue antimicrobials as per ID. 3. Left groin erythema. -Resolved -nystatin stopped. 4. Fluids, electrolytes, and nutrition. -Regular diet. 5. DVT prophylaxis. -Bilateral SCDs. 6. Plan. -Continue antimicrobials as per ID. -Continue local wound care. -Pending [facility]. The patient needs home health to be arranged upon discharge. CLEMENTE DOMINGUEZ Oct 23, 2018 14:23
[2018-10-23] MEDS: HYDROmorphONE 0.5 MG/0.5 ML SYG IV PRN (15:42)
--- NOTE | 2018-10-23 16:30 | CONS ---
Assessment/Plan Assessment/Plan Hospital Course (Demo Recall) No events. Alert, feels good, no fevers Antimicrobials: Doxycycline Rifampin Intraoperative culture growing staph aureus left breast drainage culture grew oxacillin sensitive staph aureus Physical examination: Well-developed elderly woman who is alert in no distress head atraumatic normocephalic neck is supple chest rise symmetrical breath sounds clear heart: S1-S2 abdomen soft bowel sounds present. Assessment: 1. Left abdominal wall and left lateral breast soft tissue infection with abscess, status post I&D Plan: Stable, continue local wound care, dc abx Consultation Date/Type/Reason Admit Date/Time October 04, 2018 at 23:07 Initial Consult Date 10/05/18 Type of Consult id Requesting Provider: ROGERIO NUNN Date/Time of Note DATE: 10/23/18 TIME: 16:29 Exam/Review of Systems Exam Vitals Vital Signs Date Temp Pulse Resp B/P (MAP) Pulse Ox O2 O2 Flow FiO2 Time Delivery Rate 10/23/18 98.2 73 20 125/64 97 14:15 (84) Intake and Output 10/22/18 10/22/18 10/23/18 1515:00 23:00 07:00 IntakeIntake Total 840 ml 480 ml 700 ml BalanceBalance 840 ml 480 ml 700 ml Results Result Diagram: 10/22/18 0420 10/22/18 0420 Medications Medication Current Medications IV Flush (NS 3 ml) 3 ml PER PROTOCOL IV ; Start 10/04/18 at 02:30 Acetaminophen (Tylenol Tab) 650 mg Q6H PRN PO .PAIN 1-3 OR TEMP; Start 10/04/18 at 02:30 Docusate Sodium (Colace) 100 mg Q12H PRN PO .CONSTIPATION; Start 10/04/18 at 02:30 Bisacodyl (Dulcolax) 5 mg DAILY PRN PO .CONSTIPATION; Start 10/04/18 at 02:30 Hydromorphone HCl (Dilaudid) 0.5 mg Q6H PRN IV PAIN LEVEL 6-10 Last administered on 10/23/18at 15:42; Admin Dose 0.5 MG; Start 10/05/18 at 15:00 Acetaminophen/ Hydrocodone Bitart ([place] (5/325)) 1 tab Q6H PRN PO PAIN LEVEL 6 -10 Last administered on 10/20/18 20:50; Admin Dose 1 TAB; Start 10/05/18 at 15:00 Ondansetron HCl (Zofran Inj) 4 mg Q6H PRN IV NAUSEA AND/OR VOMITING; Start 10/05/18 at 15:00 Acetaminophen/ Hydrocodone Bitart ([place] (5/325)) 1 tab Q6H PRN PO .MOD PAIN 4- 6 Last administered on 10/11/18 18:11; Admin Dose 1 TAB; Start 10/05/18 at 15:30 Diphenhydramine HCl (Benadryl) 25 mg Q6H PRN PO ITCHING Last administered on 10/10/18 21:02; Admin Dose 25 MG; Start 10/07/18 at 11:30 Loratadine (Claritin) 10 mg DAILY PO Last administered on 10/23/18 08:55; Admin Dose 10 MG; Start 10/07/18 at 11:30 Ascorbic Acid (Vitamin C) 500 mg BID PO Last administered on 10/23/18 08:55; Admin Dose 500 MG; Start 10/13/18 at 21:00 Zinc Sulfate (Zinc Sulfate) 220 mg DAILY PO Last administered on 10/23/18 08:55; Admin Dose 220 MG; Start 10/14/18 at 09:00 Multivit/Ca Carb/ B Cmplx/FA/Prenat (Natalie-Carmen) 1 tab DAILY PO Last administered on 10/23/18 08:55; Admin Dose 1 TAB; Start 10/14/18 at 09:00 Doxycycline Hyclate (Vibramycin) 100 mg BID PO Last administered on 10/23/18 08:55; Admin Dose 100 MG; Start 10/17/18 at 21:00 Rifampin (Rifampin) 600 mg DAILY PO Last administered on 10/23/18 08:56; Admin Dose 600 MG; Start 10/18/18 at 13:30 RAUL DIANA NP Oct 23, 2018 16:30
[2018-10-24 01:27] VITALS: BP 117/59; PULSE 59; RESP 18
[2018-10-24 07:44] VITALS: BP 115/62; PULSE 68; RESP 16
[2018-10-24] MEDS: MULTIVIT/CA CARB/B CMPLX/FA TAB PO SCH (09:00)
[2018-10-24] MEDS: ZINC SULFATE 220 MG CAP PO SCH (09:00)
[2018-10-24] MEDS: ASCORBIC ACID 500 MG TAB PO SCH ×2 (09:00→20:46)
[2018-10-24] MEDS: LORATADINE 10 MG TAB PO SCH (09:05)
[2018-10-24] MEDS: HYDROCODONE/APAP (5/325) TAB PO PRN (09:05)
[2018-10-24 14:40] VITALS: BP 113/64; PULSE 59; RESP 18
[2018-10-24] MEDS: HYDROmorphONE 0.5 MG/0.5 ML SYG IV PRN (14:58)
--- NOTE | 2018-10-24 16:06 | PN ---
Date/Time of Note Date/Time of Note DATE: 10/24/18 TIME: 16:05 Objective Vitals Vital Signs Date Temp Pulse Resp B/P (MAP) Pulse Ox O2 O2 Flow FiO2 Time Delivery Rate 10/24/18 98.1 59 18 113/64 96 Room Air 14:40 (80) Intake and Output 10/23/18 10/23/18 10/24/18 1515:00 23:00 07:00 IntakeIntake Total 1080 ml 240 ml BalanceBalance 1080 ml 240 ml Results Result Diagram: 10/22/18 0420 10/22/18 0420 Medications Medications Current Medications IV Flush (NS 3 ml) 3 ml PER PROTOCOL IV ; Start 10/04/18 at 02:30 Acetaminophen (Tylenol Tab) 650 mg Q6H PRN PO .PAIN 1-3 OR TEMP; Start 10/04/18 at 02:30 Docusate Sodium (Colace) 100 mg Q12H PRN PO .CONSTIPATION; Start 10/04/18 at 02:30 Bisacodyl (Dulcolax) 5 mg DAILY PRN PO .CONSTIPATION; Start 10/04/18 at 02:30 Hydromorphone HCl (Dilaudid) 0.5 mg Q6H PRN IV PAIN LEVEL 6-10 Last administered on 10/24/18 14:58; Admin Dose 0.5 MG; Start 10/05/18 at 15:00 Acetaminophen/ Hydrocodone Bitart ([place] (5/325)) 1 tab Q6H PRN PO PAIN LEVEL 6-10 Last administered on 10/24/18 09:05; Admin Dose 1 TAB; Start 10/05/18 at 15:00 Ondansetron HCl (Zofran Inj) 4 mg Q6H PRN IV NAUSEA AND/OR VOMITING Last administered on 10/24/18 14:57; Admin Dose 4 MG; Start 10/05/18 at 15:00 Acetaminophen/ Hydrocodone Bitart ([place] (5/325)) 1 tab Q6H PRN PO .MOD PAIN 4- 6 Last administered on 10/11/18 18:11; Admin Dose 1 TAB; Start 10/05/18 at 15:30 Diphenhydramine HCl (Benadryl) 25 mg Q6H PRN PO ITCHING Last administered on 5/23/19at 21:02; Admin Dose 25 MG; Start 10/07/18 at 11:30 Loratadine (Claritin) 10 mg DAILY PO Last administered on 10/24/18 09:05; Admin Dose 10 MG; Start 10/07/18 at 11:30 Ascorbic Acid (Vitamin C) 500 mg BID PO Last administered on 10/24/18 09:00; A dmin Dose 500 MG; Start 10/13/18 at 21:00 Zinc Sulfate (Zinc Sulfate) 220 mg DAILY PO Last administered on 10/24/18 09:00; Admin Dose 220 MG; Start 10/14/18 at 09:00 Multivit/Ca Carb/ B Cmplx/FA/Prenat (Natalie-Carmen) 1 tab DAILY PO Last administered on 10/24/18 09:00; Admin Dose 1 TAB; Start 10/14/18 at 09:00 VTE Prophylaxis Risk score (from Ns)>0 risk: 1 SCD applied (from [facility] [place] No SCD contraindication: other Lines/Catheters IV Catheter Type: Irene in Place: No Assessment/Plan Hospital Course Subjective Patient doing well Objective Physical exam General: Patient is laying in bed and answers questions appropriately Mentation: Patient is alert and oriented 4, Head: Normocephalic atraumatic Eyes: EOMI, pupils reactive to light Neck: Supple, nontender, midline Respiratory: Clear to auscultation bilaterally Cardiovascular: regular rate, no obvious murmurs Gastrointestinal: non-tender to palpation, bowel sounds heard. Neurological: Moves all extremities spontaneously Skin: Left breast and abdominal area bandaged, CDI Assessment/Plan 1. Left abdominal wall soft tissue infection. -Status post surgical debridement on 10/05/2018. -Cultures showing Staph aureus. -Continue antimicrobials as per ID. -Continue local wound care. 2. Left breast soft tissue infection/abscess. -Status post surgical debridement on 10/05/2018. -Cultures showing staph aureus -Continue local wound care. -Continue antimicrobials as per ID. 3. Left groin erythema. -Resolved -nystatin stopped. 4. Fluids, electrolytes, and nutrition. -Regular diet. 5. DVT prophylaxis. -Bilateral SCDs. 6. Plan. -Continue antimicrobials as per ID. -Continue local wound care. -Pending [facility]. The patient needs home health to be arranged upon discharge. CLEMENTE DOMINGUEZ Oct 24, 2018 16:06
[2018-10-24 19:43] VITALS: BP 99/55; PULSE 64; RESP 18
[2018-10-25 01:54] VITALS: BP 102/59; PULSE 57; RESP 17
[2018-10-25 07:32] VITALS: BP 103/55; PULSE 66; RESP 17
[2018-10-25] MEDS: LORATADINE 10 MG TAB PO SCH (08:37)
[2018-10-25] MEDS: ASCORBIC ACID 500 MG TAB PO SCH ×2 (08:37→20:41)
[2018-10-25] MEDS: ZINC SULFATE 220 MG CAP PO SCH (08:37)
[2018-10-25] MEDS: MULTIVIT/CA CARB/B CMPLX/FA TAB PO SCH (08:37)
[2018-10-25] MEDS: HYDROCODONE/APAP (5/325) TAB PO PRN (08:38)
[2018-10-25 14:19] VITALS: BP 119/67; PULSE 67; RESP 18
--- NOTE | 2018-10-25 14:27 | PN ---
Date/Time of Note Date/Time of Note DATE: 10/25/18 TIME: 14:26 Objective Vitals Vital Signs Date Temp Pulse Resp B/P (MAP) Pulse Ox O2 O2 Flow FiO2 Time Delivery Rate 10/25/18 98.0 67 18 119/67 97 Room Air 14:19 (84) Intake and Output 10/24/18 10/24/18 10/25/18 1515:00 23:00 07:00 IntakeIntake Total 360 ml BalanceBalance 360 ml Results Result Diagram: 10/25/18 0425 10/25/18 0425 Medications Medications Current Medications IV Flush (NS 3 ml) 3 ml PER PROTOCOL IV Last administered on 10/25/18 08:38; Admin Dose 3 ML; Start 10/04/18 at 02:30 Acetaminophen (Tylenol Tab) 650 mg Q6H PRN PO .PAIN 1-3 OR TEMP; Start 10/04/18 at 02:30 Docusate Sodium (Colace) 100 mg Q12H PRN PO .CONSTIPATION; Start 10/04/18 at 02:30 Bisacodyl (Dulcolax) 5 mg DAILY PRN PO .CONSTIPATION; Start 10/04/18 at 02:30 Hydromorphone HCl (Dilaudid) 0.5 mg Q6H PRN IV PAIN LEVEL 6-10 Last administered on 10/24/18 14:58; Admin Dose 0.5 MG; Start 10/05/18 at 15:00 Acetaminophen/ Hydrocodone Bitart ([place] (5/325)) 1 tab Q6H PRN PO PAIN LEVEL 6-10 Last administered on 10/25/18 08:38; Admin Dose 1 TAB; Start 10/05/18 at 15:00 Ondansetron HCl (Zofran Inj) 4 mg Q6H PRN IV NAUSEA AND/OR VOMITING Last administered on 10/24/18 14:57; Admin Dose 4 MG; Start 10/05/18 at 15:00 Acetaminophen/ Hydrocodone Bitart ([place] (5/325)) 1 tab Q6H PRN PO .MOD PAIN 4- 6 Last administered on 10/11/18 18:11; Admin Dose 1 TAB; Start 10/05/18 at 15:30 Diphenhydramine HCl (Benadryl) 25 mg Q6H PRN PO ITCHING Last administered on 10/10/18 21:02; Admin Dose 25 MG; Start 10/07/18 at 11:30 Loratadine (Claritin) 10 mg DAILY PO Last administered on 10/25/18 08:37; Admin Dose 10 MG; Start 10/07/18 at 11:30 Ascorbic Acid (Vitamin C) 500 mg BID PO Last administered on 10/25/18 08:37; Admin Dose 500 MG; Start 10/13/18 at 21:00 Zinc Sulfate (Zinc Sulfate) 220 mg DAILY PO Last administered on 10/25/18 08:37; Admin Dose 220 MG; Start 10/14/18 at 09:00 Multivit/Ca Carb/ B Cmplx/FA/Prenat (Natalie-Carmen) 1 tab DAILY PO Last administered on 10/25/18 08:37; Admin Dose 1 TAB; Start 10/14/18 at 09:00 VTE Prophylaxis Risk score (from [facility] [place])>0 risk: 1 SCD applied (from [facility] [place]): No SCD contraindication: other Lines/Catheters IV Catheter Type: Irene in Place: No Assessment/Plan Hospital Course Subjective Patient doing well Objective Physical exam General: Patient is laying in bed and answers questions appropriately Mentation: Patient is alert and oriented 4, Head: Normocephalic atraumatic Eyes: EOMI, pupils reactive to light Neck: Supple, nontender, midline Respiratory: Clear to auscultation bilaterally Cardiovascular: regular rate, no obvious murmurs Gastrointestinal: non-tender to palpation, bowel sounds heard. Neurological: Moves all extremities spontaneously Skin: Left breast and abdominal area bandaged, CDI Assessment/Plan 1. Left abdominal wall soft tissue infection. -Status post surgical debridement on 10/05/2018. -Cultures showing Staph aureus. -Continue antimicrobials as per ID. -Continue local wound care. 2. Left breast soft tissue infection/abscess. -Status post surgical debridement on 10/05/2018. -Cultures showing staph aureus -Continue local wound care. -Continue antimicrobials as per ID. 3. Left groin erythema. -Resolved -nystatin stopped. 4. Fluids, electrolytes, and nutrition. -Regular diet. 5. DVT prophylaxis. -Bilateral SCDs. 6. Plan. -Continue antimicrobials as per ID. -Continue local wound care. -Pending [facility]. The patient needs home health to be arranged upon discharge. CLEMENTE DOMINGUEZ Oct 25, 2018 14:27
[2018-10-25] MEDS: HYDROmorphONE 0.5 MG/0.5 ML SYG IV PRN (16:48)
[2018-10-25 19:41] VITALS: BP 107/67; PULSE 62; RESP 18
[2018-10-26 02:23] VITALS: BP 103/54; PULSE 63; RESP 18
[2018-10-26 07:39] VITALS: BP 100/58; PULSE 61; RESP 17
[2018-10-26] MEDS: LORATADINE 10 MG TAB PO SCH (08:59)
[2018-10-26] MEDS: ASCORBIC ACID 500 MG TAB PO SCH ×2 (09:00→20:44)
[2018-10-26] MEDS: ZINC SULFATE 220 MG CAP PO SCH (09:00)
[2018-10-26] MEDS: MULTIVIT/CA CARB/B CMPLX/FA TAB PO SCH (09:00)
[2018-10-26 14:23] VITALS: BP 111/67; PULSE 71; RESP 17
[2018-10-26] MEDS: HYDROCODONE/APAP (5/325) TAB PO PRN (15:45)
--- NOTE | 2018-10-26 15:57 | PN ---
Date/Time of Note Date/Time of Note DATE: 10/26/18 TIME: 15:57 Objective Vitals Vital Signs Date Temp Pulse Resp B/P (MAP) Pulse Ox O2 O2 Flow FiO2 Time Delivery Rate 10/26/18 98.2 71 17 111/67 98 Room Air 14:23 (82) Intake and Output 10/25/18 10/25/18 10/26/18 1515:00 23:00 07:00 IntakeIntake Total 240 ml 400 ml BalanceBalance 240 ml 400 ml Results Result Diagram: 10/25/18 0425 10/25/18 0425 Medications Medications Current Medications IV Flush (NS 3 ml) 3 ml PER PROTOCOL IV Last administered on 10/25/18 08:38; Admin Dose 3 ML; Start 10/04/18 at 02:30 Acetaminophen (Tylenol Tab) 650 mg Q6H PRN PO .PAIN 1-3 OR TEMP; Start 10/04/18 at 02:30 Docusate Sodium (Colace) 100 mg Q12H PRN PO .CONSTIPATION; Start 10/04/18 at 02:30 Bisacodyl (Dulcolax) 5 mg DAILY PRN PO .CONSTIPATION; Start 10/04/18 at 02:30 Hydromorphone HCl (Dilaudid) 0.5 mg Q6H PRN IV PAIN LEVEL 6-10 Last administered on 10/25/18 16:48; Admin Dose 0.5 MG; Start 10/05/18 at 15:00 Acetaminophen/ Hydrocodone Bitart ([place] (5/325)) 1 tab Q6H PRN PO PAIN LEVEL 6-10 Last administered on 10/26/18 15:45; Admin Dose 1 TAB; Start 10/05/18 at 15:00 Ondansetron HCl (Zofran Inj) 4 mg Q6H PRN IV NAUSEA AND/OR VOMITING Last administered on 10/24/18 14:57; Admin Dose 4 MG; Start 10/05/18 at 15:00 Acetaminophen/ Hydrocodone Bitart ([place] (5/325)) 1 tab Q6H PRN PO .MOD PAIN 4- 6 Last administered on 10/11/18 18:11; Admin Dose 1 TAB; Start 10/05/18 at 15:30 Diphenhydramine HCl (Benadryl) 25 mg Q6H PRN PO ITCHING Last administered on 10/10/18 21:02; Admin Dose 25 MG; Start 10/07/18 at 11:30 Loratadine (Claritin) 10 mg DAILY PO Last administered on 10/26/18 08:59; Admin Dose 10 MG; Start 10/07/18 at 11:30 Ascorbic Acid (Vitamin C) 500 mg BID PO Last administered on 10/26/18 09:00; Admin Dose 500 MG; Start 10/13/18 at 21:00 Zinc Sulfate (Zinc Sulfate) 220 mg DAILY PO Last administered on 10/26/18 09:00; Admin Dose 220 MG; Start 10/14/18 at 09:00 Multivit/Ca Carb/ B Cmplx/FA/Prenat (Natalie-Carmen) 1 tab DAILY PO Last administered on 10/26/18 09:00; Admin Dose 1 TAB; Start 10/14/18 at 09:00 VTE Prophylaxis Risk score (from [facility] [place])>0 risk: 1 SCD applied (from [facility] [place]): No SCD contraindication: other Lines/Catheters IV Catheter Type: Irene in Place: No Assessment/Plan Hospital Course Subjective Patient doing well Objective Physical exam General: Patient is laying in bed and answers questions appropriately Mentation: Patient is alert and oriented 4, Head: Normocephalic atraumatic Eyes: EOMI, pupils reactive to light Neck: Supple, nontender, midline Respiratory: Clear to auscultation bilaterally Cardiovascular: regular rate, no obvious murmurs Gastrointestinal: non-tender to palpation, bowel sounds heard. Neurological: Moves all extremities spontaneously Skin: Left breast and abdominal area bandaged, CDI Assessment/Plan 1. Left abdominal wall soft tissue infection. -Status post surgical debridement on 10/05/2018. -Cultures showing Staph aureus. -Continue antimicrobials as per ID. -Continue local wound care. 2. Left breast soft tissue infection/abscess. -Status post surgical debridement on 10/05/2018. -Cultures showing staph aureus -Continue local wound care. -Continue antimicrobials as per ID. 3. Left groin erythema. -Resolved -nystatin stopped. 4. Fluids, electrolytes, and nutrition. -Regular diet. 5. DVT prophylaxis. -Bilateral SCDs. 6. Plan. -Continue antimicrobials as per ID. -Continue local wound care. -Pending [facility]. The patient needs home health to be arranged upon discharge. CLEMENTE DOMINGUEZ Oct 26, 2018 15:57
[2018-10-26 19:30] VITALS: BP 131/57; PULSE 80; RESP 18
[2018-10-27 01:26] VITALS: BP 110/55; PULSE 68; RESP 18
[2018-10-27 07:57] VITALS: BP 98/50; PULSE 69; RESP 17
[2018-10-27] MEDS: ZINC SULFATE 220 MG CAP PO SCH (08:56)
[2018-10-27] MEDS: LORATADINE 10 MG TAB PO SCH (08:56)
[2018-10-27] MEDS: MULTIVIT/CA CARB/B CMPLX/FA TAB PO SCH (08:58)
[2018-10-27] MEDS: ASCORBIC ACID 500 MG TAB PO SCH (08:58)
--- NOTE | 2018-10-27 11:42 | CONS ---
Assessment/Plan Assessment/Plan Hospital Course (Demo Recall) ID PROGRESS NOTE CURRENT ABX: DAY # => OFF Abx s/p Clindamycin s/p Vanco IV + Zosyn 10/04 - 09/27 24H INTERVAL SUMMARY * Awake, alert, c/o BILATERAL ORBITAL / FACIAL PUFFY EDEMA AND FACIAL PRURITIC RASH whenever she takes Vit C, Zinc, Renal Vit == WILL DC TODAY * No fevers, WBC normalized, VSS, NAD IMAGING * 10/04/18 BREAST US: 1. 2.7 x 0.8 cm heterogeneous subcutaneous lesion at the 3 o'clock position of the left breast. This may represent a complex fluid marion ection or abscess. Correlate clinically. * 10/04/18 CT A-P: Skin thickening and subcutaneous stranding across the lower ventral abdominal wall with a focal area of nodular thickening within the left lower ventral abdominal wall measuring 2.3 x 1.5 cm. Findings could suggest an abscess; however, study is limited by lack of intravenous contrast. MICRO/OTHER * 10/05/18 BREAST Cx: WOUND CULTURE Final Organism 1 STAPHYLOCOCCUS AUREUS QUANTITY 2+ * 10/05/18 ABD WOUND: (+)AARON, (-)Anaerobes, (-)Fungal, (-)AFB smear * 10/04/18 BREAST CX: WOUND CULTURE Final Organism 1 STAPHYLOCOCCUS AUREUS * 10/04/18 ABD WOUND: (+)OSSAWOUND CULTURE Final Organism 1 STAPHYLOCOCCUS AUREUS QUANTITY 3+ S AUREUS M.I.C. RX --------- --- CEFAZOLIN S CIPROFLOXACIN <=0.5 S CLINDAMYCIN <=0.25 S DOXYCYCLINE S ERYTHROMYCIN <=0.25 S LEVOFLOXACIN 0.25 S OXACILLIN 0.5 S PENICILLIN-G >=0.5 R RIFAMPIN <=0.5 S VANCOMYCIN <=0.5 S TRIMETHOPRIM/SULFAMETHOXAZOLE >=320 R * 10/04/18 URINE: Mixed Pathogens * 10/04/18 BCx (-) PHYSICAL EXAMINATION: GENERAL: VSS, NAD, HEENT: AT, NC, NECK: WNL CHEST: Equal chest rise bilaterally without dyspnea on observation ABD: Soft, ND EXTREMITIES: Warm, dry SKIN: No rash, no diaphoresis ID ASSESSMENT 62 yo F admit with: 1. Left abdominal wall soft tissue infection. * -Status post surgical debridement on 10/05/2018. * -Cultures showing Staph aureus. 2. Left breast soft tissue infection/abscess w/ acute pain * -Status post surgical debridement on 10/05/2018. * -Cultures showing staph aureus 3. Left groin erythema -- likely local yeast infection from ABX * -Continue nystatin. 4. Hypertension: Suboptimal control 5. c/o BILATERAL ORBITAL / FACIAL PUFFY EDEMA AND FACIAL PRURITIC RASH whenever she takes Vit C, Zinc, Renal Vit == WILL DC TODAY (?)MRSA Nares ABX ALLERGIES: NKDA INVASIVES: PIV CURRENT ABX: DAY # OFF ABX S/P Clindamycin s/p Vanco IV + Zosyn 10/04 - 09/27 ID RECOMMENDATIONS/PLAN: 1. c/o BILATERAL ORBITAL / FACIAL PUFFY EDEMA AND FACIAL PRURITIC RASH whenever she takes Vit C, Zinc, Renal Vit * == WILL DC VITAMIN MINERAL SUPPLEMENTS TODAY 2. ID team will see PRN if called, she has completed ABX . Consultation Date/Type/Reason Admit Date/Time October 04, 2018 at 23:07 Initial Consult Date 10/05/18 Requesting Provider: ROGERIO NUNN Date/Time of Note DATE: 10/27/18 TIME: 11:37 Exam/Review of Systems Exam Vitals Vital Signs Date Temp Pulse Resp B/P (MAP) Pulse Ox O2 O2 Flow FiO2 Time Delivery Rate 10/27/18 98.9 69 17 98/50 (66) 97 Room Air 07:57 Intake and Output 10/26/18 10/26/18 10/27/18 1515:00 23:00 07:00 IntakeIntake Total 1040 ml 1600 ml 750 ml BalanceBalance 1040 ml 1600 ml 750 ml Results Result Diagram: 10/25/18 0425 10/25/18 0425 Medications Medication Current Medications IV Flush (NS 3 ml) 3 ml PER PROTOCOL IV Last administered on 10/25/18at 08:38; Admin Dose 3 ML; Start 10/04/18 at 02:30 Acetaminophen (Tylenol Tab) 650 mg Q6H PRN PO .PAIN 1-3 OR TEMP; Start 10/04/18 at 02:30 Docusate Sodium (Colace) 100 mg Q12H PRN PO .CONSTIPATION; Start 10/04/18 at 02:30 Bisacodyl (Dulcolax) 5 mg DAILY PRN PO .CONSTIPATION; Start 10/04/18 at 02:30 Hydromorphone HCl (Dilaudid) 0.5 mg Q6H PRN IV PAIN LEVEL 6-10 Last administered on 10/25/18 16:48; Admin Dose 0.5 MG; Start 10/05/18 at 15:00 Acetaminophen/ Hydrocodone Bitart ([place] (5/325)) 1 tab Q6H PRN PO PAIN LEVEL 6-10 Last administered on 10/26/18 15:45; Admin Dose 1 TAB; Start 10/05/18 at 15:00 Ondansetron HCl (Zofran Inj) 4 mg Q6H PRN IV NAUSEA AND/OR VOMITING Last administered on 10/24/18 14:57; Admin Dose 4 MG; Start 10/05/18 at 15:00 Acetaminophen/ Hydrocodone Bitart ([place] (5/325)) 1 tab Q6H PRN PO .MOD PAIN 4- 6 Last administered on 10/11/18 18:11; Admin Dose 1 TAB; Start 10/05/18 at 15:30 Diphenhydramine HCl (Benadryl) 25 mg Q6H PRN PO ITCHING Last administered on 10/10/18 21:02; Admin Dose 25 MG; Start 10/07/18 at 11:30 Loratadine (Claritin) 10 mg DAILY PO Last administered on 10/27/18 08:56; Admin Dose 10 MG; Start 10/07/18 at 11:30 Ascorbic Acid (Vitamin C) 500 mg BID PO Last administered on 10/26/18 20:44; Admin Dose 500 MG; Start 10/13/18 at 21:00 Zinc Sulfate (Zinc Sulfate) 220 mg DAILY PO Last administered on 10/27/18 08:56; Admin Dose 220 MG; Start 10/14/18 at 09:00 Multivit/Ca Carb/ B Cmplx/FA/Prenat (Natalie-Carmen) 1 tab DAILY PO Last administered on 10/26/18 09:00; Admin Dose 1 TAB; Start 10/14/18 at 09:00 SARAH MENDEZ NP Oct 27, 2018 11:42
--- NOTE | 2018-10-27 13:19 | PN ---
Date/Time of Note Date/Time of Note DATE: 10/27/18 TIME: 13:18 Objective Vitals Vital Signs Date Temp Pulse Resp B/P (MAP) Pulse Ox O2 O2 Flow FiO2 Time Delivery Rate 10/27/18 98.9 69 17 98/50 (66) 97 Room Air 07:57 Intake and Output 10/26/18 10/26/18 10/27/18 1515:00 23:00 07:00 IntakeIntake Total 1040 ml 1600 ml 750 ml BalanceBalance 1040 ml 1600 ml 750 ml Results Result Diagram: 10/25/18 0425 10/25/18 0425 Medications Medications Current Medications IV Flush (NS 3 ml) 3 ml PER PROTOCOL IV Last administered on 10/25/18at 08:38; Admin Dose 3 ML; Start 10/04/18 at 02:30 Acetaminophen (Tylenol Tab) 650 mg Q6H PRN PO .PAIN 1-3 OR TEMP; Start 10/04/18 at 02:30 Docusate Sodium (Colace) 100 mg Q12H PRN PO .CONSTIPATION; Start 10/04/18 at 02:30 Bisacodyl (Dulcolax) 5 mg DAILY PRN PO .CONSTIPATION; Start 10/04/18 at 02:30 Hydromorphone HCl (Dilaudid) 0.5 mg Q6H PRN IV PAIN LEVEL 6-10 Last administered on 10/25/18 16:48; Admin Dose 0.5 MG; Start 10/05/18 at 15:00 Acetaminophen/ Hydrocodone Bitart ([place] (5/325)) 1 tab Q6H PRN PO PAIN LEVEL 6-10 Last administered on 10/26/18 15:45; Admin Dose 1 TAB; Start 10/05/18 at 15:00 Ondansetron HCl (Zofran Inj) 4 mg Q6H PRN IV NAUSEA AND/OR VOMITING Last ad ministered on 10/24/18 14:57; Admin Dose 4 MG; Start 10/05/18 at 15:00 Acetaminophen/ Hydrocodone Bitart ([place] (5/325)) 1 tab Q6H PRN PO .MOD PAIN 4- 6 Last administered on 10/11/18 18:11; Admin Dose 1 TAB; Start 10/05/18 at 15:30 Diphenhydramine HCl (Benadryl) 25 mg Q6H PRN PO ITCHING Last administered on 10/10/18at 21:02; Admin Dose 25 MG; Start 10/07/18 at 11:30 Loratadine (Claritin) 10 mg DAILY PO Last administered on 10/27/18at 08:56; Admin Dose 10 MG; Start 10/07/18 at 11:30 VTE Prophylaxis Risk score (from Ns)>0 risk: 1 SCD applied (from [facility] [place] No SCD contraindication: other Lines/Catheters IV Catheter Type: Irene in Place: No Assessment/Plan Hospital Course Subjective Patient doing well Objective Physical exam General: Patient is laying in bed and answers questions appropriately Mentation: Patient is alert and oriented 4, Head: Normocephalic atraumatic Eyes: EOMI, pupils reactive to light Neck: Supple, nontender, midline Respiratory: Clear to auscultation bilaterally Cardiovascular: regular rate, no obvious murmurs Gastrointestinal: non-tender to palpation, bowel sounds heard. Neurological: Moves all extremities spontaneously Skin: Left breast and abdominal area bandaged, CDI Assessment/Plan 1. Left abdominal wall soft tissue infection. -Status post surgical debridement on 10/05/2018. -Cultures showing Staph aureus. -Continue antimicrobials as per ID. -Continue local wound care. 2. Left breast soft tissue infection/abscess. -Status post surgical debridement on 10/05/2018. -Cultures showing staph aureus -Continue local wound care. -Continue antimicrobials as per ID. 3. Left groin erythema. -Resolved -nystatin stopped. 4. Fluids, electrolytes, and nutrition. -Regular diet. 5. DVT prophylaxis. -Bilateral SCDs. 6. Plan. -Continue antimicrobials as per ID. -Continue local wound care. -Pending [facility]. The patient needs home health to be arranged upon discharge. CLEMENTE DOMINGUEZ Oct 27, 2018 13:19
[2018-10-27 14:00] VITALS: BP 117/59; PULSE 74; RESP 17
[2018-10-27] MEDS: HYDROCODONE/APAP (5/325) TAB PO PRN ×2 (16:39→23:34)
[2018-10-27 19:28] VITALS: BP 127/66; PULSE 64; RESP 16
[2018-10-28] MEDS ORDERED: NYSTATIN 15 GM OINT TOP SCH
[2018-10-28 02:07] VITALS: BP 117/62; PULSE 67; RESP 16
[2018-10-28 08:29] VITALS: BP 107/61; PULSE 60; RESP 15
--- NOTE | 2018-10-28 09:22 | PN ---
Date/Time of Note Date/Time of Note DATE: 10/28/18 TIME: 09:21 Assessment/Plan VTE Prophylaxis Risk score (from Ns)>0 risk: 1 [place] [facility] [place] contraindicated: other Pharmacological prophylaxis: NA/contraindicated Pharm contraindication: low risk/ambulating Lines/Catheters IV [facility] Type (from [facility] Urinary Cath still in place: No Assessment/Plan Hospital Course SUBJECTIVE: Pain better controlled. OBJECTIVE: Physical Exam General: Adequately build 62 year-old female lying in bed in no apparent distress. HEENT: Normocephalic, atraumatic. Eyes: Anicteric sclerae, conjunctivae clear. ENT: Nasal septum midline, oral mucosa moist. Neck supple, no JVD noticed. Respiratory: Bilaterally clear breath sounds. No use of accessory muscles of respiration. No adventitious breath sounds. Cardiovascular: S1, S2 heard. Regular rate and rhythm. Abdomen: . Bowel sounds positive in all 4 quadrants. LLQ incision with packing in it. Wound bed clean with no purulent secretions. Genitourinary: Deferred. Extremities: No cyanosis, no clubbing, no edema. Peripheral pulses palpable. Neurologic: Cranial nerves II through XII grossly intact. The patient is awake, alert, and oriented. Skin (examined in the presence of a female laminating machine tender): Left breast incision with wound bed red and no purulent secretions. Labs & Vitals per chart ASSESSMENT & PLAN 62-year-old female with no significant past medical history, who was sent by her primary care physician because of an abscess on her left breast and abdomen, who was admitted to inpatient setting for further treatment and evaluation. 1. Left abdominal wall soft tissue infection. -Status post surgical debridement on 10/05/2018. -Cultures showing Staph aureus. -S/P antimicrobials as per ID. -Continue local wound care. 2. Left breast soft tissue infection/abscess. -Status post surgical debridement on 10/05/2018. -Cultures showing staph aureus -Continue local wound care. -S/P antimicrobials as per ID. 3. Acute onset periorbital edema and erythema of the face after starting vitamin supplements. -Vitamin supplements discontinued. -Continue the patient on histamine 1 and histamine 2 blockade. Start tapering dose of steroids. 4. Fluids, electrolytes, and nutrition. -Regular diet. 5. DVT prophylaxis. -Bilateral SCDs. 6. Plan. -Continue local wound care. -Pending [facility]. The patient needs home health to be arranged upon discharge. The patient was seen in collaboration with Dr. Dang. Result Diagram: 10/25/1842410/25/18424 Exam/Review of Systems Exam Vitals Vital Signs Date Temp Pulse Resp B/P (MAP) Pulse Ox O2 O2 Flow FiO2 Time Delivery Rate 10/28/18 98.3 60 15 107/61 97 08:29 (76) 10/27/18 Room Air 14:00 Intake and Output 10/27/18 10/27/18 10/28/18 1414:59 22:59 06:59 IntakeIntake Total 620 ml BalanceBalance 620 ml Medications Medication Current Medications IV Flush (NS 3 ml) 3 ml PER PROTOCOL IV Last administered on 10/25/18 08:38; Admin Dose 3 ML; Start 10/04/18 at 02:30 Acetaminophen (Tylenol Tab) 650 mg Q6H PRN PO .PAIN 1-3 OR TEMP; Start 10/04/18 at 02:30 Docusate Sodium (Colace) 100 mg Q12H PRN PO .CONSTIPATION; Start 10/04/18 at 02:30 Bisacodyl (Dulcolax) 5 mg DAILY PRN PO .CONSTIPATION; Start 10/04/18 at 02:30 Hydromorphone HCl (Dilaudid) 0.5 mg Q6H PRN IV PAIN LEVEL 6-10 Last administered on 10/25/18 16:48; Admin Dose 0.5 MG; Start 10/05/18 at 15:00 Acetaminophen/ Hydrocodone Bitart ([place] (5/325)) 1 tab Q6H PRN PO PAIN LEVEL 6 -10 Last administered on 10/27/18 23:34; Admin Dose 1 TAB; Start 10/05/18 at 15:00 Ondansetron HCl (Zofran Inj) 4 mg Q6H PRN IV NAUSEA AND/OR VOMITING Last administered on 10/24/18 14:57; Admin Dose 4 MG; Start 10/05/18 at 15:00 Acetaminophen/ Hydrocodone Bitart ([place] (5/325)) 1 tab Q6H PRN PO .MOD PAIN 4- 6 Last administered on 10/11/18 18:11; Admin Dose 1 TAB; Start 10/05/18 at 15:30 Diphenhydramine HCl (Benadryl) 25 mg Q6H PRN PO ITCHING Last administered on 10/10/18at 21:02; Admin Dose 25 MG; Start 10/07/18 at 11:30 Loratadine (Claritin) 10 mg DAILY PO Last administered on 10/27/18 08:56; Admin Dose 10 MG; Start 10/07/18 at 11:30 Nystatin (Nystatin Oint) 1 applic PRN TOP Last administered on 10/28/18at 06:35; Admin Dose 1 APPLIC; Start 10/28/18 at 00:00 BÁRBARA CHANG NP Oct 28, 2018 09:22
[2018-10-28] MEDS: LORATADINE 10 MG TAB PO SCH (09:47)
[2018-10-28] MEDS: METHYLPREDNISOLONE 40 MG INJ IV SCH ×2 (11:26→20:59)
[2018-10-28 14:37] VITALS: BP 132/76; PULSE 77; RESP 16
[2018-10-28 19:31] VITALS: BP 112/62; PULSE 73; RESP 16
[2018-10-28] MEDS: FAMOTIDINE 20 MG TAB PO SCH (20:58)
[2018-10-29 01:45] VITALS: BP 112/65; PULSE 84; RESP 16
[2018-10-29 08:04] VITALS: BP 103/64; PULSE 67; RESP 16
[2018-10-29] MEDS: LORATADINE 10 MG TAB PO SCH (08:56)
[2018-10-29] MEDS: FAMOTIDINE 20 MG TAB PO SCH (08:56)
[2018-10-29] MEDS: METHYLPREDNISOLONE 40 MG INJ IV SCH (08:56)
--- NOTE | 2018-10-29 09:18 | PN ---
Assessment/Plan VTE Prophylaxis Risk score (from [facility])>0 risk: 1 Assessment/Plan Result Diagram: 10/25/18 0425 10/25/18 0425 Exam/Review of Systems Exam Vitals Medications Medication BÁRBARA CHANG NP Oct 29, 2018 09:18
--- NOTE | 2018-10-29 14:17 | PDOCDIS ---
Discharge Instructions CONDITION [id number] Patient Condition: [id number] Stable HOME CARE INSTRUCTIONS: [id number] Diet Instructions: [id number] Regular FOLLOW UP/APPOINTMENTS Follow-up Plan Jeremy Mckeon MD Specialty: Internal Medicine Office Address: [address] [place] [address] [place], [place] [id number] Office OTHER ORDERS: Other Orders: 1. Do daily dressing changes of the wounds as instructed. 2. Take a regular diet. 3. Resume activities as tolerated. 4. Follow-up with your primary care physician in 1 week. If you do not have a primary care physician, please call Dr. Jeremy Mckeon's office. 5. Please go to the nearest emergency room if you have persistent fevers, worsening of wound including foul-smelling wound, increased pus coming out of th e wound, increased redness around the wound, or any other unusual signs/symptoms. BÁRBARA CHANG NP Oct 29, 2018 14:17
--- NOTE | 2018-10-29 14:33 | DS ---
Date/Time of Note Date/Time of Note DATE: 10/29/18 TIME: 14:31 Discharge Summary Admission/Discharge Info Admit Date/Time October 04, 2018 at 23:07 Discharge Date/Time Discharge Diagnosis 1. Left abdominal wall soft tissue infection. Status post surgical debridement on 10/05/2018. 2. Left breast soft tissue infection/abscess. Status post surgical debridement on 10/05/2018. 3. Acute onset periorbital edema and erythema of the face after starting vitamin supplements. Largely resolved. Patient Condition: Stable Consults 1. Aric Collins MD, General Surgery. 2. Adam Mahajan MD, Infectious Diseases. Procedures Operative Report Free Text/Dictation Operative report Procedure Date: October 05, 2018 Preoperative Diagnosis 1) Left abdominal wall soft tissue infection 2) left lateral breast soft tissue infection abscess Postoperative Diagnosis Same Operation/Procedure Performed Wide debridement soft tissue infection left anterior abdominal wall and left lateral breast Surgeon Aric Collins Left Breast Ultrasound IMPRESSION: 1. 2.7 x 0.8 cm heterogeneous subcutaneous lesion at the 3 o'clock position of the left breast. This may represent a complex fluid collection or abscess. CT Abdomen & Pelvis IMPRESSION: Skin thickening and subcutaneous stranding across the lower ventral abdominal wall with a focal area of nodular thickening within the left lower ventral abdominal wall measuring 2.3 x 1.5 cm. Findings could suggest an abscess; however, study is limited by lack of intravenous contrast. Hx of Present Illness This is a 62-year-old female with no significant past medical history, who was sent by her primary care physician because of an abscess on her left breast and abdomen, who was admitted to inpatient setting for further treatment and evaluation. Hospital Course A general surgery consult was obtained. The patient was taken to the OR on 10/05/2018 the patient underwent a surgical debridement of the left abdominal wall wound. The patient also underwent surgical debridement of the left breast soft tissue infection/abscess on the same day. Cultures showed Staph aureus. The patient was maintained on antimicrobials as per infectious disease for the recommended duration. Etiology of the patient's underlying soft tissue infection/abscess is unclear. The patient is nondiabetic. The patient does not have any other risk factors for soft tissue infection. Nevertheless, the patient responded well to the antimicrobial therapy. The patient was provided in with daily dressing changes as per the surgeon. The patient could not be discharged home in a timely fashion with arrangement of outpatient home health and IV antibiotics because of lack of health insurance. Therefore, the patient's stay was delayed until the patient's antimicrobial therapy was finished and until the patient was in a state to do her own dressing changes safely without any follow-ups confirmed because of lack of health insurance. The patient had acute onset of periorbital edema and facial erythema on 10/27/2018 that started after she was started on vitamin C and zinc. Therefore, these vitamins/nutrients were discontinued and the patient was maintained on histamine 1 and histamine 2 blockade with a short course of steroids with improvement in the patient's symptoms. The patient had a stable, but prolonged hospital course because of lack of health insurance to confirm outpatient follow-up as well as outpatient antibiotic therapy along with dressing changes. Discharge Instructions 1. Do daily dressing changes of the wounds as instructed. 2. Take a regular diet. 3. Resume activities as tolerated. 4. Follow-up with your primary care physician in 1 week. If you do not have a primary care physician, please call Dr. Jeremy Mckeon's office. 5. Please go to the nearest emergency room if you have persistent fevers, worsening of wound including foul-smelling wound, increased pus coming out of the wound, increased redness around the wound, or any other unusual signs/symptoms. The patient verbalized understanding of her discharge instructions. At this time would like to thank all the consultants for seeing the patient, doing the necessary procedures, and providing clinical recommendations. The patient was seen in collaboration with Dr. Dang. Home Meds Discontinued Reported Medications Ibuprofen* (Advil*) 200 Mg Capsule, 200 MG PO Q6H PRN for PAIN, CAP 10/04/18 Follow-up Plan Jeremy Mckeon MD Specialty: Internal Medicine Office Address: [address] [place] [address] [place] [id number] Office Primary Care Provider Not On Staff Doctor Time spent on discharge: > 30 minutes BÁRBARA CHANG NP Oct 29, 2018 14:33
[2018-10-29 14:40] VITALS: BP 117/62; PULSE 64; RESP 18
== END 2018-10-29 18:10 | disposition home or self-care (01) | DRG 572 ==
LOC: E/R 21:37 → 2NE 10-04 00:48 → OBSVTOIN 10-04 23:07
PROVIDERS: ADMIT Family Medicine; ATTEND Internal Medicine
PROC: 0HBU0ZZ Excision of Left Breast, Open Approach (ICD-10-PCS; 2018-10-05)
PROC: 0JB80ZZ Excision of Abdomen Subcutaneous Tissue and Fascia, Open Approach (ICD-10-PCS; principal; 2018-10-05 14:00)
DX: L02.211 Cutaneous abscess of abdominal wall (principal); L03.311 Cellulitis of abdominal wall; N61.1 Abscess of the breast and nipple; I10 Essential (primary) hypertension; B95.61 Methicillin susceptible Staphylococcus aureus infection as the cause of diseases classified elsewhere; B37.2 Candidiasis of skin and nail; H05.229 Edema of unspecified orbit; L53.9 Erythematous condition, unspecified; T45.2X5A Adverse effect of vitamins, initial encounter
CPT/HCPCS: 36415; 71045; 74176; 76642; 80048; 80053; 80061; 80069; 80202; 80307; 81003; 83036; 83605; 83735; 84100; 84439; 84443; 84484; 85025; 85610; 85730; 87070; 87075; 87081; 87086; 87102; 87116; 88305; 93005; G0378; J0690; J1170; J1953; J2175; J2250; J2270; J2405; J2543; J2920; J3010; J3370; J7030